=== PATIENT | male | born 1950 | race Caucasian/White ===

== ENCOUNTER → 2016-04-02 | Outpatient (CLI) | payer OTHER ==
[~2016-04-02] MED LIST: ASPI325T39 PO; ATOR10TA88 PO; BUPR-79 PO; BUPRTAB51 PO; CHOL1000 PO; CHOL100010 PO; CIPR-255 PO; COEN100C7 PO; DOXA4TAB PO; DTRSR/2 PO; FLUO20CA35 PO; GLUCTAB7 PO; MULT-506 PO; NAPR1TAB9 PO; OMEG10007 PO; VORT10TA12 PO
--- NOTE | 2016-04-08 07:14 | CODING QUERY MEDICAL NECESSITY ---
SUPPORTING DIAGNOSIS NEEDED A supporting diagnosis is required for the test/procedure performed on this patient in order for us to be reimbursed by the patient's insurance. Please provide a supporting diagnosis for the following test/procedure listed below next to the test name along with your signature. *If there is no additional diagnosis for this patient that would support the following test/procedure please document that below next to the test/procedure. Test(s)/Procedure(s) that require a supporting diagnosis: * PSA DIAGNOSIS: * DOS: 04/02/16 Provider Signature: Date: Thank you Neha Rubin [address] Information Management Once completed, please kindly fax back to [phone] For questions please call [phone]
== END | disposition home or self-care (01) ==
LOC: C.LABPBG 09:33
PROVIDERS: ATTEND Urology
DX: C67.9 Malignant neoplasm of bladder, unspecified (principal); N40.0 Benign prostatic hyperplasia without lower urinary tract symptoms

== ENCOUNTER 2016-07-03 05:08 | Day surgery (SDC) | payer OTHER ==
[2016-06-20 08:33] VITALS: BMI 32.0
--- NOTE | 2016-06-20 09:01 | PAT Medication Instructions ---
Service Date June 20, 2016. Current Home Medication List Atorvastatin (Lipitor), 10 MG PO HS Bupropion (Wellbutrin Sr), 150 MG PO QAM Cholecalciferol (Vitamin D), 1,000 INTER.UNIT PO HS Coenzyme Q10 (Ubidecarenone) (Coq10), 100 MG PO HS Doxazosin Mesylate (Bph) (Cardura Xl), 1 TAB PO HS Fish Oil ([place]-3), 1 CAP PO QAM Kkpqlzdqckf-Sakrzsuzznp-Odi C- (Glucosamine Chondroitin), 1 TAB PO HS Multivitamin (Multivitamin), 1 TAB PO QAM Naproxen (Aleve), 220 MG PO PRN Tolterodine Tartrate (Detrol LA), 1 CAP PO BID Vortioxetine HBr (Trintellix), 10 MG PO QAM Medication Instructions For Your Scheduled Surgery - Hold the following medications as of 06/21/16: Coenzyme Q10 (Ubidecarenone) (Coq10), 100 MG PO HS Fish Oil ([place]-3), 1 CAP PO QAM Kjjirkawbbg-Bjxynswbzhw-Ghn C- (Glucosamine Chondroitin), 1 TAB PO HS - Hold the following medications the morning of surgery: Multivitamin (Multivitamin), 1 TAB PO QAM Naproxen (Aleve), 220 MG PO PRN (otherwise okay to continue per surgeon) - Take the following medications the morning of surgery with a sip of water OTHERWISE NOTHING TO EAT OR DRINK AFTER MIDNIGHT: Bupropion (Wellbutrin Sr), 150 MG PO QAM Vortioxetine HBr (Trintellix), 10 MG PO QAM Tolterodine Tartrate (Detrol LA), 1 CAP PO BID - Take the following medications as scheduled the night before surgery: Cholecalciferol (Vitamin D), 1,000 INTER.UNIT PO HS Doxazosin Mesylate (Bph) (Cardura Xl), 1 TAB PO HS Atorvastatin (Lipitor), 10 MG PO HS Tolterodine Tartrate (Detrol LA), 1 CAP PO BID If you have any questions please call us at [phone] or [phone] or [phone]
--- NOTE | 2016-06-20 09:50 | DIAGNOSTIC IMAGING REPORT ---
CHEST PREADMISSION(PA/LAT) CLINICAL HISTORY: Preoperative evaluation. COMPARISON STUDY: Chest radiograph October 30, 2014. FINDINGS: Lung volumes are normal. There is no pneumothorax or pleural effusion. Mild bibasilar opacities favor atelectasis. There may be a trace right pleural effusion. No evidence of pulmonary edema. Cardiac size is normal. Mediastinal contours are normal. IMPRESSION: 1. Mild bibasilar opacities which favor atelectasis. 2. Trace right pleural effusion. No evidence of pulmonary edema. Electronically signed by: Aki Flores M.D. 06/20/2016 9:48 AM Dictated Date/Time: 06/20/2016 9:44 AM
[2016-06-20 10:06] LABS: BASO % 0.8 %; BASO ABS # 0.04 K/uL (0-0.2); COMPLETE YES; EOS % 5.1 %; HEMATOCRIT 46.8 % (42-52); IG% 0.2 %; LYMPH % 26.7 %; MEAN CELL VOLUME 91.2 fL (80-100); MEAN CORPUSCULAR HGB CONC 32.9 g/dl (32-36); MEAN PLATELET VOLUME 10.4 fL (7.4-10.4); MONO % 10.7 %; NEUT % 56.5 %; PLATELET COUNT 206 K/uL (130-400); RED BLOOD COUNT 5.13 M/uL (4.7-6.1); WHITE BLOOD COUNT 4.86 K/uL (4.8-10.8)
[2016-06-20 10:14] LABS: URINE APPEARANCE CLEAR (CLEAR); URINE BILIRUBIN NEG (NEG); URINE COLOR YELLOW; URINE NITRITE NEG (NEG); UROBILINOGEN NEG (NEG)
[2016-06-20 10:15] LABS: MANUAL MICROSCOPIC REQUIRED? NO; REVIEW REQ? NO
[2016-06-20 10:20] LABS: BUN/CREATININE RATIO 26.2 (10-20); CREATININE 0.9 mg/dl (0.60-1.40); POTASSIUM 4.5 mmol/L (3.5-5.1)
[~2016-07-03] VITALS: Ht 190.5 cm; Wt 119.0 kg
[~2016-07-03 05:08] MED LIST changes: -ASPI325T39 PO; +ATOR10TA82 PO; -ATOR10TA88 PO; -BUPRTAB51 PO; -CHOL1000 PO; -CIPR-255 PO; -FLUO20CA35 PO
[2016-07-03 05:41] VITALS: BP 123/76; PULSE 66; TEMP 36.4; O2SAT 95; Ht 190.5 cm; Wt 119.0 kg
[2016-07-03] MEDS ORDERED: CIPROFLOXACIN / D5W 400 MG IV SCH (06:00)
[2016-07-03] MEDS ORDERED: LACTATED RINGER'S 1000ML 1,000 ML IV SCH (06:00)
[2016-07-03] MEDS ORDERED: ONDANSETRON INJ 2 MG/ML 2 ML VIAL ONE (07:05)
[2016-07-03] MEDS ORDERED: PROPOFOL IV EMULSION 10 MG/ML 20 ML VIAL IV ONE (07:05)
[2016-07-03] MEDS ORDERED: FENTANYL CITRATE INJ 50 MCG/1 ML 2 ML VIAL ONE (07:05)
[2016-07-03] MEDS ORDERED: DEXAMETHASONE SOD INJ 4 MG/ML VIAL ONE (07:05)
[2016-07-03] MEDS ORDERED: LIDOCAINE HCL 2% 2 ML VIAL (20MG/ML) ONE (07:05)
[2016-07-03] MEDS ORDERED: MIDAZOLAM HCL 1 MG/ML 2ML VIAL ONE (07:05)
--- NOTE | 2016-07-03 07:13 | History & Physical Bridge Note ---
H&P Re-Evaluation Bridge Note: I have examined the patient, reviewed the History & Physical and in the interval since the performance of the History & Physical I have noted the following changes of clinical significance: No changes noted
[2016-07-03] MEDS ORDERED: EpHEDrine SULFATE INJ 50 MG/ML AMP ONE (07:50)
[2016-07-03] MEDS ORDERED: CIPR-255 PO (08:06)
--- NOTE | 2016-07-03 08:06 | [facility] Post Operative Brief Note ---
Immediate Operative Summary Operative Date July 03, 2016. Pre-Operative Diagnosis Benign Hypertrophy of the Prostate Post-Operative Diagnosis Same as preop Procedure(s) Performed Cystoscopy; Urolift Surgeon Dr. Heard Rat Exterminator Surgeon(s) none Estimated Blood Loss 0 ml Findings Lateral lobe hypertrophy, slightly asymmetric with the left side more protuberant than the right. 3 implants placed on the left, 2 on the right. Specimens None Drains 18F catheter Anesthesia gen Complication(s) None Disposition Recovery Room / PACU (stable)
[2016-07-03] MEDS ORDERED: PHENAZOPYRIDINE HCL 200 MG TAB PO STA (08:09)
[2016-07-03] MEDS ORDERED: SODIUM CHLORIDE 0.9% 1000ML 1,000 ML IV SCH (08:09)
--- NOTE | 2016-07-03 08:09 | Discharge Instructions ---
Discharge Instructions Date of Service July 03, 2016. Admission Reason for Admission: Benign Prostatic Hyperplasia Discharge Discharge Diagnosis / Problem: BPH Discharge Goals Goal(s): Decrease discomfort, Improve function, Increase independence, Improve disease control, Prevent Disease Progression Activity Recommendations Activity Limitations: resume your previous activity Lifting Limitations: gradually increase as tolerated Exercise/Sports Limitations: gradually increase as tolerated May Resume Sexual Activity: when tolerated Shower/Bathe: no limitations Driving or Machine Use: resume 1 day after discharge . Instructions / Follow-Up Instructions / Follow-Up Please come to Dr. Heard's office to have your catheter removed tomorrow. Please continue all of your meds (tolterodine and doxazosin) until after your follow up appointment with Dr. Heard. It is normal to have some blood in your urine as well as some discomfort in the pelvis. After the catheter is removed, you will likely have some urinary urgency and frequency as a result of the procedure. This will improve with time. Discharge Diet Recommended Diet: Regular Diet Procedures Procedures Performed: Cystoscopy; Urolift Pending Studies Studies pending at discharge: no Medical Emergencies . Who to Call and When: Medical Emergencies: If at any time you feel your situation is an emergency, please call 911 immediately. . Non-Emergent Contact Non-Emergency issues call your: Urologist Call Non-Emergent contact if: you have a fever, temperature is above 101.5, your pain is not controlled, your pain is worsening . . "Provider Documentation" section prepared by Kal Lopez. . VTE Core Measure Inpt VTE Proph given/why not?: Treatment not indicated
[2016-07-03] MEDS ORDERED: ATROPINE SULFATE 0.1 MG/ML 5ML SYR IV PRN (08:15)
[2016-07-03] MEDS ORDERED: OXYCODONE/ACETAMINOPHEN 5-325 TAB PO PRN ×2 (08:15)
[2016-07-03] MEDS ORDERED: ACETAMINOPHEN 325 MG TAB PO PRN (08:15)
[2016-07-03] MEDS ORDERED: EpHEDrine SULFATE INJ 50 MG/ML AMP IV PRN (08:15)
[2016-07-03] MEDS ORDERED: PHENAZOPYRIDINE HOME PACK 200 MG VIAL PO ONE (08:30)
[2016-07-03 08:45] VITALS: BP 119/74; PULSE 69; TEMP 36.4; O2SAT 97
--- NOTE | 2016-07-03 09:02 | OPERATIVE REPORT ---
DATE OF OPERATION: 07/03/2016 PREOPERATIVE DIAGNOSIS: Benign prostatic hypertrophy. POSTOPERATIVE DIAGNOSIS: Benign prostatic hypertrophy. PROCEDURE PERFORMED: Cystoscopy and UroLift prostatic urethral lift. SURGEON: Dr. Heard. ANESTHESIA: General. ESTIMATED BLOOD LOSS: 0. URINE OUTPUT: Not recorded. SPECIMENS: None. DRAINS: An 18-Georgian Dickerson catheter. OPERATION AND FINDINGS: DESCRIPTION OF THE PROCEDURE: Dillan Farr was identified in the preoperative holding area. Appropriate informed consents were reviewed and completed and the patient was transported to the operating suite. Upon arrival, he received appropriate preoperative antibiotics in the form of ciprofloxacin. Adequate general anesthesia was achieved and the patient was placed in dorsal lithotomy position where he was sterilely prepped and draped in standard fashion. I began the case by utilizing a 0 degree lens and the UroLift provided cystoscope with visual obturator. Inspection of the urethra revealed no evidence of stricture disease. Prostate was inspected and found to have a notable lateral lobe hypertrophy with the more prominent left lateral lobe rather than right. Estimated prostatic volume was approximately 40-50 mL. Inspection of the bladder revealed moderate trabeculation and no evidence of any other mucosal disease or other abnormalities. Following this inspection, I exchanged the visual obturator for the UroLift device. The first implant was placed approximately 1.5 centimeters from the bladder neck on the patient's left hand side. This was placed approximately 2/3 of the distance from posterior to anterior on the anterior side. The device was fired without difficulty and the stitch trimmed appropriately with good placement of device. I then advanced the cystoscope back into the bladder and exchanged this device for a new device. The next stitch was placed on the right side again 1.5 centimeters from the bladder neck in a similar location to its mirror image. There was excellent deployment without difficulty. The cystoscope was then advanced back into the bladder and exchanged again. Placement of the suture near the apex of the prostate by finding the verumontanum and moving just inside and advancing 2/[address] towards the anterior surface pushing laterally by approximately 20 degrees. This stitch was placed without difficulty and trimmed appropriately. I advanced back to the bladder and exchanged for a fourth device. This was placed on the mirror image location adjacent to the verumontanum on the right side. Of note, given that it had somewhat of an asymmetric left lateral lobe he still had some protuberance between these 2 stitches on the left hand side. A fifth load was placed directly between my previously placed loads. I did slightly elevate this lateral lobe tacking it anteriorly and laterally. After placing this stitch I inspected from the verumontanum and saw a nice open anterior channel from the veru into the bladder. I then left the bladder full. There was excellent hemostasis. I withdrew the cystoscope. An 18-Georgian coude catheter was placed without difficulty and the patient was reversed from anesthesia and taken to the PACU in stable condition. I attest to the content of the Intraoperative Record and any orders documented therein. Any exceptio ns are noted below.
[2016-07-03 09:15] VITALS: BP 116/74; PULSE 60; TEMP 36.4; O2SAT 98
[2016-07-03 09:45] VITALS: BP 129/69; PULSE 64; TEMP 36.8; O2SAT 97
--- NOTE | 2016-07-03 14:29 | Anesthesiology Progress Note ---
Anesthesia Post Op Note Date & Time July 03, 2016 at 14:29 Vital Signs Pain Intensity: 2 Vital Signs Past 12 Hours Date Time Temp Pulse Resp B/P Pulse Ox O2 Delivery O2 Flow Rate FiO2 07/03/16 09:45 36.8 64 16 129/69 97 Room Air 07/03/16 09:15 36.4 60 16 116/74 98 Room Air 07/03/16 08:45 36.4 69 16 119/74 97 Nasal Cannula 2 07/03/16 08:25 62 16 118/78 97 Nasal Cannula 3 07/03/16 08:15 66 16 125/73 96 Nasal Cannula 3 07/03/16 08:05 65 16 129/80 97 Mask 6 07/03/16 07:58 36.2 72 16 125/76 96 Mask 10 07/03/16 05:41 36.4 66 18 123/76 95 Room Air Notes Mental Status: alert / awake / arousable, participated in evaluation Pt Amnestic to Procedure: Yes Nausea / Vomiting: adequately controlled Pain: adequately controlled Airway Patency, RR, SpO2: stable & adequate BP & HR: stable & adequate Hydration State: stable & adequate Anesthetic Complications: no major complications apparent
[2016-11-14] MEDS ORDERED: CHOL1000 PO (11:25)
== END 2016-07-03 09:55 | disposition home or self-care (01) ==
LOC: C.ACU 05:08
PROVIDERS: ATTEND Urology
DX: N40.1 Benign prostatic hyperplasia with lower urinary tract symptoms (principal); R35.0 Frequency of micturition; R39.15 Urgency of urination; N52.9 Male erectile dysfunction, unspecified; Z85.51 Personal history of malignant neoplasm of bladder; I35.8 Other nonrheumatic aortic valve disorders; I48.0 Paroxysmal atrial fibrillation; G25.0 Essential tremor; F32.9 Major depressive disorder, single episode, unspecified; F90.9 Attention-deficit hyperactivity disorder, unspecified type; E78.00 Pure hypercholesterolemia, unspecified; G60.9 Hereditary and idiopathic neuropathy, unspecified; F51.11 Primary hypersomnia; G47.30 Sleep apnea, unspecified; M99.06 Segmental and somatic dysfunction of lower extremity; Z79.899 Other long term (current) drug therapy

== ENCOUNTER → 2016-07-18 | Outpatient (CLI) | payer OTHER ==
[~2016-07-18] MED LIST changes: +CHOL1000 PO; +CIPR-255 PO
--- NOTE | 2016-07-18 10:33 | DIAGNOSTIC IMAGING REPORT ---
AP PELVIS AND BILATERAL HIPS 5 VIEWS CLINICAL HISTORY: Bilateral hip pain COMPARISON: None. DISCUSSION: No acute fractures are visualized. There are no erosive or destructive changes. Prostate brachytherapy seeds are visualized. There are moderate osteoarthritic changes present within the left hip. There are minor osteoarthritic changes within the right hip. IMPRESSION: 1. No acute fractures 2. Moderate osteoarthritic changes within the left hip and minor osteoarthritic changes within the right hip. Electronically signed by: Enio Beach M.D. 07/18/2016 10:32 AM Dictated Date/Time: 07/18/2016 10:24 AM
== END | disposition home or self-care (01) ==
LOC: C.RDSM 09:52
PROVIDERS: ATTEND Family Medicine
DX: M25.551 Pain in right hip (principal); M16.12 Unilateral primary osteoarthritis, left hip

== ENCOUNTER → 2016-08-21 | Day surgery (SDC) | payer OTHER ==
[2016-08-13 13:14] VITALS: Ht 190.5 cm; Wt 115.9 kg
[~2016-08-21] VITALS: Ht 190.5 cm; Wt 115.9 kg
[~2016-08-21] MED LIST changes: -ATOR10TA82 PO; +ATOR10TA88 PO; -CIPR-255 PO; -DOXA4TAB PO; -DTRSR/2 PO; +PROPOFOL IV EMULSION 10 MG/ML 20 ML VIAL IV ONE; +SODIUM CHLORIDE 0.9% 500ML 500 ML IV ONE
[2016-08-21 13:20] VITALS: TEMP 36.7
--- NOTE | 2016-08-21 13:21 | Endo History and Physical ---
History & Physical Date of Service: Aug 21, 2016. Chief Complaint: history of polyp Referring Physician: Dr. Duran Nolan History of Present Illness 65 yo CM who presents for colonoscopy secondary to history of colon polyps. Past Medical History Arthritis, Male Genitourinary Prob., Anxiety, Cancer, High Cholesterol, Depression Past Surgical History Hx Cardiac Surgery: No Hx Internal Defibrillator: No Hx Pacemaker: No Hx Abdominal Surgery: Yes (APPY, COLON RESECTION (SBO), HERNIA REPAIR X3) Hx of Implantable Prosthesis: No Hx Post-Op Nausea and Vomiting: No Hx Cancer Surgery: Yes (TURBT/CYSTO) Hx Thoracic Surgery: No Hx Orthopedic: Yes (RT LEG SURG, LT HAND SURG) Hx Urinary Tract Surgery: Yes (CYSTO X MULTIPLE Q 4-6 MONTHS) Family History None Social History Smoking Status: Never Smoker Hx Substance Use: No Hx Alcohol Use: Yes (RARELY) Allergies Coded Allergies: Penicillin V (Verified Allergy, Unknown, RASH, SKIN DISCOLORATION, 08/13/16 ) Ether (Verified Adverse Reaction, Unknown, SEVERE N/V, 08/13/16) Current Medications Reported Home Medications Medications Dose Route/Sig Max Daily Dose Days Date Category Aleve (Naproxen) 220 Mg Tab 220 Mg PO PRN 06/20/16 Reported Coq10 (Coenzyme Q10 (Ubidecarenone)) 100 Mg Cap 100 Mg PO HS 06/20/16 Reported Trintellix (Vortioxetine HBr) 10 Mg Tab 10 Mg PO QAM 06/20/16 Reported Multivitamin (Multivitamins) Tab 1 Tab PO QAM 04/26/15 Reported [place]-3 (Fish Oil) 1 Ea Cap 1 Cap PO QAM 04/26/15 Reported Wellbutrin Sr (Bupropion HCl) 150 Mg Ertab 150 Mg PO QAM 04/26/15 Reported Vitamin D (Cholecalciferol) 1,000 Inter.unit Tab 1,000 Inter.unit PO HS 06/01/14 Reported Glucosamine Chondroitin (Nxbrcohqise-Kueyimmsvqu-Uqe C-) 1 Tab Tab 1 Tab PO HS 06/01/14 Reported Lipitor (Atorvastatin Calcium) 10 Mg Tab 10 Mg PO HS 04/30/14 Reported Vital Signs Weight (Kilograms): 115.91 Height (Feet): 6 Height (Inches): 3 Physical Exam General Appearance: WD/WN, no apparent distress Respiratory/Chest: Auscultation: breath sounds normal Cardiovascular: Heart Auscultation: RRR Abdomen: Bowel Sounds: normal Inspection & Palpation: soft, non-distended, no tenderness, guarding & rebound Assessment and Plan Assessment: 65 yo CM who presents for colonoscopy secondary to history of colon polyps. Plan: Proceed with colonoscopy.
--- NOTE | 2016-08-21 14:20 | GI REPORT ---
Procedure Date: 08/21/2016 1:44 PM Procedure: Colonoscopy Indications: High risk colon cancer surveillance: Personal history of colonic polyps Medicines: Monitored Anesthesia Care Complications: No immediate complications. Estimated Blood Loss: Estimated blood loss: none. Procedure: Pre-Anesthesia Assessment: - Prior to the procedure, a History and Physical was performed, and patient medications and allergies were reviewed. The patient's tolerance of previous anesthesia was also reviewed. The risks and benefits of the procedure and the sedation options and risks were discussed with the patient. All questions were answered, and informed consent was obtained. Prior Anticoagulants: The patient has taken no previous anticoagulant or antiplatelet agents. ASA Grade Assessment: II - A patient with mild systemic disease. After reviewing the risks and benefits, the patient was deemed in satisfactory condition to undergo the procedure. After I obtained informed consent, the scope was passed under direct vision. Throughout the procedure, the patient's blood pressure, pulse, and oxygen saturations were monitored continuously. The scope was introduced through the anus and advanced to the terminal ileum. The colonoscopy was performed without difficulty. The patient tolerated the procedure well. The quality of the bowel preparation was good. The ileocecal valve, appendiceal orifice, and rectum were photographed. Findings: Scattered small-mouthed diverticula were found in the entire colon. Impression: - Diverticulosis in the entire examined colon. - No specimens collected. Recommendation: - Resume previous diet. - Continue present medications. - Repeat colonoscopy in 5 years for surveillance. - Return to primary care physician as previously scheduled. Yon Pa DO 08/21/2016 2:20:15 PM This report has been signed electronically. Note Initiated On: 08/21/2016 1:44 PM I attest to the content of the Intraoperative Record and orders documented therein, exceptions below
--- NOTE | 2016-08-21 14:32 | Discharge Instructions ---
Endoscopy Patient Instructions Date / Procedure(s) Performed Aug 21, 2016. Colonoscopy Allergy Information Coded Allergies: Penicillin V (Verified Allergy, Unknown, RASH, SKIN DISCOLORATION, 08/13/16 ) Ether (Verified Adverse Reaction, Unknown, SEVERE N/V, 08/13/16) Discharge Date / Findings Aug 21, 2016. Diverticulosis Medication Instructions Stopped Medication(s): stopped MVI,supplements 2 weeks ago OK to resume all medications today as prescribed Reported Home Medications Medications Dose Route/Sig Max Daily Dose Days Date Category Aleve (Naproxen) 220 Mg Tab 220 Mg PO PRN 06/20/16 Reported Coq10 (Coenzyme Q10 (Ubidecarenone)) 100 Mg Cap 100 Mg PO HS 06/20/16 Reported Trintellix (Vortioxetine HBr) 10 Mg Tab 10 Mg PO QAM 06/20/16 Reported Multivitamin (Multivitamins) Tab 1 Tab PO QAM 04/26/15 Reported [place]-3 (Fish Oil) 1 Ea Cap 1 Cap PO QAM 04/26/15 Reported Wellbutrin Sr (Bupropion HCl) 150 Mg Ertab 150 Mg PO QAM 04/26/15 Reported Vitamin D (Cholecalciferol) 1,000 Inter.unit Tab 1,000 Inter.unit PO HS 06/01/14 Reported Glucosamine Chondroitin (Ecbkmqvkcdd-Hzmxkffgzhx-Onq C-) 1 Tab Tab 1 Tab PO HS 06/01/14 Reported Lipitor (Atorvastatin Calcium) 10 Mg Tab 10 Mg PO HS 04/30/14 Reported Provider Instructions Activity Restrictions - No exercising or heavy lifting for 24 hours. - Do not drink alcohol the day of the procedure. - Do not drive a car or operate machinery until the day after the procedure. - Do not make any important decisions or sign important papers in 24 hours after the procedure. Following Day: - Return to full activity which may include returning to work/school. Diet Start your diet with liquids and light foods (jello, soup, juice, toast). Then eat your usual diet if not nauseated. Treatment For Common After Affects For mild abdominal pain, bloating, or excessive gas: - Rest - Eat lightly - Lie on right side Follow-Up Information Follow-up with Dr. Duran Nolan as scheduled Anesthesia Information What You Should Know You have had a procedure that required some medicine to reduce anxiety and discomfort. This treatment is called moderate sedation. After receiving the treatment, you may be sleepy, but you will be able to breathe on your own. The effects of the treatment may last for several hours. Follow these instructions along with Activity/Diet recommendations noted above: * Do NOT do anything where dizziness or clumsiness would be dangerous. * Rest quietly at home today, then you can be up and about tomorrow. * Have a responsible person stay with you the rest of today. * You may have had an I.V. today. If so, you may take the dressing off later today. Recommendations Call your doctor if: * Trouble breathing * Continuous vomiting for more than 24 hours * Temperature above 101 degrees * Severe abdominal pain or bloating * Pain not relieved by pain medicine ordered * There is increased drainage or redness from any incision * A large amount of rectal bleeding greater than 2-3 tablespoons. (If you had a polyp/s removed or have hemorrhoids, a small amount of blood - from the rectum is to be expected.) * You have any unanswered questions or concerns. IN THE EVENT OF A SERIOUS EMERGENCY, GO TO THE NEAREST EMERGENCY ROOM Your discharge instructions were prepared by provider Yon Pa. Patient Instructions Signature Page Dillan Farr Patient (or Guardian) Signature/Date: I have read and understand the instructions given to me by my caregivers. Caregiver/RN/Doctor Signature/Date: The above-named patient and/or guardian has received patient instructions on this date. + Original Patient Signature Page (only) stays with chart. Please make copy for patient.
[2016-08-21 14:47] VITALS: BP 113/86; PULSE 56; O2SAT 96
--- NOTE | 2016-08-26 15:03 | Anesthesiology Progress Note ---
Anesthesia Post Op Note Date & Time Aug 26, 2016 at 15:03 Vital Signs Pain Intensity: 0 Notes Mental Status: alert / awake / arousable, participated in evaluation Pt Amnestic to Procedure: Yes Nausea / Vomiting: adequately controlled Pain: adequately controlled Airway Patency, RR, SpO2: stable & adequate BP & HR: stable & adequate Hydration State: stable & adequate Anesthetic Complications: no major complications apparent
== END | disposition home or self-care (01) ==
LOC: C.GI 12:59
PROVIDERS: ATTEND Internal Medicine
DX: Z12.11 Encounter for screening for malignant neoplasm of colon (principal); Z86.010 Personal history of colon polyps; K57.30 Diverticulosis of large intestine without perforation or abscess without bleeding; E78.00 Pure hypercholesterolemia, unspecified; F41.9 Anxiety disorder, unspecified; F32.9 Major depressive disorder, single episode, unspecified; Z79.899 Other long term (current) drug therapy

== ENCOUNTER → 2016-12-10 | Day surgery (SDC) | payer OTHER ==
[2016-11-14 11:29] VITALS: Ht 190.5 cm; Wt 115.9 kg
[~2016-12-10] VITALS: Ht 190.5 cm; Wt 115.9 kg
[~2016-12-10] MED LIST changes: -CHOL100010 PO; +IOPAMIDOL INJ 61% 15 ML VIAL ONE; +LIDOCAINE HCL 1% MPF 5 ML VIAL ONE; -PROPOFOL IV EMULSION 10 MG/ML 20 ML VIAL IV ONE; -SODIUM CHLORIDE 0.9% 500ML 500 ML IV ONE; +SODIUM CHLORIDE 0.9% INJ 10 ML VIAL ONE
[2016-12-10 14:35] VITALS: TEMP 36.7
--- NOTE | 2016-12-10 14:37 | Discharge Instructions ---
Discharge Instructions Date of Service Dec 10, 2016. Visit Reason for Visit: Lumbar Spinal Stenosis Discharge Discharge Diagnosis / Problem: right leg pain Discharge Goals Goal(s): Decrease discomfort, Improve function Medications Stopped Medications Name(s): told to stop blood thinners Activity Recommendations Activity Limitations: resume your previous activity Anesthesia . Post Anesthesia Instructions: If you have had General Anesthesia or IV Sedation: * Do not drive today. * Resume driving when surgeon permits. * Do not make important decisions or sign legal documents today. * Call surgeon for: 1. Temperature elevations greater than 101 degrees F. 2. Uncontrollable pain. 3. Excessive bleeding. 4. Persistent nausea and vomiting. 5. Medication intolerance (nausea, vomiting or rash). * For nausea and vomiting use only clear liquids such as: tea, soda, bouillon until nausea subsides, then gradually increase diet as tolerated. * If you have any concerns or questions, call your surgeon's office. If physician is unavailable and it is an emergency, call 911 or go to the nearest emergency room. . Diet Recommendations Recommended Home Diet: resume previous diet Procedures Procedures Performed: LUMBAR EPIDURAL STEROID INJECTION Pending Studies Studies pending at discharge: no Medical Emergencies . Who to Call and When: Medical Emergencies: If at any time you feel your situation is an emergency, please call 911 immediately. . Non-Emergent Contact Non-Emergency issues call your: Specialist . . "Provider Documentation" section prepared by Kem Tripathi. .
--- NOTE | 2016-12-10 14:47 | OPERATIVE REPORT ---
DATE OF OPERATION: 12/10/2016 PREOPERATIVE DIAGNOSIS: Severe L5-S1 stenosis with lower extremity radiculopathy. POSTOPERATIVE DIAGNOSIS: Same. PROCEDURE: Caudal epidural steroid injection under fluoroscopic guidance. INDICATIONS: The patient is a 66-year-old white male who presents today with a 10+ year history of low back pain. He describes radicular sensations that did go into the leg. It is brought out with prolonged walking. He is noted to have severe multifactorial stenosis at L5-S1. He presents today for an epidural. It will be done via the caudal approach given the fact that the patient had taken ibuprofen within the 3-day window. PHYSICAL EXAMINATION: GENERAL: Pleasant male seated comfortably in no apparent distress. MUSCULOSKELETAL: He had normal lower extremity strength. Sensation was subjectively decreased at L4 bilaterally. Negative seated straight leg raises. Negative Matias maneuver. CONSENT: Verbal and written consent was obtained from the patient. Risks and benefits were reviewed. Risks include, but are not limited to epidural abscess, epidural hematoma, allergic reaction, and dural puncture. The patient wishes to proceed. DESCRIPTION OF PROCEDURE: The patient was taken back to the special procedures room at [facility], where he was maintained in a prone position. Backside was cleansed with Betadine x3 and a dry sterile dressing was applied. Fluoroscope was used to identify on the lateral view. The sacral hiatus and the overlying skin was anesthetized with 4 mL of lidocaine 1% with a 25-gauge 1-1/2 inch needle. A 25-gauge 3-1/2 inch spinal needle was then directed into the sacral canal under lateral fluoroscopic guidance. He then underwent injection after negative aspiration of 40 mg of Depo-Medrol and 4 mL of preservative free sodium chloride. Injection was well tolerated. DISPOSITION: 1. The patient was taken out into the discharge recovery area, where he will be discharged home once discharge criteria have been met. 2. Follow up in the [facility] office in 2-4 weeks. I attest to the content of the Intraoperative Record and any orders documented therein. Any exception s are noted below.
[2016-12-10 14:50] VITALS: BP 130/84; PULSE 58; O2SAT 98
== END | disposition home or self-care (01) ==
LOC: X.SURG 13:13
PROVIDERS: ATTEND Physical Medicine & Rehabilitation
DX: M48.061 Spinal stenosis, lumbar region without neurogenic claudication (principal); M54.16 Radiculopathy, lumbar region; M16.11 Unilateral primary osteoarthritis, right hip; M16.12 Unilateral primary osteoarthritis, left hip; Z85.51 Personal history of malignant neoplasm of bladder; G47.30 Sleep apnea, unspecified

== ENCOUNTER → 2017-05-07 | Outpatient (CLI) | payer OTHER ==
[~2017-05-07] MED LIST changes: +ATOR10TA82 PO; -ATOR10TA88 PO; -IOPAMIDOL INJ 61% 15 ML VIAL ONE; -LIDOCAINE HCL 1% MPF 5 ML VIAL ONE; -SODIUM CHLORIDE 0.9% INJ 10 ML VIAL ONE
== END | disposition home or self-care (01) ==
LOC: C.PATHSPEC 18:33
PROVIDERS: ATTEND Dermatology
DX: L73.8 Other specified follicular disorders (principal)

== ENCOUNTER → 2017-05-27 | Outpatient (CLI) | payer OTHER | END | disposition home or self-care (01) | LOC: C.LABPBG 11:18 | PROVIDERS: ATTEND Internal Medicine | DX: R35.0 Frequency of micturition (principal); R39.15 Urgency of urination ==

== ENCOUNTER 2017-06-30 06:52 | Day surgery (SDC) | payer OTHER ==
[2017-06-18 15:50] VITALS: BMI 32.0
[2017-06-19 10:24] LABS: BASO % 0.6 %; BASO ABS # 0.04 K/uL (0-0.2); EOS % 2.5 %; EOS ABS # 0.18 K/uL (0-0.5); HEMATOCRIT 48.4 % (42-52); HEMOGLOBIN 16.2 g/dL (14.0-18.0); IG# 0.01 K/uL (0.00-0.02); LYMPH % 27.7 %; LYMPH ABS # 1.97 K/uL (1.2-3.4); MEAN CELL VOLUME 91.5 fL (80-100); MEAN CORPUSCULAR HEMOGLOBIN 30.6 pg (25-34); MEAN CORPUSCULAR HGB CONC 33.5 g/dl (32-36); MEAN PLATELET VOLUME 10.2 fL (7.4-10.4); MONO % 6.5 %; MONO ABS # 0.46 K/uL (0.11-0.59); NEUT % 62.6 %; NEUT ABS # 4.44 K/uL (1.4-6.5); PLATELET COUNT 211 K/uL (130-400); RED CELL DISTRIBUTION WIDTH CV 13.1 % (11.5-14.5); RED CELL DISTRIBUTION WIDTH SD 43.6 fL (36.4-46.3)
--- NOTE | 2017-06-19 10:30 | DIAGNOSTIC IMAGING REPORT ---
CHEST 2 VIEWS ROUTINE CLINICAL HISTORY: Bladder cancer. Preoperative evaluation. COMPARISON STUDY: Chest radiograph June 20, 2016. FINDINGS: Lung volumes are normal. No pneumothorax or pleural effusion is noted. Cardiomediastinal silhouette is stable. There no evidence for pulmonary edema. No consolidation is identified. IMPRESSION: No acute cardiopulmonary findings. Electronically signed by: Aki Flores M.D. 06/19/2017 10:29 AM Dictated Date/Time: 06/19/2017 10:26 AM
[2017-06-19 10:36] LABS: CALCIUM 9.2 mg/dl (8.5-10.1); CREATININE 0.97 mg/dl (0.60-1.40); POTASSIUM 4.3 mmol/L (3.5-5.1)
[~2017-06-30] VITALS: Ht 190.5 cm; Wt 115.9 kg
[2017-06-30] VITALS (10 sets, daily range): BP systolic 101–128; BP diastolic 52–75; PULSE 64–76; TEMP 36.6–36.9; O2SAT 93–96; Ht 190.5 cm; Wt 115.9 kg
[~2017-06-30 06:52] MED LIST changes: +CIPROFLOXACIN / D5W 400 MG IV SCH; +FLM4 PO; +LACTATED RINGER'S 1000ML 1,000 ML IV SCH
[2017-06-30] MEDS ORDERED: ONDANSETRON INJ 2 MG/ML 2 ML VIAL IV PRN ×2 (07:45→10:30)
[2017-06-30] MEDS ORDERED: ATROPINE SULFATE 0.1 MG/ML 5ML SYR IV PRN (07:45)
[2017-06-30] MEDS ORDERED: PHENYLEPHRINE 100MCG/ML 5ML SYR IV PRN (07:45)
[2017-06-30] MEDS ORDERED: HYDROmorphone INJ 2 MG/ML SYR/VIAL IV PRN (07:45)
[2017-06-30] MEDS ORDERED: EpHEDrine SULFATE INJ 50 MG/ML AMP IV PRN (07:45)
[2017-06-30] MEDS ORDERED: ONDANSETRON INJ 2 MG/ML 2 ML VIAL ONE (08:36)
[2017-06-30] MEDS ORDERED: MIDAZOLAM HCL 1 MG/ML 2ML VIAL ONE (08:36)
[2017-06-30] MEDS ORDERED: PROPOFOL IV EMULSION 10 MG/ML 20 ML VIAL ONE (08:36)
[2017-06-30] MEDS ORDERED: LIDOCAINE HCL 2% 2 ML VIAL (20MG/ML) ONE (08:36)
[2017-06-30] MEDS ORDERED: FENTANYL CITRATE INJ 50 MCG/1 ML 2 ML VIAL ONE (08:36)
[2017-06-30] MEDS ORDERED: DEXAMETHASONE SOD INJ 4 MG/ML VIAL ONE (08:36)
[2017-06-30] MEDS ORDERED: EpHEDrine SULFATE INJ 50 MG/ML AMP ONE (09:38)
--- NOTE | 2017-06-30 10:26 | [facility] Operative Report ---
Operative Report Operative Date June 30, 2017. Pre-Operative Diagnosis Benign prostate hyperplasia Post-Operative Diagnosis Same as preop Procedure(s) Performed Transurethral Resection Prostate, cystoscopy Surgeon Dr. eHard Census Taker Surgeon(s) none Estimated Blood Loss 10 cc Specimens none, as per surgeon Drains 22 [place]ian Dickerson Anesthesia Type General Complication(s) none Disposition yes Recovery Room / PACU Indications BPH with symptoms Description of Procedure The patient was identified in the preoperative holding area, appropriate informed consents reviewed and completed and the patient was transported to the operating suite. Upon arrival he received appropriate preoperative antibiotics in the form of ciprofloxacin, adequate general anesthesia was achieved and he was placed in dorsal lithotomy position where he was sterilely prepped and draped in standard fashion. We began the case by passing a 27 Bel[place]ian resectoscope with 30 lens and visual silk crepe machine operator. His urethra revealed no evidence of stricture disease. His prostate was notably enlarged with significant hypertrophy and obstruction from the lateral lobes, with a small intravesical bar. He additionally is status post uro-lift, and his previously placed uro-lift sutures were visualized with redundant tissue pillowing around them. Full inspection of the bladder was conducted, revealing no evidence of tumors or other gross abnormalities. Ureteral orifices were identified in orthotopic position. I then exchanged the visual obturator for a resecting element, choosing a button electrode. I began by incising the bladder neck at 5 and 7:00 with care to avoid encroachment upon the ureteral orifices. I then resected the area between these 2 incisions flattening the bladder neck and eliminating the intravesical component. After ensuring excellent hemostasis from this area , I progressed to the left lateral lobe followed by the right lateral lobe, ultimately concluding my resection by addressing the apical tissue. His previously placed uro-lift sutures were removed in the midst of this resection. At the conclusion of the resection, his prostatic urethra was widely patent. I ensured excellent hemostasis before concluding the case. I then left the bladder full, removed the scope, and placed a 22 [place]ian Dickerson catheter with 30 cc balloon. He was subsequently extubated and taken to the PACU in stable condition. I attest to the content of the Intraoperative Record and any orders documented therein. Any exceptions are noted below.
[2017-06-30] MEDS ORDERED: ACETAMINOPHEN 325 MG TAB PO PRN (10:30)
[2017-06-30] MEDS ORDERED: ACETAMINOPHEN/CODEINE 300/30MG TAB PO PRN (10:30)
[2017-06-30] MEDS ORDERED: HYDROmorphone INJ 0.5 MG/0.5 ML SYR ONE (10:53)
[2017-06-30] MEDS ORDERED: IV FLUIDS COMPLETED PRN (11:45)
--- NOTE | 2017-06-30 11:46 | Anesthesiology Progress Note ---
Anesthesia Post Op Note Date & Time June 30, 2017 at 11:46 Vital Signs Pain Intensity: 3 Vital Signs Past 12 Hours Date Time Temp Pulse Resp B/P (MAP) Pulse Ox O2 Delivery O2 Flow Rate FiO2 06/30/17 11:20 36.6 67 18 123/76 94 Room Air 06/30/17 11:10 36.6 68 18 111/75 97 Room Air 06/30/17 11:00 66 18 116/74 96 Room Air 06/30/17 10:50 68 18 118/72 96 Oxymask 10 06/30/17 10:40 69 16 130/79 97 Oxymask 10 06/30/17 10:30 36.4 78 16 122/72 98 Oxymask 10 06/30/17 07:43 36.7 64 15 128/75 (92) 96 Room Air Notes Mental Status: alert / awake / arousable, participated in evaluation Pt Amnestic to Procedure: Yes Nausea / Vomiting: adequately controlled Pain: adequately controlled Airway Patency, RR, SpO2: stable & adequate BP & HR: stable & adequate Hydration State: stable & adequate Anesthetic Complications: no major complications apparent
[2017-06-30] MEDS: LACTATED RINGER'S 1000ML 1,000 ML IV SCH ×2 (12:48→20:41)
[2017-06-30] MEDS ORDERED: PHEN95TA14 PO (13:34)
[2017-06-30] MEDS ORDERED: CIPR-255 PO (13:34)
--- NOTE | 2017-06-30 13:37 | Discharge Instructions ---
Discharge Instructions Date of Service June 30, 2017. Admission Reason for Admission: Benign Prostatic Hypertrophy Discharge Discharge Diagnosis / Problem: BPH Discharge Goals Goal(s): Decrease discomfort, Improve function, Increase independence, Improve disease control Activity Recommendations Activity Limitations: resume your previous activity Lifting Limitations: gradually increase as tolerated Exercise/Sports Limitations: gradually increase as tolerated May Resume Sexual Activity: when tolerated Shower/Bathe: no limitations Driving or Machine Use: no limitations . Instructions / Follow-Up Instructions / Follow-Up Please keep your previously scheduled follow up appointment. Current Hospital Diet Patient's current hospital diet: Regular Diet Discharge Diet Recommended Diet: Regular Diet Procedures Procedures Performed: Transurethral Resection Prostate, cystoscopy Pending Studies Studies pending at discharge: no Medical Emergencies . Who to Call and When: Medical Emergencies: If at any time you feel your situation is an emergency, please call 911 immediately. . Non-Emergent Contact Non-Emergency issues call your: Urologist Call Non-Emergent contact if: you have a fever, temperature is above 101.5, your pain is not controlled, your pain is worsening . . "Provider Documentation" section prepared by Kal Lopez. .
[2017-06-30] MEDS ORDERED: MoRPHine SULFATE 4 MG/ML 1 ML CARP\\VIAL IV PRN (16:30)
[2017-06-30] MEDS ORDERED: BELLADONNA/OPIUM SUPP 60 MG SUPP PR PRN (16:30)
[2017-06-30] MEDS: OXYCODONE/ACETAMINOPHEN 5-325 TAB PO PRN ×2 (17:17→21:17)
[2017-06-30] MEDS ORDERED: ATORVASTATIN 10 MG TAB PO SCH (21:00)
[2017-06-30] MEDS: CIPROFLOXACIN 500 MG TAB PO SCH (21:17)
[2017-07-01] MEDS: OXYCODONE/ACETAMINOPHEN 5-325 TAB PO PRN ×2 (01:27→08:04)
[2017-07-01 02:49] VITALS: BP 96/55; PULSE 63; TEMP 36.9; O2SAT 95
[2017-07-01] MEDS: LACTATED RINGER'S 1000ML 1,000 ML IV SCH (05:28)
[2017-07-01 07:22] LABS: BASO % 0.2 %; BASO ABS # 0.02 K/uL (0-0.2); EOS % 0.8 %; EOS ABS # 0.08 K/uL (0-0.5); HEMATOCRIT 41.4 % (42-52); HEMOGLOBIN 13.9 g/dL (14.0-18.0); IG# 0.03 K/uL (0.00-0.02); LYMPH % 18.2 %; LYMPH ABS # 1.73 K/uL (1.2-3.4); MEAN CELL VOLUME 89.2 fL (80-100); MEAN CORPUSCULAR HGB CONC 33.6 g/dl (32-36); MEAN PLATELET VOLUME 9.9 fL (7.4-10.4); MONO % 10.7 %; MONO ABS # 1.02 K/uL (0.11-0.59); NEUT % 69.8 %; NEUT ABS # 6.64 K/uL (1.4-6.5); PLATELET COUNT 185 K/uL (130-400); RED CELL DISTRIBUTION WIDTH CV 12.9 % (11.5-14.5); WHITE BLOOD COUNT 9.52 K/uL (4.8-10.8)
[2017-07-01 07:25] VITALS: BP 105/63; PULSE 60; TEMP 37; O2SAT 95
[2017-07-01 07:52] LABS: CALCIUM 8.3 mg/dl (8.5-10.1); CREATININE 0.85 mg/dl (0.60-1.40); POTASSIUM 3.8 mmol/L (3.5-5.1)
--- NOTE | 2017-07-01 07:53 | Anesthesiology Progress Note ---
Anesthesia Post Op Note Date & Time July 01, 2017 at 07:53 Vital Signs Vital Signs Past 12 Hours Date Time Temp Pulse Resp B/P (MAP) Pulse Ox O2 Delivery O2 Flow Rate FiO2 07/01/17 07:25 37.0 60 18 105/63 (77) 95 Room Air 07/01/17 02:49 36.9 63 16 96/55 (69) 95 Room Air 06/30/17 23:47 Room Air 06/30/17 23:23 36.9 70 16 101/52 (68) 93 Room Air 06/30/17 20:00 Room Air Notes Mental Status: alert / awake / arousable, participated in evaluation Pt Amnestic to Procedure: Yes Nausea / Vomiting: adequately controlled Pain: adequately controlled Airway Patency, RR, SpO2: stable & adequate BP & HR: stable & adequate Hydration State: stable & adequate Anesthetic Complications: no major complications apparent
--- NOTE | 2017-07-01 07:55 | Progress Note ---
Progress Note Date of Service July 01, 2017. Progress Note Minor bladder spasms overnight, no other issues NAD AAOx3 abd soft urine completely clear A/P: POD #1 s/p TURP - voiding trial - d/c home
--- NOTE | 2017-07-01 07:56 | Discharge Summary ---
Discharge Summary Date of Service July 01, 2017. Admission Date/Reason June 30, 2017 at 10:28 Benign Prostatic Hypertrophy. Discharge Date/Disposition June 30, 2017 Home Diagnosis Principal Diagnosis: BPH Procedure(s) Performed TURP Medication Reconciliation New Medications: Ciprofloxacin Hcl (Cipro) 500 Mg Tab 500 MG PO BID, #6 TAB Phenazopyridine Hcl (Azo Tabs) 95 Mg Tab 2 TABS PO Q8, #30 Continued Medications: Atorvastatin (Lipitor) 10 Mg Tab 10 MG PO HS, TAB Bupropion (Wellbutrin Sr) 150 Mg Ertab 150 MG PO QAM, TAB Cholecalciferol (Vitamin D3) 1,000 Unit Tab 1000 UNIT PO HS Coenzyme Q10 (Ubidecarenone) (Coq10) 100 Mg Cap 100 MG PO HS Fish Oil (Sinclair-3) 1 Ea Cap 1 CAP PO QAM, CAP Nqecbczcpmv-Sagnvlpkjug-Rqv C- (Glucosamine Chondroitin) 1 Tab Tab 1 TAB PO HS Multivitamin (Multivitamin) Tab 1 TAB PO QAM, TAB Naproxen (Aleve) 220 Mg Tab 220 MG PO PRN, TAB Vortioxetine HBr (Trintellix) 10 Mg Tab 10 MG PO QAM Discontinued Medications: Tamsulosin HCl (Tamsulosin HCl) 0.4 Mg Cap 0.4 MG PO QAM Admission Physical Exam As per Admitting History & Physical. Hospital Course Admitted for TURP - in summary, he tolerated the procedure very well - progressed well overnight - mild bladder spasms, but no other issues - passed voiding trial on POD#1 - d/c home in stable condition Discharge Instructions Please refer to the electronic Patient Visit Report (Discharge Instructions) for additional information.
[2017-07-01] MEDS: CIPROFLOXACIN 500 MG TAB PO SCH (08:04)
[2017-07-01] MEDS ORDERED: VORTIOXETINE HBR 10 MG PO SCH (09:00)
[2017-07-01] MEDS ORDERED: BuPROPion SR 150 MG TABCR PO SCH (09:00)
[2017-07-01 09:57] VITALS: BP 105/63; PULSE 60; TEMP 37; O2SAT 95
== END 2017-07-01 11:06 | disposition home or self-care (01) ==
LOC: C.ACU 06:52 → C.MSN 10:28 → ENRESERV 11:06
PROVIDERS: ADMIT Urology; ATTEND Urology
DX: N40.0 Benign prostatic hyperplasia without lower urinary tract symptoms (principal); F90.9 Attention-deficit hyperactivity disorder, unspecified type; I35.8 Other nonrheumatic aortic valve disorders; M19.90 Unspecified osteoarthritis, unspecified site; G25.0 Essential tremor; F32.9 Major depressive disorder, single episode, unspecified; E78.00 Pure hypercholesterolemia, unspecified; I48.0 Paroxysmal atrial fibrillation; G60.9 Hereditary and idiopathic neuropathy, unspecified; G47.30 Sleep apnea, unspecified; Z85.51 Personal history of malignant neoplasm of bladder; Z83.6 Family history of other diseases of the respiratory system; Z82.49 Family history of ischemic heart disease and other diseases of the circulatory system; Z83.49 Family history of other endocrine, nutritional and metabolic diseases; Z79.899 Other long term (current) drug therapy; Z88.0 Allergy status to penicillin

== ENCOUNTER 2019-11-17 08:01 | Observation (INO) ==
--- NOTE | 2019-10-20 10:30 | PAT Medication Instructions ---
Medication Instructions Date of Service October 20, 2019 Home Medications Medication Instructions Recorded cholecalciferol (vitamin D3) 25 1,000 unit PO HS #90 cap 11/22/18 mcg (1,000 unit) capsule glucosamine sulf dipot 1 cap PO QPM #90 cap 11/22/18 chlr,msm,chond 550 mg-C 30 mg-nancy 1 mg capsule modafinil 100 mg tablet 100 mg PO QAM #90 tab 05/17/19 meclizine 12.5 mg tablet 12.5 mg PO TID PRN #30 tab 09/07/19 duloxetine 60 mg capsule,delayed 60 mg PO QPM #90 cap 09/21/19 release atorvastatin 20 mg tablet 20 mg PO DAILY #90 tab 10/07/19 omega 9-jro-dtn-fish oil [Fish Oil] 1,000 mg PO QAM cholecalciferol (vitamin D3) 25 mcg (1,000 unit) capsule 1,000 unit PO HS glucosamine sulf dipot chlr,msm,chond 550 mg-C 30 mg-nancy 1 mg capsule 1 cap PO QPM modafinil 100 mg tablet 100 mg PO QAM meclizine 12.5 mg tablet 12.5 mg PO TID PRN duloxetine 60 mg capsule,delayed release 60 mg PO QPM atorvastatin 20 mg tablet 20 mg PO DAILY aspirin 325 mg PO Q2D celecoxib [Celebrex] 100 mg PO QAM ASK your surgeon for instructions celecoxib [Celebrex] 100 mg PO QAM ASK your prescriber and surgeon aspirin 325 mg PO Q2D STOP taking 2 weeks before surgery (or as soon as possible if surgery is within 2 weeks) omega 7-fqa-vek-fish oil [Fish Oil] 1,000 mg PO QAM glucosamine sulf dipot chlr,msm,chond 550 mg-C 30 mg-nancy 1 mg capsule 1 cap PO QPM DO NOT take the morning of surgery modafinil 100 mg tablet 100 mg PO QAM Take morning of surgery With a small sip of water, OTHERWISE NOTHING TO EAT OR DRINK AFTER MIDNIGHT: meclizine 12.5 mg tablet 12.5 mg PO TID PRN (if needed) atorvastatin 20 mg tablet 20 mg PO DAILY Take evening before surgery cholecalciferol (vitamin D3) 25 mcg (1,000 unit) capsule 1,000 unit PO HS meclizine 12.5 mg tablet 12.5 mg PO TID PRN (if needed) duloxetine 60 mg capsule,delayed release 60 mg PO QPM Other Notes If you have any questions please call us at [phone] or [phone] or [phone] or [phone]
--- NOTE | 2019-10-25 14:38 | Anesthesiology Consultation ---
Date of Service October 25, 2019 Assessment & Plan (1) Encounter for pre-operative examination: Per assessment on 10/24: Travel screen- Lives in [facility]. Travel to [facility] for doctor appts. No known COVID-19 positive contacts or current COVID-19 related symptoms. Surgeon arranging preop COVID testing. Awaiting results. Chart Review Chart Review: Acceptable Risk for Surgery (pending surgeon-ordered PCP clearance ([facility])) and Patient seen in Pre Admission Testing Teaching & Discussion Pre-Anesthesia Teaching/Discussion Notes: Instructed NPO after midnight before surgery,except medications with 15 cc of water. Medication instructions provided according to the PAT guidelines. History Surgery Operation Date: 11/17/19 10:15 Proposed Procedures p Left Total Hip Arthroplasty - Emil Perez MD Height/Weight Height: 6 ft 3 in Weight: 119.3 kg Allergies Allergy/AdvReac Type Severity Reaction Status Date / Time penicillin V Allergy Unknown rash, skin Verified 10/25/19 14:35 discoloration ether AdvReac Unknown severe N/V Verified 10/25/19 14:35 Medications Home Medications Medication Instructions Recorded Confirmed Last Taken omega 5-grw-cfl-fish oil [Fish Oil] 1,000 mg PO QAM 01/22/18 10/20/19 11/20/18 cholecalciferol (vitamin D3) 25 1,000 unit PO HS #90 cap 11/22/18 10/20/19 11/20/18 mcg (1,000 unit) capsule glucosamine sulf dipot 1 cap PO QPM #90 cap 11/22/18 10/20/19 11/20/18 chlr,msm,chond 550 mg-C 30 mg-nancy 1 mg capsule modafinil 100 mg tablet 100 mg PO QAM #90 tab 05/17/19 10/20/19 Unknown meclizine 12.5 mg tablet 12.5 mg PO TID PRN #30 tab 09/07/19 10/20/19 Unknown duloxetine 60 mg capsule,delayed 60 mg PO QPM #90 cap 09/21/19 10/20/19 Unknown release atorvastatin 20 mg tablet 20 mg PO DAILY #90 tab 10/07/19 10/20/19 Unknown aspirin 325 mg PO Q2D 10/20/19 10/20/19 Unknown celecoxib [Celebrex] 100 mg PO QAM 10/20/19 10/20/19 Unknown Past Medical History Medical History (Updated 10/25/19 @ 15:53 by Kerry Stroud) Arthritis Benign essential tremor hands BPH loc w urin obs/LUTS Cancer bladder s/p surgery (2001), SCC Depression Disc degeneration, lumbar Diverticulosis Hyperlipidemia Lumbar spinal stenosis Mild cognitive impairment Osteoarthritis Paroxysmal atrial fibrillation (2011) single episode (2011), no known recurrence Peripheral neuropathy, idiopathic Sleep apnea borderline, did not need device per retesting results Exercise / Class Metabolic Activity III < 4 Walking/Shop/Light housework Past Family History Family History Father , 91 Coronary heart disease Skin cancer Mother , 70 Coronary heart disease Denies family history of Ovarian cancer Prostate cancer Breast cancer Lung cancer Colorectal cancer Past Surgical History Surgical History H/O cataract extraction R/L History of appendectomy History of biopsy of bladder History of colonoscopy History of cystoscopy History of herniorrhaphy x 3 History of incision and drainage pilonidal cyst History of local excision of skin lesion (07/2019) SCC forearm History of surgery RLE (s/p trauma, no hardware) History of tonsillectomy S/P epidural steroid injection X2 S/P hemorrhoidectomy S/P TURP (06/2017) TURP: 06/30/17: LMA#5 at [facility] Past Anesthesia History No Hx of Anesthesia Complications (except PONV with remote procedures) and No Family Hx of Anesthesia Complications History of PONV No Hx of Motion Sickness and History of PONV (with remote procedures) Social History Smoking Status: Never smoker Do You Dip or Chew Tobacco: No Hx Alcohol Use: Yes Alcohol type: beer alcohol intake frequency: holidays/special occasions only Hx Substance Use: No substance use type: does not use Review of Systems Patient denies chest pain, shortness of breath, dyspnea on exertion, joint pain, reflux, cough, wheezing, palpitations. Physical Exam Vital Signs VITALS BP 115/78 P 60 TEMP 98.1 SP02 94%RA RESP 18 PHYSICAL Full neck and c-spine range of motion. Full TMJ range of motion. TMD 3 finger breaths Mallampati Score 3 Dentition: removable right upper side tooth Lungs: clear throughout to auscultation Cardiac: regular rate and rhythm with rare extra beat, I/ sysolic murmur Spine: normal Carotid arteries: negative bruit Extremities: no edema Testing Laboratory Results 10/25/19 15:26 10/25/19 15: PT 10.2 Seconds (9.0-12.0) 10/25/19 15: INR 1.0 (0.9-1.1) 10/25/19 15: Hemoglobin A1c 5.9 % (4.5-5.6) H 10/25/19 15: Urine Color Dark Yellow 10/25/19 15: Urine Appearance Clear (Clear) 10/25/19 15: Urine pH 5.5 (4.5-7.5) 10/25/19 15: Ur Specific [place] 1.028 (1.000-1.030) 10/25/19 15: Urine Protein Negative (Negative) 10/25/19 15: Urine Glucose (UA) Negative (Negative) 10/25/19 15: Urine Ketones Trace (Negative) H 10/25/19 15: Urine Nitrite Negative (Negative) 10/25/19 15:26 Ur Leukocyte Esterase Negative (Negative) 10/25/19 15: Blood Type A Positive 10/25/19 15: Antibody Screen NEGATIVE 10/25/19 15: Electrocardiogram Date: 09/06/19 SB with occasional PVC's at 59bpm. Otherwise "normal" ECG. Chest X-Ray Date: 09/06/19 FINDINGS: An AP, portable, upright chest radiograph is compared to study dated 06/19/2017. The examination is degraded by portable technique and patient rotation. The heart is top normal for projection. The mediastinal contour is within normal limits. There is bibasilar scarring/atelectasis. No airspace consolidation or large pleural effusion is identified. No pneumothorax is seen. The skeletal structures are osteopenic. The bony thorax is grossly intact. IMPRESSION: No acute cardiopulmonary abnormality.
[2019-10-25 16:35] LABS: Basophils # (auto) 0.04 K/uL (0-0.2); Basophils % (auto) 0.6 %; Eosinophils # (auto) 0.23 K/uL (0-0.5); Eosinophils % (auto) 3.5 %; Hematocrit (blood only) 45.9 % (42-52); Hemoglobin 15.5 g/dL (14.0-18.0); Immature Granulocytes # (auto) 0.01 K/uL (0.00-0.02); Immature Granulocytes % (auto) 0.2 %; Lymphocytes # (auto) 1.86 K/uL (1.2-3.4); Lymphocytes % (auto) 28.6 %; Mean Corpuscular Hemoglobin 30.9 pg (25-34); Mean Corpuscular Hgb Conc 33.8 g/dL (32-36); Mean Corpuscular Volume 91.4 fL (80-100); Mean Platelet Volume 10.6 fL (7.4-10.4); Monocytes # (auto) 0.73 K/uL (0.11-0.59); Monocytes % (auto) 11.2 %; Neutrophils # (auto) 3.63 K/uL (1.4-6.5); Neutrophils % (auto) 55.9 %; Platelet Count 225 K/uL (130-400); RDW Coefficient of Variation 13.3 % (11.5-14.5); RDW Standard Deviation 44.5 fL (36.4-46.3); Red Blood Count 5.02 M/uL (4.7-6.1)
[2019-10-25 16:41] LABS: Appearance Urine Clear (Clear); Bilirubin Urine Negative (Negative); Blood Urine Negative (Negative); Color Urine Dark Yellow; Glucose Urine UA Negative (Negative); Ketones Urine Trace (Negative); Leukocyte Esterase Urine Negative (Negative); Nitrite Urine Negative (Negative); Protein Urine Negative (Negative); Specific Gravity Urine 1.028 (1.000-1.030); Urobilinogen Urine Negative (Negative); pH Urine 5.5 (4.5-7.5)
[2019-10-25 16:46] LABS: Prothrombin Time 10.2 Seconds (9.0-12.0)
[2019-10-25 16:49] LABS: Albumin Level 3.5 gm/dl (3.4-5.0); BUN Creatinine Ratio 28.8 (10-20); Calcium 8.9 mg/dl (8.5-10.1); Creatinine Clr Calc Pharmacy 105.1 ml/min; Est GFR (African American) 98.6; Est GFR (Non-African American) 85.1; Potassium 4.5 mmol/L (3.5-5.1)
[2019-10-25 16:52] LABS: Albumin Globulin Ratio 1.1 (0.9-2); Bilirubin,Total 0.2 mg/dl (0.2-1); Globulin 3.3 gm/dl (2.5-4.0); Total Protein 6.8 gm/dl (6.4-8.2)
[2019-10-26 05:59] LABS: Estimated Average Glucose 123 mg/dl; Hemoglobin A1C 5.9 % (4.5-5.6)
--- NOTE | 2019-10-28 13:14 | History & Physical Report ---
Date of Service October 28, 2019 Assessment & Plan (1) Hip osteoarthritis: PRE-OP Diagnosis: Left hip osteoarthritis Planned Procedure: Left total hip arthroplasty Plan: Patient is scheduled to undergo this procedure at the [facility] [address] Dr. Emil Perez on November 17, 2019. Risks and complications of the procedure such as: Infection, bleeding, pain, scarring, nerve blood vessel damage, weakness, wound problems, stiffness, incomplete relief of symptoms, hardware failure, hardware loosening, wear, fracture, tendon or ligament injury, dislocation, leg length inequality, blood clots, embolism, heart attack, stroke and were explained the patient had at his visit today by Dr. Perez. Informed consent for the procedure was obtained. Patient also understands the risks of proceeding with surgical intervention during the COVID-19 pandemic. Currently patient is asymptomatic and understands that he will be tested for COVID prior to the procedure. We will need to obtained preoperative medical clearance medications primary care provider Dr. Noyola. We will obtain a CBC with differential, complete metabolic panel, PT/INR, blood type and screen, urinalysis, urine culture, EKG, hemoglobin A1c, and a nasal culture for MRSA. Patient states he will obtain this testing prior to his preanesthesia appointment at the hospital this afternoon. During today's visit the patient and I discussed total hip precautions. We went over the total hip packet. We talked about discharge planning. Patient and I discussed antibiotic use after total joint replacement surgery. I advised him that the [facility] provides lectures via zoom in regards to joint placement surgery. Patient states that he already has a handicap placard for his vehicle that is permanent. Patient states that he has a walker that he will bring with him on the day of his procedure. I advised him to purchase a hip kit from either [employer] or [email or web address]. We discussed abduction pillow use for 6 weeks postoperatively. I advised him that he will be discharged with a prescription for narcotic pain medication, and an anti-inflammatory, and we discussed the use of extra strength Tylenol and aspirin for DVT prophylaxis. Patient states he would like to be discharged home if he does well with therapy, and will prefer to have in-home therapy for the first 2 weeks postoperatively. Patient is scheduled for 2-week postoperative follow-up with myself on December 02, 2019 at 1:30 PM. At that appointment we will discuss outpatient physical therapy and provide him with rehab protocol. Patient verbalized understanding of all information provided during today's visit. He thanked us for the care that he received. Patient states if he has questions or concerns prior to the procedure, he will contact clinic. History of Present Illness Chief Complaint: Left Hip Pain Primary Care Provider: Katy Noyola DO History of Present Illness (including history relevant to procedure): 69-year-old male presents clinic today for his preoperative history and physical examination. He has had pain for about 4 years. Pain is progressively worsening. Pain is located in the groin. It is nonradiating. His back does bother him and he sees Dr. Tripathi for this. It does seem that when his hip is bothering him, his back also bothers him. He has undergone extensive conservative management including 2 episodes of physical therapy, which only made it worse. He has had prednisone, which has not helped. Just recently started Celebrex and has tried other [id number] medications. He had an injection by Dr. Lugo into his hip joint on July 21, 2019, that did not give any relief. He enjoys walking, hunting, and fishing. He has been using a cane for the last several months, which has not helped that much. Past Medical History: Problems: Osteoarthritis of left hip DJD (degenerative joint disease), ankle and foot Preop examination Left lumbar radiculopathy Lumbar spinal stenosis Low back pain Bilateral primary osteoarthritis of hip Bilateral hip pain ANKLE - FOOT PAIN Sleep apnea ANKLE FRACTURE CA - Bladder cancer OA - Osteoarthritis Anxiety/depression Procedure History Procedure Procedure Date Comments Abdominal hernia - 3x Appendectomy Leg - surgery x3 Right lower leg Allergies and Sensitivities: penicillins(Shortness of breath) penicillins(Pharyngeal swelling) Social history: Completely negative Family history: Coronary artery disease Current Home Meds: (Last Updated 10/24 13:37) (DULoxetine 60 mg oral delayed release capsule) 60 mg PO Daily(Lipitor)(CeleBREX 100 mg oral capsule) 100 mg PO Daily contents of capsule may be mixed with soft foods such as applesauce(modafinil 100 mg oral tablet) 100 mg PO qAM(traMADol 50 mg oral tablet) 50 mg PO q4h PRN: as needed for pain not to exceed 400 mg/day Initial Wt: 10/24 119.5 kg 263 lb Allergies Allergy/AdvReac Type Severity Reaction Status Date / Time penicillin V Allergy Unknown rash, skin Verified 10/25/19 14:35 discoloration ether AdvReac Unknown severe N/V Verified 10/25/19 14:35 Home Medications Home Medications Medication Instructions Recorded Confirmed Type omega 0-hbq-kfm-fish oil [Fish Oil] 1,000 mg PO QAM 01/22/18 10/20/19 History cholecalciferol (vitamin D3) 25 1,000 unit PO HS #90 cap 11/22/18 10/20/19 Rx mcg (1,000 unit) capsule glucosamine sulf dipot 1 cap PO QPM #90 cap 11/22/18 10/20/19 Rx chlr,msm,chond 550 mg-C 30 mg-nancy 1 mg capsule modafinil 100 mg tablet 100 mg PO QAM #90 tab 05/17/19 10/20/19 Rx meclizine 12.5 mg tablet 12.5 mg PO TID PRN #30 tab 09/07/19 10/20/19 Rx duloxetine 60 mg capsule,delayed 60 mg PO QPM #90 cap 09/21/19 10/20/19 Rx release atorvastatin 20 mg tablet 20 mg PO DAILY #90 tab 10/07/19 10/20/19 Rx aspirin 325 mg PO Q2D 10/20/19 10/20/19 History celecoxib [Celebrex] 100 mg PO QAM 10/20/19 10/20/19 History Past Med/Surg History Medical History Arthritis Benign essential tremor hands BPH loc w urin obs/LUTS Cancer bladder s/p surgery (2001), SCC Depression Disc degeneration, lumbar Diverticulosis Hyperlipidemia Lumbar spinal stenosis Mild cognitive impairment Osteoarthritis Paroxysmal atrial fibrillation (2011) single episode (2011), no known recurrence Peripheral neuropathy, idiopathic Sleep apnea borderline, did not need device per retesting results Surgical History H/O cataract extraction R/L History of appendectomy History of biopsy of bladder History of colonoscopy History of cystoscopy History of herniorrhaphy x 3 History of incision and drainage pilonidal cyst History of local excision of skin lesion (07/2019) SCC forearm History of surgery RLE (s/p trauma, no hardware) History of tonsillectomy S/P epidural steroid injection X2 S/P hemorrhoidectomy S/P TURP (06/2017) TURP: 06/30/17: LMA#5 at [facility] Family History Father , 91 Coronary heart disease Skin cancer Mother , 70 Coronary heart disease Denies family history of Ovarian cancer Prostate cancer Breast cancer Lung cancer Colorectal cancer Social History Smoking Status: Never smoker Second Hand Exposure: Yes ( A CHILD); Hx Alcohol Use: Yes Alcohol type: beer Alcohol Intake Frequency: Monthly or Less Hx Substance Use: No Preferred Language: Chinese Communication Ability: Effective Visual Impairment: No Limitations Hearing Ability: Normal Inspector Required: No Beliefs That Will Affect Care: None marital status: Current Living Situation: Spouse and Family current occupational status: retired current occupation: Development Scientist, HS Feels Safe at Home: Yes Childhood Exposure to Second-Hand Smoke: No caffeine: Yes Dental Care, Regularly: Yes Physical Activity Frequency: 3-4 Times per Week Physical Activity Frequency Comment: walking Seatbelt Use: always Sunscreen Use: Yes Review of Systems All systems reviewed & are unremarkable except as noted in Subjective Physical Exam Physical Exam: Physical Exam: (relevant to the procedure, including heart and lung evaluation) General: Alert and oriented x3 with proper grooming and hygiene Eyes: Pupils are equal and react to light with accommodation. Extraocular movements are intact Throat: Deferred due to COVID 19 precautions Cardiac: Regular rate and rhythm with no murmurs or gallops appreciated Lungs: Clear to auscultation throughout with no wheezing, rales or rhonchi Abdomen: Obese, nondistended, nontender with normal active bowel sounds Extremities: Left hip exam in the seated position reveals the patient to have pain with flexion past 110 degrees. External rotation is limited to 30 degrees and internal rotation to 10 degrees. He has palpable dorsalis pedis and posterior tibial pulses. Sensory intact to light touch distally. Neuro: Cranial nerves II through XII are intact with no motor or sensory deficit Skin: Normal in appearance with no open skin areas or discharge Results & Data ([facility]) Laboratory Results Lab Results 10/25/19 10/25/19 10/25/19 Range/Units 15:26 15:26 15:26 WBC 6.50 (4.8-10.8) K/uL RBC 5.02 (4.7-6.1) M/uL Hgb 15.5 (14.0-18.0) g/dL Hct 45.9 (42-52) % MCV 91.4 (80-100) fL MCH 30.9 (25-34) pg MCHC 33.8 (32-36) g/dL RDW Std Deviation 44.5 (36.4-46.3) fL RDW Coeff of Margarette 13.3 (11.5-14.5) % Plt Count 225 (130-400) K/uL MPV 10.6 H (7.4-10.4) fL Immature Gran % (Auto) 0.2 % Neut % (Auto) 55.9 % Lymph % (Auto) 28.6 % Meriwether % (Auto) 11.2 % Eos % (Auto) 3.5 % Baso % (Auto) 0.6 % Neut # (Auto) 3.63 (1.4-6.5) K/uL Lymph # (Auto) 1.86 (1.2-3.4) K/uL Meriwether # (Auto) 0.73 H (0.11-0.59) K/uL Eos # (Auto) 0.23 (0-0.5) K/uL Baso # (Auto) 0.04 (0-0.2) K/uL Immature Gran # (Auto) 0.01 (0.00-0.02) K/uL PT 10.2 (9.0-12.0) Seconds INR 1.0 (0.9-1.1) Sodium (136-145) mmol/L Potassium (3.5-5.1) mmol/L Chloride (98-107) mmol/L Carbon Dioxide (21-32) mmol/L Anion Gap (3-11) BUN (7-18) mg/dl Creatinine (0.6-1.4) mg/dl Est Cr Clr Drug Dosing ml/min Est GFR ( Amer) Est GFR (Non-Af Amer) BUN/Creatinine Ratio (10-20) Glucose (70-99) mg/dl Estimat Average Glucose mg/dl Hemoglobin A1c (4.5-5.6) % Calcium (8.5-10.1) mg/dl Total Bilirubin (0.2-1) mg/dl AST (15-37) U/L ALT (12-78) U/L Alkaline Phosphatase (45-117) U/L Total Protein (6.4-8.2) gm/dl Albumin (3.4-5.0) gm/dl Globulin (2.5-4.0) gm/dl Albumin/Globulin Ratio (0.9-2) Urine Color Urine Appearance (Clear) Urine pH (4.5-7.5) Ur Specific Canby (1.000-1.030) Urine Protein (Negative) Urine Glucose (UA) (Negative) Urine Ketones (Negative) Urine Blood (Negative) Urine Nitrite (Negative) Urine Bilirubin (Negative) Urine Urobilinogen (Negative) Ur Leukocyte Esterase (Negative) Nasal Screen MRSA (PCR) (Negative) Blood Type A Positive Antibody Screen NEGATIVE 10/25/19 10/25/19 10/25/19 Range/Units 15:26 15:26 15:26 WBC (4.8-10.8) K/uL RBC (4.7-6.1) M/uL Hgb (14.0-18.0) g/dL Hct (42-52) % MCV (80-100) fL MCH (25-34) pg MCHC (32-36) g/dL RDW Std Deviation (36.4-46.3) fL RDW Coeff of Margarette (11.5-14.5) % Plt Count (130-400) K/uL MPV (7.4-10.4) fL Immature Gran % (Auto) % Neut % (Auto) % Lymph % (Auto) % Meriwether % (Auto) % Eos % (Auto) % Baso % (Auto) % Neut # (Auto) (1.4-6.5) K/uL Lymph # (Auto) (1.2-3.4) K/uL Meriwether # (Auto) (0.11-0.59) K/uL Eos # (Auto) (0-0.5) K/uL Baso # (Auto) (0-0.2) K/uL Immature Gran # (Auto) (0.00-0.02) K/uL PT (9.0-12.0) Seconds INR (0.9-1.1) Sodium 142 (136-145) mmol/L Potassium 4.5 (3.5-5.1) mmol/L Chloride 110 H (98-107) mmol/L Carbon Dioxide 28 (21-32) mmol/L Anion Gap 4.0 (3-11) BUN 26 H (7-18) mg/dl Creatinine 0.91 (0.6-1.4) mg/dl Est Cr Clr Drug Dosing 105.1 ml/min Est GFR ( Amer) 98.6 Est GFR (Non-Af Amer) 85.1 BUN/Creatinine Ratio 28.8 H (10-20) Glucose 88 (70-99) mg/dl Estimat Average Glucose 123 mg/dl Hemoglobin A1c 5.9 H (4.5-5.6) % Calcium 8.9 (8.5-10.1) mg/dl Total Bilirubin 0.2 (0.2-1) mg/dl AST 25 (15-37) U/L ALT 46 (12-78) U/L Alkaline Phosphatase 68 (45-117) U/L Total Protein 6.8 (6.4-8.2) gm/dl Albumin 3.5 (3.4-5.0) gm/dl Globulin 3.3 (2.5-4.0) gm/dl Albumin/Globulin Ratio 1.1 (0.9-2) Urine Color Dark Yellow Urine Appearance Clear (Clear) Urine pH 5.5 (4.5-7.5) Ur Specific [place] 1.028 (1.000-1.030) Urine Protein Negative (Negative) Urine Glucose (UA) Negative (Negative) Urine Ketones Trace H (Negative) Urine Blood Negative (Negative) Urine Nitrite Negative (Negative) Urine Bilirubin Negative (Negative) Urine Urobilinogen Negative (Negative) Ur Leukocyte Esterase Negative (Negative) Nasal Screen MRSA (PCR) (Negative) Blood Type Antibody Screen 10/25/19 Range/Units 15:26 WBC (4.8-10.8) K/uL RBC (4.7-6.1) M/uL Hgb (14.0-18.0) g/dL Hct (42-52) % MCV (80-100) fL MCH (25-34) pg MCHC (32-36) g/dL RDW Std Deviation (36.4-46.3) fL RDW Coeff of Margarette (11.5-14.5) % Plt Count (130-400) K/uL MPV (7.4-10.4) fL Immature Gran % (Auto) % Neut % (Auto) % Lymph % (Auto) % Meriwether % (Auto) % Eos % (Auto) % Baso % (Auto) % Neut # (Auto) (1.4-6.5) K/uL Lymph # (Auto) (1.2-3.4) K/uL Meriwether # (Auto) (0.11-0.59) K/uL Eos # (Auto) (0-0.5) K/uL Baso # (Auto) (0-0.2) K/uL Immature Gran # (Auto) (0.00-0.02) K/uL PT (9.0-12.0) Seconds INR (0.9-1.1) Sodium (136-145) mmol/L Potassium (3.5-5.1) mmol/L Chloride (98-107) mmol/L Carbon Dioxide (21-32) mmol/L Anion Gap (3-11) BUN (7-18) mg/dl Creatinine (0.6-1.4) mg/dl Est Cr Clr Drug Dosing ml/min Est GFR ( Amer) Est GFR (Non-Af Amer) BUN/Creatinine Ratio (10-20) Glucose (70-99) mg/dl Estimat Average Glucose mg/dl Hemoglobin A1c (4.5-5.6) % Calcium (8.5-10.1) mg/dl Total Bilirubin (0.2-1) mg/dl AST (15-37) U/L ALT (12-78) U/L Alkaline Phosphatase (45-117) U/L Total Protein (6.4-8.2) gm/dl Albumin (3.4-5.0) gm/dl Globulin (2.5-4.0) gm/dl Albumin/Globulin Ratio (0.9-2) Urine Color Urine Appearance (Clear) Urine pH (4.5-7.5) Ur Specific [place] (1.000-1.030) Urine Protein (Negative) Urine Glucose (UA) (Negative) Urine Ketones (Negative) Urine Blood (Negative) Urine Nitrite (Negative) Urine Bilirubin (Negative) Urine Urobilinogen (Negative) Ur Leukocyte Esterase (Negative) Nasal Screen MRSA (PCR) Negative (Negative) Blood Type Antibody Screen Diagnostic Findings Studies (relevant to the procedure): Recent hip x-rays are reviewed. He has [id number] arthritis in the left hip, which has been progressive in nature compared with his previous films done in the past. Subchondral sclerosis and small cyst formation are also noted.
[~2019-11-17 08:01] MED LIST changes: +ACETAMINOPHEN 500 MG TAB PO SCH; -ATOR10TA82 PO; +BUPIVACAINE 0.5 % 5 MG/1 ML PF 10ML VIAL ONE; -BUPR-79 PO; -CHOL1000 PO; -CIPROFLOXACIN / D5W 400 MG IV SCH; +CLINDAMYCIN 900 MG in DEXTROSE 5% 50 ML IV SCH; -COEN100C7 PO; +CeleBREX 200 MG CAP PO SCH; +FAMOTIDINE 20 MG TAB PO SCH; -FLM4 PO; -GLUCTAB7 PO; -LACTATED RINGER'S 1000ML 1,000 ML IV SCH; +LR 500ML BOLUS, THEN 15ML/HR IV SCH; +LR 60ML/HR IV SCH; +METOCLOPRAMIDE HCL 10 MG TABLET PO SCH; -MULT-506 PO; -NAPR1TAB9 PO; -OMEG10007 PO; +TRAMADOL HCL 50 MG TABLET PO SCH; +TRANEXAMIC ACID 1,000 MG **IV Intra-op IV SCH; +TRANEXAMIC ACID 1,000 MG **IV Pre-op IV SCH; -VORT10TA12 PO; +dexAMETHasone 4 MG TAB PO SCH
[2019-11-17] MEDS ORDERED: fentaNYL citrate 100 MCG/2 ML VIAL ONE (09:03)
[2019-11-17] MEDS ORDERED: MIDAZOLAM HCL 1 MG/ML 2ML VIAL ONE ×2 (09:03→09:04)
[2019-11-17] MEDS ORDERED: HYDROmorphone INJ 1 MG/ML SYRINGE IV PRN (10:05)
[2019-11-17] MEDS ORDERED: ATROPINE SULFATE 0.1 MG/ML 10ML SYR IV PRN (10:05)
[2019-11-17] MEDS ORDERED: KETOROLAC 30 MG/ML VIAL IV PRN (10:05)
[2019-11-17] MEDS ORDERED: ePHEDrine sulfate 50 MG/ML AMP IV PRN (10:05)
[2019-11-17] MEDS ORDERED: ONDANSETRON INJ 2 MG/ML 2 ML VIAL IV PRN ×2 (10:05→13:10)
--- NOTE | 2019-11-17 10:27 | History & Physical Bridge Note ---
Date of Service November 17, 2019 History & Physical Bridge Note I have examined the patient, reviewed the History & Physical and in the interval since the performance of the History & Physical I have noted the following changes of clinical significance: no changes noted
[2019-11-17] MEDS ORDERED: ORTHO JOINT ANESTHETIC ONE (10:40)
[2019-11-17] MEDS ORDERED: LIDOCAINE HCL 2% 2 ML VIAL/AMP(20MG/ML) INFIL ONE (12:03)
[2019-11-17] MEDS ORDERED: PROPOFOL IV EMULSION 10 MG/ML 20 ML VIAL IV ONE (12:03)
[2019-11-17] MEDS ORDERED: ePHEDrine sulfate 50 MG/ML SYR ONE (12:04)
[2019-11-17] MEDS ORDERED: PHENYLEPHRINE 100MCG/ML 5ML SYR ONE (12:04)
[2019-11-17] MEDS ORDERED: DEXAMETHASONE SOD INJ 4 MG/ML VIAL ONE ×2 (12:04)
[2019-11-17] MEDS ORDERED: ONDANSETRON INJ 2 MG/ML 2 ML VIAL ONE (12:04)
--- NOTE | 2019-11-17 12:33 | Anesthesiology Progress Note ---
Date of Service November 17, 2019 Anesthesia Post Procedure Vital Signs Vital Signs: Temp Pulse Resp BP Pulse Ox 11/17/19 09:42 36.6 C 57 L 20 120/78 96 11/17/19 08:15 36.6 C 67 18 130/84 95 Pain Intensity Left Hip: Pain Intensity: 2 Transfer of Care Handoff Completed per policy Notes Mental Status: alert / awake / arousable Patient Amnestic to Procedure: Yes Nausea / Vomiting: adequately controlled Pain: adequately controlled Airway Patency, RR, SpO2: stable & adequate BP & HR: stable & adequate Hydration State: stable & adequate Neuraxial Anesthesia: was administered and sensory block is resolving Anesthetic Complications: no major complications apparent
[2019-11-17] MEDS: ROPIVACAINE 0.5% HCL/PF 150 MG, BUPIVACAINE 0.5% MPF 30 ML, EPINEPHrine 0.15 MG, Ketoro... INFIL SCH (12:38)
--- NOTE | 2019-11-17 12:54 | Post Operative Brief Note ---
Immediate Post Op Note v1 Date of Surgery November 17, 2019 Pre & Post Diagnosis Operation Date: 11/17/19 10:15 Pre-Op Diagnosis: Left Hip Arthritis Post-Op Diagnosis: Left Hip Arthritis I identified the patient and participated in the time-out.: Yes Procedure Operation Date: 11/17/19 10:15 Actual Procedures p Left Total Hip Arthroplasty(Left) - Emil Perez MD Surgeon Emil Perez MD Preflight Mechanic MILI Trimble PA-C and óMnica Pires MD Estimated Blood Loss 100 Findings Consistent with Post-Op Diagnosis Fluids 1500 cc Anesthesia Type Spinal MAC Complications none Disposition Accompanied Patient To Recovery: No Disposition: Recovery Room
[2019-11-17] MEDS ORDERED: bisacodyL 10 MG SUPP PR PRN (13:10)
[2019-11-17] MEDS ORDERED: ALUMINUM/MAGNESIUM SUSP 30 ML UDC PO PRN (13:10)
[2019-11-17] MEDS ORDERED: TAMSULOSIN HCL 0.4 MG CAP PO PRN (13:10)
[2019-11-17] MEDS ORDERED: NALOXONE HCL 0.4 MG/1 ML VIAL/CARP IV PRN (13:10)
[2019-11-17] MEDS ORDERED: DiphenhydrAMINE HCL 50 MG/ML VIAL IV PRN (13:10)
[2019-11-17] MEDS ORDERED: MAGNESIUM HYDROXIDE SUSP 30 ML UDC PO PRN (13:10)
[2019-11-17] MEDS ORDERED: METOCLOPRAMIDE HCL INJ 5 MG/ML 2 ML VIAL IV PRN (13:10)
--- NOTE | 2019-11-17 13:10 | Operative Report ---
Post Operative Report Pre & Post Diagnosis Operation Date: 11/17/19 10:15 Pre-Op Diagnosis: Left Hip Arthritis Post-Op Diagnosis: Left Hip Arthritis I identified the patient and participated in the time-out.: Yes Procedure Operation Date: 11/17/19 10:15 Actual Procedures p Left Total Hip Arthroplasty(Left) - Emil Perez MD Surgeon Emil Perez MD Marketing Developer MILI Trimble PA-C and Mónica Pires MD Estimated Blood Loss 100 Findings Consistent with Post-Op Diagnosis Specimens femoral head Complications none Disposition Accompanied Patient To Recovery: Yes Disposition: Recovery Room Description of Procedure I was present during the entire case assisting with positioning, prepping, draping, retraction, wound closure, dressing and abduction pillow placement. Fellow was also present. I served as an extra set of hands during the procedure. Please see Dr. Perez procedure note for specifics of the case. I attest to the content of the Intraoperative Record and any orders documented therein. Any exceptions are noted below.
[2019-11-17] MEDS ORDERED: MECLIZINE 12.5 MG TAB PO PRN (13:13)
--- NOTE | 2019-11-17 13:36 | XRay Report ---
AP PELVIS, CROSSTABLE LATERAL LEFT HIP History: Left total hip arthroplasty. Degenerative arthritis. Postop. FINDINGS: The patient is status post a left total hip arthroplasty. The hardware is intact. No fractu re or dislocation. IMPRESSION: Left total hip arthroplasty. No evidence for hardware complication. ACT 112: Negative or not required by law. Electronically signed by: Abraahm Sung M.D. 11/17/2019 1:35 PM
--- NOTE | 2019-11-17 13:36 | Anesthesiology Progress Note ---
Date of Service November 17, 2019 Anesthesia Post Procedure Vital Signs Vital Signs: Temp Pulse Pulse Resp BP BP Pulse Ox 11/17/19 13:25 76 14 102/70 98 11/17/19 13:15 68 14 106/66 97 11/17/19 13:06 36.4 C L 75 14 103/70 97 11/17/19 09:42 36.6 C 57 L 20 120/78 96 11/17/19 08:15 36.6 C 67 18 130/84 95 Pain Intensity Left Hip: Pain Intensity: 2 Transfer of Care Handoff Completed per policy Notes Mental Status: alert / awake / arousable Patient Amnestic to Procedure: Yes Nausea / Vomiting: adequately controlled Pain: adequately controlled Airway Patency, RR, SpO2: stable & adequate BP & HR: stable & adequate Hydration State: stable & adequate Neuraxial Anesthesia: was administered and sensory block is resolving Anesthetic Complications: no major complications apparent
--- NOTE | 2019-11-17 14:08 | Operative Report (OR) ---
DATE OF OPERATION: 11/17/2019 PREOPERATIVE DIAGNOSIS: Left hip osteoarthritis. POSTOPERATIVE DIAGNOSIS: Left hip osteoarthritis. OPERATIONS PERFORMED: Left total hip arthroplasty. SURGEON: Emil Perez MD. CHIEF NURSE EXECUTIVE: Mónica Pires MD, and Dario Trimble PA-C. ESTIMATED BLOOD LOSS: 100 mL. INTRAVENOUS FLUIDS: 1500 mL crystalloid. SPECIMENS: Femoral head. COMPLICATIONS: None. IMPLANTS: 1. DePuy [place] size 6 high-offset femoral stem. 2. DePuy [place] Gription acetabular shell sector cup. 3. [place] cancellous bone screw 6.5 mm x 40 mm. 4. [place] Ultrex polyethylene liner with a +4 offset neutral face 36 mm inner diameter and 60 mm outer diameter. 5. Biolox delta ceramic femoral head with a +12 offset, 36 mm diameter. INDICATIONS: The patient is a 69-year-old gentleman who has had left hip pain that has been refractory to conservative management. X-rays demonstrate bone on bone arthritis. I had a long discussion with him about the risks and benefits of surgery, alternatives to surgery, and expected outcomes. After reviewing all these, he elected to proceed with surgery. All questions were answered. Informed consent was signed. OPERATIVE FINDINGS: Total hip arthroplasty was performed using a ceramic on polyethylene bearing surface through a posterior approach. The patient had a significant offsets, we used a +4 liner on the acetabular side and a +12 femoral head to recreate his offset. DESCRIPTION OF THE OPERATION: The patient was identified in the preoperative holding area where surgical site was marked. He was given a spinal anesthetic and brought back to main operating room where he was placed on the operating room table and moved in lateral decubitus position. Axillary roll was placed. All bony prominences were padded. Perioperative antibiotics and tranexamic acid were administered intravenously. He was then prepped and draped in normal sterile fashion. Prior to incision, a multidisciplinary timeout was called. All in the room were in agreement. We began by making a 14 cm long incision for a posterior approach to the hip. We dissected down through subcutaneous tissues to the level of fascia. The fascia was incised in line with the incision. A Charnley bow was placed. The trochanteric bursa was reflected posteriorly off the short external rotators. The interval between the piriformis and gluteus minimus was identified and retractor was placed over the superior aspect of the hip in this interval. The piriformis and short external rotators were dissected off the posterior aspect of the capsule. A box cut was made in the capsule. Femoral head was dislocated. The offset measurement from the lesser trochanter to the center of the femoral head was measured at 68 mm, which was an extremely large offset. We then made our femoral neck osteotomy at 12 mm, which was our preoperative template. We then exposed the acetabulum. The labrum was sharply excised. The contents of the cotyloid fossa removed with electrocautery. We then began reaming. We reamed them all the way up to a size 60 acetabular cup. This gave us good bleeding cancellous bone circumferentially. The acetabulum was irrigated out and then the size 60 [place] Gription sector cup was impacted down into position with 40 degrees of lateral opening and 25 degrees of anteversion. A single cancellous screw was placed up into the ilium. Excellent fixation was obtained. At this point, a neutral trial liner was placed. We then exposed the femur. The intramedullary guide was used followed by the lateralizing reamer. We then reamed him up to a size 6, which was quite tight. We were not able to ream to the 7 at all. We then began broaching him. We got all the way up to the size 6 broach, a 7 broach would not fit. The size 6 broach was tight when it was impacted just below the femoral neck cut by about 2 mm. Given that the actual prosthesis has a 0.5 mm press fit above and beyond this, I elected to go with a size 6 as opposed to trying to ream up to a size 7 and risk of fracturing the femur. We then began to trial. A high offset neck was used as well as a +8.5 head. The hip was reduced. His leg lengths were still just a little bit short. Therefore, we dislocated the hip and removed the femoral trial. We removed the acetabular polyethylene trial and opened up the +4 liner, which would give us increased leg lengths as well as increase his offset. Once this was completed, the femur was re-exposed. The femoral canal was irrigated out and dried. We then opened up the size 6 high-offset [place] femoral stem. This was impacted down into position. It sat at approximately the same level of the broach. We then placed the +12 offset trial head. The offset measurement from the center of the femoral head to the lesser trochanter was now at 68 mm reproducing his walker river offset. We then atraumatically reduced the hip. He had an excellent shuck test. He was stable in the sleeper position. There was no impingement in external rotation and extension and 90 degrees of hip flexion, he could be internally rotated to 55 degrees before beginning to liver out of the cup. We were very happy with the stability exam. Next, the femoral head trial was removed and the trunnion was cleaned and dried. The real size 36 mm diameter ceramic femoral head with a +12 offset was opened up and was gently impacted down onto the trunnion. The hip was atraumatically reduced. The wound was soaked in sterile Betadine solution for 3 minutes. We then injected our periarticular cocktail and began to close. The piriformis and short external rotators as well as posterior capsular flap were repaired through bone tunnels in the greater trochanter. This was with #2 Vicryl suture. The fascia was run with a looped #1 PDS. The subcutaneous layer was closed with a running #1 PDS. The dermal layer was closed with a running #2 Vicryl. The skin was closed with a ZipLine dressing. A Silverlon was placed followed by a compressive dressing. The patient's sedation was lifted and he was transferred to recovery room in stable condition. POSTOPERATIVE COURSE: The patient will be admitted to the floor postoperatively for pain control and monitoring. He will be discharged home tomorrow after passing physical therapy. Aspirin for DVT prophylaxis. I attest to the content of the Intraoperative Record and any orders documented therein. Any exception s are noted below.
[2019-11-17] MEDS: SODIUM CHLORIDE 0.9% 1000ML 1,000 ML IV SCH (14:27)
[2019-11-17] MEDS: KETOROLAC TROMETHAMINE 15 MG/ML VIAL IV SCH ×2 (15:35→21:56)
[2019-11-17] MEDS: ACETAMINOPHEN 500 MG TAB PO SCH ×2 (15:36→21:56)
[2019-11-17] MEDS: Scopolamine CHECK PATCH PLACEMENT SCH (15:41)
[2019-11-17] MEDS: CLINDAMYCIN 600 MG in DEXTROSE 5% 50 ML IV SCH (18:05)
[2019-11-17] MEDS ORDERED: TRANEXAMIC ACID / 0.7% NACL 1,000 MG/100 ML BAG IV SCH (19:30)
[2019-11-17] MEDS: ASPIRIN 81 MG ECTAB PO SCH (20:29)
[2019-11-17] MEDS: DOCUSATE SODIUM 100 MG CAP PO SCH (20:29)
[2019-11-17] MEDS ORDERED: CHOLECALCIFEROL 1,000 UNITS 25 MCG TAB PO SCH (21:00)
[2019-11-17] MEDS ORDERED: SENNA 8.6 MG TAB PO SCH (21:00)
[2019-11-17] MEDS ORDERED: DULOXETINE HCL 60 MG CAP PO SCH (21:00)
[2019-11-17] MEDS ORDERED: NON-FORMULARY MEDICATION (Glucos Sul 2kcl-Msm-Chond-C-Mn [Glucosamine Chondroitin] 1 CAP) PO SCH (21:00)
[2019-11-17] MEDS: OXYCODONE HCL IR 5 MG TAB (IMMEDIATE RELEASE) PO PRN (22:00)
[2019-11-18] MEDS: SODIUM CHLORIDE 0.9% 1000ML 1,000 ML IV SCH (00:50)
[2019-11-18] MEDS: Scopolamine CHECK PATCH PLACEMENT SCH ×2 (00:51→07:21)
[2019-11-18] MEDS: KETOROLAC TROMETHAMINE 15 MG/ML VIAL IV SCH ×2 (03:32→09:53)
[2019-11-18] MEDS: CLINDAMYCIN 600 MG in DEXTROSE 5% 50 ML IV SCH (03:32)
[2019-11-18] MEDS: OXYCODONE HCL IR 5 MG TAB (IMMEDIATE RELEASE) PO PRN (03:49)
[2019-11-18] MEDS: ACETAMINOPHEN 500 MG TAB PO SCH (05:31)
[2019-11-18 05:44] LABS: Basophils # (auto) 0.01 K/uL (0-0.2); Basophils % (auto) 0.1 %; Hematocrit (blood only) 41.7 % (42-52); Hemoglobin 14.1 g/dL (14.0-18.0); Immature Granulocytes # (auto) 0.02 K/uL (0.00-0.02); Immature Granulocytes % (auto) 0.1 %; Lymphocytes # (auto) 1.01 K/uL (1.2-3.4); Lymphocytes % (auto) 7.2 %; Mean Corpuscular Hgb Conc 33.8 g/dL (32-36); Mean Corpuscular Volume 91.6 fL (80-100); Mean Platelet Volume 10.5 fL (7.4-10.4); Monocytes # (auto) 1.31 K/uL (0.11-0.59); Monocytes % (auto) 9.3 %; Neutrophils # (auto) 11.72 K/uL (1.4-6.5); Neutrophils % (auto) 83.3 %; Platelet Count 207 K/uL (130-400); RDW Coefficient of Variation 13.1 % (11.5-14.5); RDW Standard Deviation 43.7 fL (36.4-46.3); Red Blood Count 4.55 M/uL (4.7-6.1); White Blood Count 14.07 K/uL (4.8-10.8)
[2019-11-18 06:18] LABS: BUN Creatinine Ratio 25.6 (10-20); Calcium 8.5 mg/dl (8.5-10.1); Creatinine Clr Calc Pharmacy 101.9 ml/min; Est GFR (African American) 96.6; Est GFR (Non-African American) 83.4; Potassium 3.8 mmol/L (3.5-5.1)
[2019-11-18] MEDS: ROPIVACAINE 0.5% HCL/PF 150 MG, BUPIVACAINE 0.5% MPF 30 ML, EPINEPHrine 0.15 MG, Ketoro... INFIL SCH (07:21)
[2019-11-18] MEDS ORDERED: dexAMETHasone 4 MG TAB PO SCH (08:00)
[2019-11-18] MEDS: DOCUSATE SODIUM 100 MG CAP PO SCH (08:32)
[2019-11-18] MEDS: ASPIRIN 81 MG ECTAB PO SCH (08:32)
--- NOTE | 2019-11-18 08:56 | Anesthesiology Progress Note ---
Date of Service November 18, 2019 Anesthesia Post Procedure Vital Signs Vital Signs: Temp Pulse Pulse Resp BP BP Pulse Ox 11/18/19 07:16 36.4 C L 50 L 16 107/66 98 11/18/19 03:37 36.6 C 46 L 16 114/67 96 11/17/19 23:02 36.4 C L 51 L 16 105/68 96 11/17/19 20:08 36.5 C 66 18 105/67 95 11/17/19 16:23 36.3 C L 58 L 18 110/70 94 11/17/19 15:12 36.4 C L 67 16 118/75 93 11/17/19 14:43 36.4 C L 62 18 102/65 94 11/17/19 14:15 36.5 C 87 16 111/72 97 11/17/19 13:55 67 16 110/68 96 11/17/19 13:45 75 14 107/66 96 11/17/19 13:35 36.6 C 79 14 109/77 97 11/17/19 13:25 76 14 102/70 98 11/17/19 13:15 68 14 106/66 97 11/17/19 13:06 36.4 C L 75 14 103/70 97 11/17/19 09:42 36.6 C 57 L 20 120/78 96 Notes Mental Status: alert / awake / arousable Nausea / Vomiting: adequately controlled Pain: adequately controlled Airway Patency, RR, SpO2: stable & adequate BP & HR: stable & adequate Hydration State: stable & adequate Neuraxial Anesthesia: was administered and sensory block resolved Anesthetic Complications: no major complications apparent and Pt Satisfied with anesthetic care
[2019-11-18] MEDS ORDERED: modafiniL 100 MG TAB PO SCH (09:00)
[2019-11-18] MEDS ORDERED: MULTIVITAMIN TAB PO SCH (09:00)
[2019-11-18] MEDS ORDERED: ATORVASTATIN 20 MG TAB PO SCH (09:00)
[2019-11-18] MEDS ORDERED: OMEGA-3 (PURIFIED FISH OIL) 1 GM CAP PO SCH (09:00)
--- NOTE | 2019-11-18 11:45 | Discharge Summary ---
Date of Service November 18, 2019 Admission HPI Per Admitting Provider History of Present Illness (including history relevant to procedure): 69-year-old male presents clinic today for his preoperative history and physical examination. He has had pain for about 4 years. Pain is progressively worsening. Pain is located in the groin. It is nonradiating. His back does bother him and he sees Dr. Tripathi for this. It does seem that when his hip is bothering him, his back also bothers him. He has undergone extensive conservative management including 2 episodes of physical therapy, which only made it worse. He has had prednisone, which has not helped. Just recently started Celebrex and has tried other dmny-smg-vkjyxhu medications. He had an injection by Dr. Lugo into his hip joint on July 21, 2019, that did not give any relief. He enjoys walking, hunting, and fishing. He has been using a cane for the last several months, which has not helped that much. Past Medical History: Problems: Osteoarthritis of left hip DJD (degenerative joint disease), ankle and foot Preop examination Left lumbar radiculopathy Lumbar spinal stenosis Low back pain Bilateral primary osteoarthritis of hip Bilateral hip pain ANKLE - FOOT PAIN Sleep apnea ANKLE FRACTURE CA - Bladder cancer OA - Osteoarthritis Anxiety/depression Procedure History Procedure Procedure Date Comments Abdominal hernia - 3x Appendectomy Leg - surgery x3 Right lower leg Allergies and Sensitivities: penicillins(Shortness of breath) penicillins(Pharyngeal swelling) Social history: Completely negative Family history: Coronary artery disease Current Home Meds: (Last Updated 10/24 13:37) (DULoxetine 60 mg oral delayed release capsule) 60 mg PO Daily(Lipitor)(CeleBREX 100 mg oral capsule) 100 mg PO Daily contents of capsule may be mixed with soft foods such as apples auce(modafinil 100 mg oral tablet) 100 mg PO qAM(traMADol 50 mg oral tablet) 50 mg PO q4h PRN: as needed for pain not to exceed 400 mg/day Initial Wt: 10/24 119.5 kg 263 lb PRE-OP Diagnosis: Left hip osteoarthritis Planned Procedure: Left total hip arthroplasty Plan: Patient is scheduled to undergo this procedure at the [facility] with Dr. Emil Perez on November 17, 2019. Risks and complications of the procedure such as: Infection, bleeding, pain, scarring, nerve blood vessel damage, weakness, wound problems, stiffness, incomplete relief of symptoms, hardware failure, hardware loosening, wear, fracture, tendon or ligament injury, dislocation, leg length inequality, blood clots, embolism, heart attack, stroke and were explained the patient had at his visit today by Dr. Perez. Informed consent for the procedure was obtained. Patient also understands the risks of proceeding with surgical intervention during the COVID-19 pandemic. Currently patient is asymptomatic and understands that he will be tested for COVID prior to the procedure. We will need to obtained preoperative medical clearance medications primary care provider Dr. Noyola. We will obtain a CBC with differential, complete metabolic panel, PT/INR, blood type and screen, urinalysis, urine culture, EKG, hemoglobin A1c, and a nasal culture for MRSA. Patient states he will obtain this testing prior to his preanesthesia appointment at the hospital this afternoon. During today's visit the patient and I discussed total hip precautions. We went over the total hip packet. We talked about discharge planning. Patient and I discussed antibiotic use after total joint replacement surgery. I advised him that the [facility] provides lectures via zoom in regards to joint placement surgery. Patient states that he already has a handicap placard for his vehicle that is permanent. Patient states that he has a walker that he will bring with him on the day of his procedure. I advised him to purchase a hip kit from either [employer] or [employer]. We discussed abduction pillow use for 6 weeks postoperatively. I advised him that he will be discharged with a prescription for narcotic pain medication, and an anti-inflammatory, and we discussed the use of extra strength Tylenol and aspirin for DVT prophylaxis. Patient states he would like to be discharged home if he does well with therapy, and will prefer to have in-home therapy for the first 2 weeks postoperatively. Patient is scheduled for 2-week postoperative follow-up with myself on December 02, 2019 at 1:30 PM. At that appointment we will discuss outpatient physical therapy and provide him with rehab protocol. Patient verbalized understanding of all information provided during today's visit. He thanked us for the care that he received. Patient states if he has questions or concerns prior to the procedure, he will contact clinic. Principal Diagnosis Left Hip Osteoarthritis Discharge Data Allergies Allergy/AdvReac Type Severity Reaction Status Date / Time penicillin V Allergy Unknown rash, skin Verified 11/17/19 08:33 discoloration ether AdvReac Unknown severe N/V Verified 11/17/19 08:33 Consultations 11/18/19 08:00 Consult Case Management - Discharge Planning Routine Procedures Performed Operation Date: 11/17/19 10:15 Actual Procedures p Left Total Hip Arthroplasty(Left) - Emil Perez MD Hospital Course (1) Hip osteoarthritis: 69 yr old male underwent Left Total Hip Arthroplasty on 11-17-[address] Perez. Surgery was without complication. He was admitted under observation to the floor. He slept well throughout POD 0 evening. He has tolerated PO fluids and diet. Pain as been controlled on PO meds. POD 1 am labs wnl. His vitals have been stable. He tolerated PT/OT. WBAT with walker and following SHP. Post-op dressings removed and silverlon dressing remains intact. DVT prophylaxis in house consisted of TEDS, FOOT PUMPS, and ASA [address]ID[address] Dr Perez saw pt POD 1 am and deemed patient stable for discharge. Patient has denied f/c/s, CP, SOB, lightheadedness or dizziness. He will go home with his to his home with HHPT. Continue WBAT with walker. Continue SHP. Keep silverlon dressing on until follow-up. For DVT prophylaxis will cont with TEDS and increase chronic ASA 81mg to BID for 6wks. He will continue his chronic celebrex. We also recommend tylenol 1000mg 3xs a day for mild to moderate pain and a script for Oxycodone was sent to pharmacy for severe pain. He has a follow-up with our office for 2wks post-op and was instructed to call our office or go to the ER for any emergencies, problems, questions or concerns. See below for more detailed discharge instructions. Total Time Total Time Spent Total Time Spent (In Minutes): 20min Discharge Plan Discharge Items Patient Disposition: Home - Home Health Services Reason For Visit: Left Hip Arthritis Discharge Diagnosis: Left Hip Arthritis Activity: As commented below Lifting: None Bathing: Keep incision dry Bathing Comment: May shower tomorrow Sexual Activity: Wait until after follow-up appointment Exercise/Sports: Wait until after follow-up appointment Driving/Machine Use: No driving until cleared by school psychology specialist Weightbearing: Left weightbearing Weightbearing Comment: as tolerated with walker assistance Non-emergency contact: Surgeon Call non-emergency contact if: you have any medication questions, your pain is not controlled, your temperature is above 101.5, your wound has increased drainage and your wound pain has increased Follow-up/Referrals: Katy Noyola DO [Primary Care Provider] - Emil Perez MD [Physician] - 12/02/19 1:30 pm (with MILI Trimble PA-C) Diet: Regular Addtl Attending Provider Instructions: Post-operative Instructions Dear Patient and Family/Friends, Before you are discharged from the hospital, it is important to know what to expect when you get home after surgery. To that end, we have created this sheet of discharge instructions which covers many commonly asked questions. Make sure you go through this sheet in its entirety with your nurse before you are discharged. Please note that we will go over the specifics of your surgery and recovery when you return for your first post-operative visit. Sincerely, Dr. Perez Medications 1. Oxycodone 5 mg: take 1-2 tabs by mouth every 4-6 hours as needed for pain control. This will be sent to your pharmacy. 2. Celebrex 100 mg: Continue your daily regimen for post op pain and inflammation control. 3. Aspirin 81 mg: take 1 tab twice daily for 30 days post operatively for blood clot prevention. Please purchase. 4. Extra Strength Tylenol 500 mg: take 2 tabs every 6-8 hours as needed for post operative pain relief. Please purchase. Pain Expect to be in a fair amount of pain after surgery. Remember, our goal is not to eliminate your pain, but to make it tolerable. It is a good idea to stay ahead of your pain by taking the medications you were prescribed once you get home. Typically, the pain starts improving 3-7 days after surgery. You should start weaning off the narcotic pain medication (oxycodone, hydrocodone, hydromorphone, morphine) as soon as your pain improves. Please call our office if your pain is not adequately controlled. Ice Ice your operative site at least 5 times a day for 15-30 minutes at a time. Make sure you have a thin cloth between the ice or cooling unit and your skin to prevent freeman bite. This is especially important if you received a nerve block. Continue icing your operative site for the first 5-7 days after surgery, then as needed. Diet/Nausea/Vomiting Start by drinking clear liquids and eating crackers. If you can tolerate this, then you may resume your normal diet. If you feel nauseated or vomit, take Zofran/ondansetron (if prescribed). Please call our office if you have intractable nausea or vomiting, or, if after hours, you may go to the Emergency Room for help. Constipation Constipation is a common side effect of narcotic pain medication. If you have not had a bowel movement within 2 days after surgery, we recommend purchasing an over the counter laxative such as Milk of Magnesia, Dulcolax, or Miralax from a local pharmacy, and taking it as instructed. Call our clinic if any questions. Nerve block The anesthesia team sometimes places a nerve block to help with post-operative pain control. This results in significant numbness and inability to move the extremity. The nerve block usually wears off in 8-12 hours, but sometimes can last up to 24 hours. Please call our office if you are still unable to move your extremity after 24 hours, unless you received a pain pump to take home. Nerve blocks typically wear off quickly, so start taking pain medication as soon as you start feeling soreness near your surgical site. Weight bearing and Range of Motion. Weightbear as tolerated with a walker. Please follow Standard Hip Precautions Physical therapy You will be start with home health therapy. You will be given a prescription for outpatient physical therapy at your first post-operative appointment. Wound care and showering We will inspect your wound at your first post-operative visit, and may do a dressing change at that time. Most patients will be in a water-proof dressing that is removed 14 days after surgery. It is normal to see some dried blood on the dressing. Do not remove your dressing, paper strips or sutures yourself unless you are given permission. Showering is allowed the day after surgery. Do not scrub or remove any dressings. The wound should not be submerged underwater (i.e. in a bathtub or pool) until 4 weeks after surgery NORMA stockings If you were given white stockings, these are to be worn at all times except to shower (on both legs) for the first 2 weeks after surgery. Driving You may not drive while taking narcotic pain medication or while in a cast, splint, sling or brace. You, the patient, need to make the final determination about when you are safe to drive, however, the earliest you may consider driving after surgery is below: Hand/Wrist/Elbow Surgery: 3 days Shoulder Surgery: 2 weeks Hip,/Knee/Ankle Surgery: 4 weeks Fracture repair: 6 weeks Return to Work Your return to work depends on what surgery was done and what type of work you do. Please bring any paperwork your employer needs completed to your first post-operative visit. Also, bring a description of your job duties, as this helps us to understand what risks you may face at work. Travel Avoid long distance travel (greater than 1 hour) in airplanes and cars for the first 6 weeks after surgery. If you must travel, you need to have a Doppler ultrasound done before you travel to rule out a blood clot in your legs. Follow-up You should have a follow-up appointment already scheduled 1-2 days after s urgery. If not, please contact our office to make this appointment before you leave the hospital. When to call the office It is normal to have swelling and bruising in the limb that was operated on. This will improve with time. It is also normal to have fevers for the first 2 days after surgery. Reasons you should call your doctor include: Uncontrolled pain; Nausea, vomiting, or constipation that does not improve with medication; Fevers over 101.5, chills, sweats; Drainage or bleeding from the wound; Foul odor; Spreading areas of redness; Any other concerns Pending Studies at Discharge: No Stand-Alone Forms: My [facility] Medications and DC Order Prescriptions: New oxycodone 5 mg tablet 5 mg PO Q6H MDD 6 tabs per day Qty: 30 RF: 0 Continued modafinil 100 mg tablet 100 mg PO QAM Qty: 90 RF: 1 duloxetine 60 mg capsule,delayed release(DR/EC) 60 mg PO QPM Qty: 90 RF: 1 atorvastatin 20 mg tablet 20 mg PO DAILY Qty: 90 RF: 3 cholecalciferol (vitamin D3) [Vitamin D3] 1,000 unit capsule 1,000 unit PO HS Qty: 90 RF: 1 Glucosamine Chondroitin 550-30-1 mg capsule 1 cap PO QPM Qty: 90 RF: 0 meclizine 12.5 mg tablet 12.5 mg PO TID PRN (Reason: dizziness) Qty: 30 RF: 0 omega 3-gca-nua-fish oil [Fish Oil] 1,000 mg (120 mg-180 mg) Capsule 1,000 mg PO QAM RF: 0 celecoxib [Celebrex] 100 mg capsule 100 mg PO QAM RF: 0 Changed aspirin 325 mg Tablet 81 mg PO BID Qty: 0 RF: 0 Discharge Orders: Discharge Order (Routine); Ordered 11/18/19 Ordered By: Ade Post Admission Data Admit Date/Time: 11/17/19 13:10 Attending Provider: Emil Perez Admit Provider: Emil Perez Primary Care Provider: Katy Noyola
--- NOTE | 2019-11-18 12:06 | Orthopedic Progress Note ---
Date of Service November 18, 2019 Assessment & Plan (1) Hip osteoarthritis: s/p Left Total Hip Arthroplasty POD 1--Doing well Patient is doing well. VS and AM labs WNL Continue regular diet Continue ice Continue PO pain meds Continue DVT prophylaxis with teds, foot, pumps, ASA 81mg bid Continue PT/OT, WBAT with walker and SHP Post-op dressings removed. Silverlon to remain on until f/u appt. Patient stable to DC after lunch today. HHPT set up. Present on Admission?: Yes Admission and Anticipated Discharge Date Admission Date: November 17, 2019 Anticipated date of discharge: 11/18/19 Subjective Patient sitting up in chair. in room. Completed am PT and OT. Has been seen by Dr Perez. Denies f/c/s, CP, SOB. Pain controlled. Overall doing well. Feels ready to go home today after lunch. Physical Exam Physical Exam: Patient sitting up in chair. in room. Left hip silverlon dressing intact. No S/S of infection. B LE Teds on. NV intact B LE. 5/5 EHL, TA, gastroc strength. Sensation intact to light touch. Calves are soft. L leg with trace PE. Painless log rolling left hip. Able to flex and extend knee without issue. Results & Data ([facility]) Vital Signs (Past 12 Hours) Vital Signs Temp Pulse Resp BP Pulse Ox 11/18/19 11:44 36.5 C 59 L 18 124/78 96 11/18/19 11:34 36.5 C 59 L 18 124/78 96 11/18/19 07:16 36.4 C L 50 L 16 107/66 98 11/18/19 03:37 36.6 C 46 L 16 114/67 96 Laboratory Results 11/18/19 11/18/19 Range/Units 05:17 05:17 WBC 14.07 H (4.8-10.8) K/uL RBC 4.55 L (4.7-6.1) M/uL Hgb 14.1 (14.0-18.0) g/dL Hct 41.7 L (42-52) % MCV 91.6 (80-100) fL MCH 31.0 (25-34) pg MCHC 33.8 (32-36) g/dL RDW Std Deviation 43.7 (36.4-46.3) fL RDW Coeff of [place] 13.1 (11.5-14.5) % Plt Count 207 (130-400) K/uL MPV 10.5 H (7.4-10.4) fL Immature Gran % (Auto) 0.1 % Neut % (Auto) 83.3 % Lymph % (Auto) 7.2 % [place] % (Auto) 9.3 % Eos % (Auto) 0.0 % Baso % (Auto) 0.1 % Neut # (Auto) 11.72 H (1.4-6.5) K/uL Lymph # (Auto) 1.01 L (1.2-3.4) K/uL [place] # (Auto) 1.31 H (0.11-0.59) K/uL Eos # (Auto) 0.00 (0-0.5) K/uL Baso # (Auto) 0.01 (0-0.2) K/uL Immature Gran # (Auto) 0.02 (0.00-0.02) K/uL Sodium 140 (136-145) mmol/L Potassium 3.8 (3.5-5.1) mmol/L Chloride 110 H (98-107) mmol/L Carbon Dioxide 27 (21-32) mmol/L Anion Gap 3.0 (3-11) BUN 24 H (7-18) mg/dl Creatinine 0.92 (0.6-1.4) mg/dl Est Cr Clr Drug Dosing 101.9 ml/min Est GFR ( Amer) 96.6 Est GFR (Non-Af Amer) 83.4 BUN/Creatinine Ratio 25.6 H (10-20) Glucose 119 H (70-99) mg/dl Calcium 8.5 (8.5-10.1) mg/dl
[2019-11-18] MEDS ORDERED: CeleBREX 200 MG CAP PO SCH (21:00)
[2019-11-19] MEDS ORDERED: CELECOXIB 100 MG CAP PO SCH (09:00)
== END 2019-11-18 13:03 | disposition home health service (06) ==
LOC: 3E 08:01 → ASU 08:01

== ENCOUNTER 2021-01-03 08:41 | Observation (INO) ==
--- NOTE | 2020-12-20 14:29 | PAT Medication Instructions ---
Medication Instructions Date of Service December 20, 2020 Home Medications Medication Instructions Recorded cholecalciferol (vitamin D3) 25 1,000 unit PO HS #90 cap 11/22/18 mcg (1,000 unit) capsule (Vitamin D3) celecoxib 100 mg capsule (Celebrex) 100 mg PO QAM #90 cap 06/18/20 duloxetine 60 mg capsule,delayed 60 mg PO QPM #90 cap 06/20/20 release fluticasone propionate 50 2 spray INTRANASAL HS #15.8 ml 09/06/20 mcg/actuation nasal spray,suspension (Flonase Allergy Relief) modafinil 100 mg tablet 100 mg PO QAM #90 tab 09/24/20 omega 2-wdn-klk-fish oil 1,000 mg (120 mg-180 mg) capsule (Fish Oil) 1,000 mg PO QAM cholecalciferol (vitamin D3) 25 mcg (1,000 unit) capsule (Vitamin D3) 1,000 unit PO HS celecoxib 100 mg capsule (Celebrex) 100 mg PO QAM duloxetine 60 mg capsule,delayed release 60 mg PO QPM fluticasone propionate 50 mcg/actuation nasal spray,suspension (Flonase Allergy Relief) 2 spray INTRANASAL HS modafinil 100 mg tablet 100 mg PO QAM aspirin 81 mg tablet,delayed release 162 mg PO QAM atorvastatin 20 mg tablet 20 mg PO QPM ASK your surgeon for instructions celecoxib 100 mg capsule (Celebrex) 100 mg PO QAM ASK your prescriber and surgeon aspirin 81 mg tablet,delayed release 162 mg PO QAM STOP taking 2 weeks before surgery omega 6-wdk-plq-fish oil 1,000 mg (120 mg-180 mg) capsule (Fish Oil) 1,000 mg PO QAM DO NOT take the morning of surgery modafinil 100 mg tablet 100 mg PO QAM Take evening before surgery atorvastatin 20 mg tablet 20 mg PO QPM fluticasone propionate 50 mcg/actuation nasal spray,suspension (Flonase Allergy Relief) 2 spray INTRANASAL HS duloxetine 60 mg capsule,delayed release 60 mg PO QPM cholecalciferol (vitamin D3) 25 mcg (1,000 unit) capsule (Vitamin D3) 1,000 unit PO HS Other Notes NOTHING TO EAT OR DRINK AFTER MIDNIGHT. If you have any questions please call us at [phone] or [phone] or [phone] or [phone]
--- NOTE | 2020-12-21 13:57 | Anesthesiology Consultation ---
Date of Service December 21, 2020 Assessment & Plan (1) Encounter for pre-operative examination: - COVID screening: Per assessment on 12/20: Travel screen negative, no known COVID-19 positive contacts or current COVID-19 related symptoms. Patient vaccinated. Surgeon arranging preop COVID testing. Awaiting results. - S/P Left BLADE (11/17/19): SAB at L3/L4 at [facility], no issues per anesthesia progress note. - PCP office visit (12/19/20): "After a careful review of his chart, evaluation of his medical file, and a thorough physical examination, I have found that he is an acceptable risk surgical candidate given his cardiac, pulmonary, Infectious and functional capacity. At this time, patient is medically cleared." Chart Review Chart Review: Acceptable Risk for Surgery and Patient seen in Pre Admission Testing Teaching & Discussion Pre-Anesthesia Teaching/Discussion Notes: Instructed NPO after midnight before surgery,except medications with 15 cc of water. Medication instructions provided according to the PAT guidelines. History Surgery Operation Date: 01/03/21 09:20 Proposed Procedures p Right Total Knee Arthroplasty - Emil Perez MD Height/Weight Height: 6 ft 3 in Weight: 120.7 kg Allergies Allergy/AdvReac Type Severity Reaction Status Date / Time penicillin V Allergy Unknown Rash, skin Verified 12/20/20 10:09 discoloration ether AdvReac Unknown Severe N/V Verified 12/20/20 10:09 Medications Home Medications Medication Instructions Recorded Confirmed Last Taken omega 9-pii-uen-fish oil 1,000 mg 1,000 mg PO QAM 01/22/18 12/20/20 11/03/19 (120 mg-180 mg) capsule (Fish Oil) cholecalciferol (vitamin D3) 25 1,000 unit PO HS #90 cap 11/22/18 12/20/20 11/03/19 mcg (1,000 unit) capsule (Vitamin D3) duloxetine 60 mg capsule,delayed 60 mg PO QPM #90 cap 06/20/20 12/20/20 Unknown release fluticasone propionate 50 2 spray INTRANASAL HS #15.8 ml 09/06/20 12/20/20 Unknown mcg/actuation nasal spray,suspension (Flonase Allergy Relief) modafinil 100 mg tablet 100 mg PO QAM #90 tab 09/24/20 12/20/20 Unknown aspirin 81 mg tablet,delayed 162 mg PO QAM tab 12/19/20 12/20/20 Unknown release atorvastatin 20 mg tablet 20 mg PO QPM 12/20/20 12/20/20 Unknown celecoxib 100 mg capsule (Celebrex) 100 mg PO QAM #90 cap 12/21/20 Unknown Past Medical History Medical History Anxiety Arthritis Benign essential tremor Hx hands (Pt denies) BPH loc w urin obs/LUTS Follows with urology (Dr. Heard) Cancer SCC s/p excision L forearm (07/2019) Depression Follows with psychiatry Disc degeneration, lumbar Hyperlipidemia Lumbar spinal stenosis Mild cognitive impairment [place] r/t depression (follows with psychiatry) Osteoarthritis Paroxysmal atrial fibrillation Single noted episode (2011), no known recurrence Peripheral neuropathy, idiopathic Prediabetes Primary bladder malignant neoplasm Follows with urology (Dr. Heard) Sleep apnea Borderline, did not need device per retesting results per pt Exercise / Class Metabolic Activity II 4-5 Yardwork/Stairs/Walk up hill Past Family History Family History Father , 91 Coronary heart disease Skin cancer Mother , 70 Coronary heart disease Denies family history of Ovarian cancer Prostate cancer Breast cancer Lung cancer Colorectal cancer Past Surgical History Surgical History H/O cataract extraction R/L History of appendectomy History of biopsy of bladder History of colonoscopy History of cystoscopy History of herniorrhaphy x 3 History of incision and drainage pilonidal cyst History of local excision of skin lesion SCC forearm History of surgery RLE (s/p trauma, no hardware) History of tonsillectomy S/P epidural steroid injection X2 S/P hemorrhoidectomy S/P hip replacement Left BLADE (11/17/19): SAB at L3/L4 at [facility], no issues per anesthesia progress note. S/P TURP TURP: 06/30/17: LMA#5 at [facility] Past Anesthesia History No Hx of Anesthesia Complications and No Family Hx of Anesthesia Complications History of PONV No Hx of Motion Sickness and History of PONV (Ether- severe N/V as child (tosillectomy)) Social History Smoking Status: Never smoker Do You Dip or Chew Tobacco: No Hx Alcohol Use: Yes Alcohol type: beer alcohol intake frequency: a few times a month Hx Substance Use: No substance use type: does not use Review of Systems Patient denies chest pain, shortness of breath, dyspnea on exertion, fever, chills, cough, wheezing, palpitations. Physical Exam Vital Signs VITALS BP 116/76 P 66 TEMP 98.4 SP02 94%RA RESP 16 PHYSICAL Full cervical extension range of motion. Full TMJ range of motion. TMD 3 finger breaths Mallampati Score 3 Dentition: intact, + implant (right upper side) Lungs: clear throughout to auscultation Cardiac: regular rate and rhythm, I/ systolic murmur Spine: normal Carotid arteries: negative bruit Extremities: no edema Lab Results Anesthesia Preop Results Results Anesthesia Widget: WBC 8.04 K/uL (4.8-10.8) 12/21/20 Hgb 15.9 g/dL (14.0-18.0) 12/21/20 Hct 47.7 % (42-52) 12/21/20 Plt 281 K/uL (130-400) 12/21/20 Na 140 mmol/L (136-145) 12/21/20 K 4.2 mmol/L (3.5-5.1) 12/21/20 Cl 109 mmol/L (98-107) H 12/21/20 CO2 25 mmol/L (21-32) 12/21/20 BUN 21 mg/dl (7-18) H 12/21/20 Creat 0.92 mg/dl (0.6-1.4) 12/21/20 Glucose Level 105 mg/dl (70-99) H 12/21/20 PT 9.9 Seconds (9.0-12.0) 12/21/20 PTT 25.7 Seconds (21.0-31.0) 12/21/20 INR 1.0 (0.9-1.1) 12/21/20 HA1c 6.0 % (4.5-5.6) H 12/21/20 Urine Color Dark Yellow 12/21/20 Urine Appearance Clear (Clear) 12/21/20 Urine pH 5.0 (4.5-7.5) 12/21/20 Urine Specific [place] 1.020 (1.000-1.030) 12/21/20 Urine Protein Negative (Negative) 12/21/20 Urine Glucose (UA) Negative (Negative) 12/21/20 Urine Ketones Negative (Negative) 12/21/20 Urine Blood Negative (Negative) 12/21/20 Urine Nitrite Negative (Negative) 12/21/20 Urine Bilirubin Negative (Negative) 12/21/20 Urine Urobilinogen Negative (Negative) 12/21/20 Urine Leukocyte Esterase Trace (Negative) H 12/21/20 Urine WBC (Auto) 1-5 /hpf (0-5) 12/21/20 Urine RBC (Auto) 0-4 /hpf (0-4) 12/21/20 Urine Hyaline Casts (Auto) 1-5 /lpf (0-5) 12/21/20 Urine Epithelial Cells (Auto) 0-5 /lpf (0-5) 12/21/20 Urine Bacteria (Auto) Negative (Negative) 12/21/20 Blood Type A Positive 12/21/20 Antibody Screen NEGATIVE 12/21/20 Testing Electrocardiogram Date: 12/19/20 SR at 89bpm. Stress Test Date: 06/06/15 Negative exercise stress echo/ekg for ischemia at 92% MPHR. 8 METS. Mild cLVH. Mild AV sclerosis.
--- NOTE | 2020-12-24 11:29 | History & Physical Report ---
Date of Service December 24, 2020 Assessment & Plan (1) Osteoarthritis of right knee: Plan: PRE-OP Diagnosis: Right knee osteoarthritis Planned Procedure: Right total knee arthroplasty Plan: Patient is scheduled to undergo this procedure to [facility] on 01/03/[address] Emil Perez. Risks and complications of the procedure such as: Infection, bleeding, pain, scarring, nerve blood vessel damage, weakness, wound problems, stiffness, incomplete relief of symptoms, hardware failure, hardware loosening, wear, fracture, tendon or ligament injury, blood clots, embolism, heart attack, stroke and were explained to the patient and her visit today. Informed consent to perform the procedure was obtained. Patient also understands risks of proceeding with surgical intervention during the Covid 19 pandemic. Currently he is asymptomatic and understands that he will need to be tested prior to surgery. Patient saw his primary care provider on December 19 and we are awaiting a return fax of the PCP clearance form. Patient is scheduled to meet with anesthesia later today and while there he will obtain a CBC with differential, complete metabolic panel, PT/INR, blood type and screen, urinalysis, urine culture and sensitivity, EKG, hemoglobin A1c and a nasal culture for MRSA. During today's visit we reviewed the total knee packet. We discussed discharge planning, use of antibiotics after joint placement surgery and talked about lectures offered by the [facility] on joint replacement surgery via zoom. I did provide him with paperwork to obtain a handicap placard for his vehicle. Patient states that he has a walker he will bring with him on the day of the procedure. I advised him that he will be wearing a knee immobilizer for the first 48 hours following surgery. I also told him that I will discharge from the hospital with a prescription for narcotic pain medication, anti-inflammatory and we recommend that he supplement with extra Tylenol and use baby aspirin twice daily for blood clot prevention of first 30 days postoperatively. Patient is scheduled to see me for his 2-week postoperative follow-up on January 18 at 4 PM. If he has questions or concerns should arise prior to surgery, he will contact clinic. History of Present Illness Chief Complaint: Right knee pain Primary Care Provider: Katy Noyola DO History of Present Illness (including history relevant to procedure): 1-year-old male presents the clinic today for his preoperative history and physical. Patient states that his knee pain has been present for over a year and in the past 6 months it has become much worse. Patient states that for the most part it aches constantly throughout the day and it is affecting his ability to do activities around the house. States that rest does help alleviate some of the pain but he would prefer to be more active. He states that he is also having issues with his right ankle due to a previous fracture. He states that he has seen Dr. Klein in [place], who recommends that he have his knee taken care of before considering reconstructive surgery for his right ankle. In the meantime he will wear a brace on the ankle. Review Of Systems: A 12 point review of systems performed is unremarkable except for those things stated in the HPI and past medical history. Past Medical History: Problems: Primary osteoarthritis of right knee Arthritis of right ankle Right ankle pain Heart murmur Depression S/P total hip arthroplasty Osteoarthritis of left hip DJD (degenerative joint disease), ankle and foot Preop examination Left lumbar radiculopathy Lumbar spinal stenosis Low back pain Bilateral primary osteoarthritis of hip Bilateral hip pain ANKLE - FOOT PAIN ANKLE FRACTURE Sleep apnea CA - Bladder cancer OA - Osteoarthritis Procedure History Procedure Procedure Date Comments Abdominal hernia - 3x Appendectomy Leg - surgery x3 Right lower leg Total hip replacement Allergies and Sensitivities: penicillins(Shortness of breath) penicillins(Pharyngeal swelling) Social history: Patient denies alcohol tobacco or illicit drug use Family history: Coronary artery disease Current Home Meds: (Last Updated 12/21 12:54) DULoxetine (DULoxetine 60 mg oral delayed release capsule) 60 mg PO Daily atorvastatin (Lipitor) celecoxib (CeleBREX 100 mg oral capsule) 100 mg PO Daily contents of capsule may be mixed with soft foods such as applesauce fluticasone nasal (Flonase) Initial Wt: 12/21 122.2 kg 269 lb Allergies Allergy/AdvReac Type Severity Reaction Status Date / Time penicillin V Allergy Unknown Rash, skin Verified 12/20/20 10:09 discoloration ether AdvReac Unknown Severe N/V Verified 12/20/20 10:09 Home Medications Medication Instructions Recorded Confirmed Type omega 1-gtw-mxg-fish oil 1,000 mg 1,000 mg PO QAM 01/22/18 12/20/20 History (120 mg-180 mg) capsule (Fish Oil) cholecalciferol (vitamin D3) 25 1,000 unit PO HS #90 cap 11/22/18 12/20/20 Rx mcg (1,000 unit) capsule (Vitamin D3) duloxetine 60 mg capsule,delayed 60 mg PO QPM #90 cap 06/20/20 12/20/20 Rx release fluticasone propionate 50 2 spray INTRANASAL HS #15.8 ml 09/06/20 12/20/20 Rx mcg/actuation nasal spray,suspension (Flonase Allergy Relief) modafinil 100 mg tablet 100 mg PO QAM #90 tab 09/24/20 12/20/20 Rx aspirin 81 mg tablet,delayed 162 mg PO QAM tab 12/19/20 12/20/20 History release atorvastatin 20 mg tablet 20 mg PO QPM 12/20/20 12/20/20 History celecoxib 100 mg capsule (Celebrex) 100 mg PO QAM #90 cap 12/21/20 Rx Past Med/Surg History Medical History Anxiety Arthritis Benign essential tremor Hx hands (Pt denies) BPH loc w urin obs/LUTS Follows with urology (Dr. Heard) Cancer SCC s/p excision L forearm (07/2019) Depression Follows with psychiatry Disc degeneration, lumbar Hyperlipidemia Lumbar spinal stenosis Mild cognitive impairment [place] r/t depression (follows with psychiatry) Osteoarthritis Paroxysmal atrial fibrillation Single noted episode (2011), no known recurrence Peripheral neuropathy, idiopathic Prediabetes Primary bladder malignant neoplasm Follows with urology (Dr. Heard) Sleep apnea Borderline, did not need device per retesting results per pt Surgical History H/O cataract extraction R/L History of appendectomy History of biopsy of bladder History of colonoscopy History of cystoscopy History of herniorrhaphy x 3 History of incision and drainage pilonidal cyst History of local excision of skin lesion SCC forearm History of surgery RLE (s/p trauma, no hardware) History of tonsillectomy S/P epidural steroid injection X2 S/P hemorrhoidectomy S/P hip replacement Left BLADE (11/17/19): SAB at L3/L4 at [facility], no issues per anesthesia progress note. S/P TURP TURP: 06/30/17: LMA#[address] [facility] Family History Father , 91 Coronary heart disease Skin cancer Mother , 70 Coronary heart disease Denies family history of Ovarian cancer Prostate cancer Breast cancer Lung cancer Colorectal cancer Social History Smoking Status: Never smoker Second Hand Exposure: No; Hx Alcohol Use: Yes Alcohol type: beer Alcohol Intake Frequency: Monthly or Less Hx Substance Use: No Preferred Language: Maltese Communication Ability: Effective Visual Impairment: No Limitations Hearing Ability: Normal Sewing Pattern Layout Technician Required: No Beliefs That Will Affect Care: None marital status: Current Living Situation: Spouse current occupational status: retired current occupation: Bilingual Medical Assistant, [employer] Feels Safe at Home: Yes Childhood Exposure to Second-Hand Smoke: No caffeine: Yes during the past year weight has: decreased > 10 lbs Dental Care, Regularly: Yes Physical Activity Frequency: 3-4 Times per Week Physical Activity Frequency Comment: walking Seatbelt Use: always Sunscreen Use: Yes Assistive Devices: Denture - Upper and Glasses Review of Systems All systems reviewed & are unremarkable except as noted in Subjective Physical Exam Physical Exam: Physical Exam: (relevant to the procedure, including heart and lung evaluation) General: Alert and oriented x3 with proper grooming and hygiene Eyes: Pupils are equal and reactive to light with accommodation. Extraocular movements are intact Throat: Deferred due to COVID-19 precautions Cardiac: Regular rate and rhythm with a grade 3/6 holosystolic murmur heard best over the left upper sternal border Lungs: Clear to auscultation throughout with no wheezing, rales or rhonchi Abdomen: Obese, nondistended, nontender with NABS Extremities: Right knee; range of motion is from 2 degrees of extension to 115 degrees of flexion. Patient has visible valgus malalignment. He experiences lateral joint line tenderness when knee is palpated in flexed position. There is audible crepitation with passive range of motion. His patella is not mobile due to arthritic change. Patient walks with an antalgic gait. He is neurovascularly intact in the right lower extremity. Neuro: Cranial nerves II through XII are intact with no motor or sensory deficit Skin: Normal in appearance with no open skin areas or discharge Results & Data ([facility]) Diagnostic Findings Studies (relevant to the procedure): X-rays done include 3 views of the right knee as well as standing long-leg alignment films. On the PA flexed view, he has near [id number] arthritis on the lateral side of the knee. Tricompartmental osteophyte formation is noted. On the long-leg films from the hip to the ankle, his mechanical axis passes through the lateral compartment of the knee. However, this is most likely related to his previous tibia fracture, which has resulted in valgus bowing of the tibia.
[~2021-01-03 08:41] MED LIST changes: +CLINDAMYCIN 600 MG/54 ML BAG IV SCH; -CLINDAMYCIN 900 MG in DEXTROSE 5% 50 ML IV SCH; -METOCLOPRAMIDE HCL 10 MG TABLET PO SCH; +ROPIVACAINE 0.5% 5 MG/ML 30 ML VIAL ONE; +ROPIVACAINE 0.5% HCL/PF 150 MG, BUPIVACAINE 0.75% MPF 20 ML, EPINEPHrine 0.15 MG, Ketor... INFIL SCH; +Scopolamine 1 MG TDSY TD SCH; -TRAMADOL HCL 50 MG TABLET PO SCH; +traMADol HCL 50 MG TABLET PO SCH
[2021-01-03] MEDS ORDERED: ATROPINE SULFATE 0.1 MG/ML 10ML SYR IV PRN (09:56)
[2021-01-03] MEDS ORDERED: ePHEDrine sulfate 50 MG/ML AMP IV PRN (09:56)
[2021-01-03] MEDS ORDERED: ONDANSETRON INJ 2 MG/ML 2 ML VIAL IV PRN ×2 (09:56→13:36)
[2021-01-03] MEDS ORDERED: fentaNYL citrate 100 MCG/2 ML VIAL IV PRN (09:56)
[2021-01-03] MEDS ORDERED: DEXAMETHASONE SOD INJ 4 MG/ML VIAL ONE (10:05)
[2021-01-03] MEDS ORDERED: fentaNYL citrate 100 MCG/2 ML VIAL ONE ×2 (10:05→11:23)
[2021-01-03] MEDS ORDERED: ONDANSETRON INJ 2 MG/ML 2 ML VIAL ONE (10:05)
[2021-01-03] MEDS ORDERED: PROPOFOL IV EMULSION 10 MG/ML 20 ML VIAL IV ONE ×4 (10:05→13:04)
[2021-01-03] MEDS ORDERED: MIDAZOLAM HCL 1 MG/ML 2ML VIAL ONE ×2 (10:05→10:06)
[2021-01-03] MEDS ORDERED: LIDOCAINE 2% 2 ML VIAL/AMP(20MG/ML) INFIL ONE (10:05)
--- NOTE | 2021-01-03 10:18 | History & Physical Bridge Note ---
Date of Service January 03, 2021 History & Physical Bridge Note I have examined the patient, reviewed the History & Physical and in the interval since the performance of the History & Physical I have noted the following changes of clinical significance: no changes noted
[2021-01-03] MEDS ORDERED: ORTHO JOINT ANESTHETIC ONE (10:46)
--- NOTE | 2021-01-03 13:24 | Operative Report ---
Post Operative Report Pre & Post Diagnosis Operation Date: 01/03/21 10:40 Pre-Op Diagnosis: Right Knee Osteoarthritis Post-Op Diagnosis: Right Knee Osteoarthritis I identified the patient and participated in the time-out.: Yes Procedure Operation Date: 01/03/21 10:40 Actual Procedures p Right Total Knee Arthroplasty(Right) - Emil Perez MD Surgeon Emil Perez MD Watch Assembly Instructor Robbie Venegas MD, Mark Mchugh, MS-2, and MILI Trimble PA-C Estimated Blood Loss 100 Findings Consistent with Post-Op Diagnosis Specimens Right knee bone and soft tissue contents Anesthesia Type Spinal MAC Complications none Disposition Disposition: Recovery Room Indications 70-year-old male with right knee pain refractory to conservative management. X- rays demonstrate [id number] arthritis in the lateral compartment. Long-leg alignment film shows patient to be in valgus alignment. He has a previous segmental tibia fracture from when he was a child which is healed but is given him subsequent deformity. 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 I had a long discussion with him about the risks and benefits of surgery, alternatives to surgery, and expected outcomes. He was evaluated by foot and ankle surgeon for consideration of arthroplasty versus fusion of his ankle. It was recommended that he have his knee replacement done prior to any ankle surgeries. All his questions were answered. He elected to proceed with surgery Informed consent was signed. Description of Procedure Patient was identified in the preoperative holding area where the surgical site, right knee, was marked. Patient was brought back to the operating room, placed on the operating room table, and IV sedation was administered. All bony prominences were padded. Perioperative antibiotics and tranexamic acid were administered. Exam under anesthesia was performed. This demonstrated a valgus alignment. He had a 8 to 9 degree flexion contracture. Stable to varus and valgus stress testing at 30 degrees flexion. The surgical site was prepped and draped in the normal sterile fashion. Prior to incision a multidisciplinary timeout was called. All in the room were in agreement. We began by exsanguinating the limb with an Esmarch bandage. Tourniquet was inflated to 250 mmHg. A 14 cm long incision was made over the anterior aspect of the knee. I dissected through the subcutaneous tissues to the level of the fascia. Full-thickness flaps are raised above the fascia. A median parapatellar arthrotomy was made. Half the fat pad was excised. A medial release was performed with Bovie electrocautery on the proximal tibia. Synovitis in the suprapatellar pouch was removed. The patella was then everted and held with 2 towel clips. The thickness of the patella was measured at 31 mm. Patellar resection was performed. Caliper showed the patella thickness now to be 20 mm. A size 41 trial was placed and had a great fit. The 3 drill holes were placed then the trial button was placed. The patellar thickness was now 31 mm which I was very happy with. The patellar trial was then removed, the patella was everted and the knee was flexed up. Osteophytes were removed from the femoral condyles and intercondylar notch. The ACL and PCL were excised. Intramedullary drill guide was drilled into the femur. Distal femoral cutting guide was placed set at 5 degrees of valgus to resect 13 mm off the distal femur. Distal femoral resection was made without difficulty. Next we sized the femur. It sized to a size 6. 3 degree external rotation jig was placed. Drill holes were made. We checked these drill holes off of our epicondylar axis and Whitesides line. We were happy with the rotation of our pins. We then placed the size six 4-in-1 cutting jig and secured it with threaded headed pins. Anterior posterior and chamfer cuts were then made. Next, the tibia was then exposed. The lateral meniscus was sharply excised. The intramedullary tibial cutting jig was used due to his tibial deformity. The 3 degree posterior slope cutting block was positioned to resect 10 mm off the less involved medial compartment. The jig was then pinned in position and the tibial cut was made. We then brought the knee into full extension. Lamina spreaders were placed. The medial meniscus was excised. The extension block was then placed for 10 mm thickness poly. This gave us full extension and excellent stability to varus and valgus. The flexion block was then placed with the knee held at 90 degrees. Again we had excellent stability varus and valgus stress test. Next the box cutting jig was placed on the distal femur. The box cut was made and the femoral trial was impacted into position. The tibia was sized to a 5 for a fixed bearing component. The tibial tray was positioned in external rotation on the cut tibial surface and the knee was brought through a full range of motion. We then pinned the tibial tray into position and used the intramedul kavon drill followed by the keel punch. The trial polyethylene was then placed and the knee was brought through a full range of motion. I was very happy with the stability through a full range of motion, and the patellar tracking was excellent. Next the trial components were removed. Within the proximal tibia patient was noted to have some cystic formation. Bone from his previous chamfer cuts was tamped down into the intramedullary canal to prevent cement from spreading down the intramedullary canal. I then injected the posterior capsule and periosteum with the periarticular injection cocktail. The bone cuts were then irrigated and dried while the cement was mixed on the back table. The femoral component was cemented on first. Excess cement was removed. A lap sponge was placed over the femoral component for protection, then the tibia was subluxated anteriorly. The tibial component was then cemented in place. Again excess cement was removed. The knee was brought into full extension and held there until the cement cured. The patella was cemented and clamped. Dilute Betadine solution was then allowed to irrigate the knee while the cement cured. Once the cement was fully cured, the tourniquet was let down and meticulous hemostasis was ensured. The wound was irrigated out with copious amounts normal saline. The knee was brought through a full range of motion and we were very happy with the patella tracking and the stability. We then began to close. Interrupted 0 Vicryl suture was used to repair the patellar retinaculum in [id number] fashion. The quadriceps and patellar tendons were run with #1 Ethibond. The deep dermal layer was closed with interrupted 2-0 Vicryl. Dermabond and Zipline was used for the skin. A compressive dressing was placed. Patient's sedation was lifted and was transferred to recovery room in stable condition. Summary of implants: Depuy Sigma Posterior Stabilized Cemented Femur, size 6 All-polyethylene tibial component, 10 mm thickness, size 5 Oval dome patella, size 41 2 batches of simplex bone cement Postoperative course: Patient will be admitted to the floor for pain control and monitoring. Weightbearing as tolerated with no knee range of motion for 48 hours. Aspirin for DVT prophylaxis. I attest to the content of the Intraoperative Record and any orders documented therein. Any exceptions are noted below.
[2021-01-03] MEDS ORDERED: METOCLOPRAMIDE HCL INJ 5 MG/ML 2 ML VIAL IV PRN (13:36)
[2021-01-03] MEDS ORDERED: bisacodyL 10 MG SUPP PR PRN (13:36)
[2021-01-03] MEDS ORDERED: MAGNESIUM HYDROXIDE SUSP 30 ML UDC PO PRN (13:36)
[2021-01-03] MEDS ORDERED: diphenhydrAMINE 50 MG/ML VIAL IV PRN (13:36)
[2021-01-03] MEDS ORDERED: TAMSULOSIN HCL 0.4 MG CAP PO PRN (13:36)
[2021-01-03] MEDS ORDERED: NALOXONE HCL 0.4 MG/1 ML VIAL/CARP IV PRN (13:36)
[2021-01-03] MEDS ORDERED: HYDROmorphone INJ 0.5 MG/0.5 ML SYR IV PRN (13:36)
[2021-01-03] MEDS ORDERED: ALUMINUM/MAGNESIUM SUSP 30 ML UDC PO PRN (13:36)
[2021-01-03] MEDS ORDERED: oxyCODONE HCL IR 5 MG TAB (IMMEDIATE RELEASE) PO PRN (13:36)
--- NOTE | 2021-01-03 13:36 | Operative Report ---
Post Operative Report Pre & Post Diagnosis Operation Date: 01/03/21 10:40 Pre-Op Diagnosis: Right Knee Osteoarthritis Post-Op Diagnosis: Right Knee Osteoarthritis I identified the patient and participated in the time-out.: Yes Procedure Operation Date: 01/03/21 10:40 Actual Procedures p Right Total Knee Arthroplasty(Right) - Emil Perez MD Surgeon Emil Perez MD Asphalt Smoother Robbie Venegas MD, Mark Mchugh, MS-2, and MILI Trimble PA-C Estimated Blood Loss 100 Findings Consistent with Post-Op Diagnosis Specimens none Description of Procedure I was present during the entire case assisting with positioning, prepping, draping, wound retraction, wound closure, dressing and immobilizer placement. Fellow also present. I served as an extra set of hands during the case. Please see Dr. Perez procedure note for specifics of the case. I attest to the content of the Intraoperative Record and any orders documented therein. Any exceptions are noted below.
--- NOTE | 2021-01-03 13:37 | Operative Report ---
Post Operative Report Pre & Post Diagnosis Operation Date: 01/03/21 10:40 Pre-Op Diagnosis: Right Knee Osteoarthritis Post-Op Diagnosis: Right Knee Osteoarthritis I identified the patient and participated in the time-out.: Yes Procedure Operation Date: 01/03/21 10:40 Actual Procedures p Right Total Knee Arthroplasty(Right) - Emil Perez MD Surgeon Stefano Perez Cracking Still Operator Robbie Venegas MD, Mark Mchugh, MS-2, and MILI Trimble PA-C Estimated Blood Loss 100 Findings Consistent with Post-Op Diagnosis Consistent with post op diagnosis Specimens no specimens Description of Procedure I participated in prepping dressing and assisted Dr. Perez during the procedure I attest to the content of the Intraoperative Record and any orders documented therein. Any exceptions are noted below. Supervising Physician Co-Signing Physician Notes Dr. Perez
--- NOTE | 2021-01-03 14:04 | Anesthesiology Progress Note ---
Date of Service January 03, 2021 Anesthesia Post Procedure Vital Signs Vital Signs: Temp Pulse Pulse Resp BP BP Pulse Ox 01/03/21 14:00 97.2 F L 67 16 119/72 95 01/03/21 13:55 74 16 119/72 94 01/03/21 13:45 64 16 118/82 94 01/03/21 13:35 97.2 F L 82 16 126/79 92 01/03/21 11:11 63 20 124/82 99 01/03/21 11:00 98.1 F 64 21 126/84 99 01/03/21 09:41 98.1 F 73 18 156/90 H 97 Pain Intensity Right Ankle: Pain Intensity: 9 Transfer of Care Handoff Completed per policy Notes Mental Status: alert / awake / arousable and participated in evaluation Patient Amnestic to Procedure: Yes Nausea / Vomiting: adequately controlled Pain: adequately controlled Airway Patency, RR, SpO2: stable & adequate BP & HR: stable & adequate Hydration State: stable & adequate Neuraxial Anesthesia: was administered and sensory block is resolving Anesthetic Complications: no major complications apparent and Pt Satisfied with anesthetic care
--- NOTE | 2021-01-03 14:29 | XRay Report ---
RIGHT KNEE 2 VIEWS History: Right total knee arthroplasty. Degenerative arthritis. Postop. FINDINGS: The patient is status post a right total knee arthroplasty. The hardware is intact. No frac ture or dislocation. IMPRESSION: Right total knee arthroplasty. No evidence for hardware complication. ACT 112: Negative or not required by law. Electronically signed by: Abraham Sung M.D. 01/03/2021 2:28 PM
[2021-01-03] MEDS: ACETAMINOPHEN 500 MG TAB PO SCH ×2 (15:12→22:03)
[2021-01-03] MEDS: SODIUM CHLORIDE 0.9% 1000ML 1,000 ML IV SCH ×2 (15:59→21:06)
[2021-01-03] MEDS: KETOROLAC TROMETHAMINE 15 MG/ML VIAL IV SCH ×2 (16:04→22:02)
[2021-01-03] MEDS: Scopolamine CHECK PATCH PLACEMENT SCH (16:04)
[2021-01-03] MEDS: CLINDAMYCIN 600 MG in DEXTROSE 5% 50 ML IV SCH ×2 (19:24→20:09)
[2021-01-03] MEDS ORDERED: TRANEXAMIC ACID / 0.7% NACL 1,000 MG/100 ML BAG IV SCH (19:45)
[2021-01-03] MEDS: ASPIRIN 81 MG ECTAB PO SCH (20:42)
[2021-01-03] MEDS: DOCUSATE SODIUM 100 MG CAP PO SCH (20:47)
[2021-01-03] MEDS ORDERED: ATORVASTATIN 20 MG TAB PO SCH (21:00)
[2021-01-03] MEDS ORDERED: DULoxetine HCL 60 MG CAP PO SCH (21:00)
[2021-01-03] MEDS ORDERED: FLUTICASONE PROPIONATE NA SPR 16 GM BTL SCH (21:00)
[2021-01-03] MEDS ORDERED: SENNA 8.6 MG TAB PO SCH (21:00)
[2021-01-03] MEDS ORDERED: CHOLECALCIFEROL 1,000 UNITS 25 MCG TAB PO SCH (21:00)
[2021-01-04] MEDS: Scopolamine CHECK PATCH PLACEMENT SCH ×2 (00:01→07:43)
[2021-01-04] MEDS: KETOROLAC TROMETHAMINE 15 MG/ML VIAL IV SCH ×2 (03:51→10:15)
[2021-01-04] MEDS: CLINDAMYCIN 600 MG in DEXTROSE 5% 50 ML IV SCH (03:51)
[2021-01-04] MEDS: ACETAMINOPHEN 500 MG TAB PO SCH (05:33)
[2021-01-04 06:09] LABS: Hematocrit (blood only) 42.1 % (42-52); Hemoglobin 13.6 g/dL (14.0-18.0); Mean Corpuscular Hemoglobin 29.9 pg (25-34); Mean Corpuscular Hgb Conc 32.3 g/dL (32-36); Mean Corpuscular Volume 92.5 fL (80-100); Mean Platelet Volume 10.2 fL (7.4-10.4); Platelet Count 208 K/uL (130-400); RDW Coefficient of Variation 13.2 % (11.5-14.5); RDW Standard Deviation 44.7 fL (36.4-46.3); Red Blood Count 4.55 M/uL (4.7-6.1)
[2021-01-04 06:45] LABS: BUN Creatinine Ratio 24.2 (10-20); Calcium 8.7 mg/dl (8.5-10.1); Creatinine Clr Calc Pharmacy 96.4 ml/min; Est GFR (Non-African American) 77.7 ml/min
[2021-01-04] MEDS ORDERED: dexAMETHasone 4 MG TAB PO SCH (08:00)
[2021-01-04] MEDS: ASPIRIN 81 MG ECTAB PO SCH (08:36)
[2021-01-04] MEDS: DOCUSATE SODIUM 100 MG CAP PO SCH (08:36)
[2021-01-04] MEDS ORDERED: MULTIVITAMIN TAB PO SCH (09:00)
[2021-01-04] MEDS ORDERED: ASPIRIN 81 MG ECTAB PO SCH (09:00)
[2021-01-04] MEDS ORDERED: modafiniL 100 MG TAB PO SCH (09:00)
[2021-01-04] MEDS ORDERED: OMEGA-3 (PURIFIED FISH OIL) 1 GM CAP PO SCH (09:00)
--- NOTE | 2021-01-04 09:37 | Orthopedic Progress Note ---
Date of Service January 04, 2021 Assessment & Plan (1) Status post total right knee replacement using cement: Plan: PT/OT Ice with EZ wrap DVT prophylaxis with NORMA stockings and aspirin Pain control with p.o. medication Knee immobilizer use for first 48 hours postoperatively Weightbearing as tolerated with walker assistance Keep Silverlon dressing in place Follow-up with [facility] as previously scheduled With questions contact our clinic at [phone] Admission and Anticipated Discharge Date Admission Date: January 03, 2021 Subjective This 70-year-old male is day 1 status post right total knee arthroplasty.He is currently in [facility], Where he was housed overnight. Patient states that he was up ambulating last evening with his walker without difficulty. He denies any pain at present. He states he is anxious to go home. He states that he has met with case management this morning and they have established in-home physical therapy for him starting Thursday. Patient denies chest pain, shortness of breath, fever, chills, sweats, lethargy or numbness or tingling in his right lower extremity. Review of Systems Review of Systems: All systems reviewed & are unremarkable except as noted in Subjective Physical Exam Physical Exam: Right knee: Outer dressing was removed from the patient's right lower extremity. Silverlon is in place, clean and dry. Range of motion is from 0 to 70 degrees actively. Patient is able to perform a straight leg raise test. He is able to actively dorsi and plantarflex his foot. Quad strength is 3 out of 5. Patient is neurovascularly intact in right lower extremity. Results & Data ([facility]) Vital Signs (Past 12 Hours) Vital Signs Temp Pulse Resp BP Pulse Ox 01/04/21 05:34 36.6 C 94 H 16 109/67 94 Diagnostic Findings Laboratory Results WBC 12.20 K/uL (4.8-10.8) H 01/04/21 05:28 RBC 4.55 M/uL (4.7-6.1) L 01/04/21 05:28 Hgb 13.6 g/dL (14.0-18.0) L 01/04/21 05:28 Hct 42.1 % (42-52) 01/04/21 05:28 MCV 92.5 fL (80-100) 01/04/21 05:28 MCH 29.9 pg (25-34) 01/04/21 05:28 MCHC 32.3 g/dL (32-36) 01/04/21 05:28 RDW Std Deviation 44.7 fL (36.4-46.3) 01/04/21 05:28 RDW Coeff of Margarette 13.2 % (11.5-14.5) 01/04/21 05:28 Plt Count 208 K/uL (130-400) 01/04/21 05:28 MPV 10.2 fL (7.4-10.4) 01/04/21 05:28 Sodium 139 mmol/L (136-145) 01/04/21 05:28 Potassium 4.0 mmol/L (3.5-5.1) 01/04/21 05:28 Chloride 109 mmol/L (98-107) H 01/04/21 05:28 Carbon Dioxide 26 mmol/L (21-32) 01/04/21 05:28 Anion Gap 4.0 (3-11) 01/04/21 05:28 BUN 24 mg/dl (7-18) H 01/04/21 05:28 Creatinine 0.97 mg/dl (0.6-1.4) 01/04/21 05:28 Est Cr Clr Drug Dosing 96.4 ml/min 01/04/21 05:28 Est GFR ( Amer) 90.0 ml/min 01/04/21 05:28 Est GFR (Non-Af Amer) 77.7 ml/min 01/04/21 05:28 BUN/Creatinine Ratio 24.2 (10-20) H 01/04/21 05:28 Glucose 117 mg/dl (70-99) H 01/04/21 05:28 Calcium 8.7 mg/dl (8.5-10.1) 01/04/21 05:28 COVID[facility]19 [facility] 01/03/21 08:55 SARS-CoV-2, RNA, NAAT NEGATIVE (NEGATIVE) 01/03/21 08:55 Impressions Knee X-Ray 01/03/21 13:39 RIGHT KNEE 2 VIEWS History: Right total knee arthroplasty. Degenerative arthritis. Postop. FINDINGS: The patient is status post a right total knee arthroplasty. The hardware is intact. No fracture or dislocation. IMPRESSION: Right total knee arthroplasty. No evidence for hardware complication. ACT 112: Negative or not required by law. Electronically signed by: Abraham Sung M.D. 01/03/2021 2:28 PM
--- NOTE | 2021-01-04 09:51 | Discharge Summary ---
Date of Service January 04, 2021 Admission HPI Per Admitting Provider History of Present Illness (including history relevant to procedure): 1-year-old male presents the clinic today for his preoperative history and physical. Patient states that his knee pain has been present for over a year and in the past 6 months it has become much worse. Patient states that for the most part it aches constantly throughout the day and it is affecting his ability to do activities around the house. States that rest does help alleviate some of the pain but he would prefer to be more active. He states that he is also having issues with his right ankle due to a previous fracture. He states that he has seen Dr. Klein in [place], who recommends that he have his knee taken care of before considering reconstructive surgery for his right ankle. In the meantime he will wear a brace on the ankle. Review Of Systems: A 12 point review of systems performed is unremarkable except for those things stated in the HPI and past medical history. Past Medical History: Problems: Primary osteoarthritis of right knee Arthritis of right ankle Right ankle pain Heart murmur Depression S/P total hip arthroplasty Osteoarthritis of left hip DJD (degenerative joint disease), ankle and foot Preop examination Left lumbar radiculopathy Lumbar spinal stenosis Low back pain Bilateral primary osteoarthritis of hip Bilateral hip pain ANKLE - FOOT PAIN ANKLE FRACTURE Sleep apnea CA - Bladder cancer OA - Osteoarthritis Procedure History Procedure Procedure Date Comments Abdominal hernia - 3x Appendectomy Leg - surgery x3 Right lower leg Total hip replacement Allergies and Sensitivities: penicillins(Shortness of breath) penicillins(Pharyngeal swelling) Social history: Patient denies alcohol tobacco or illicit drug use Family history: Coronary artery disease Current Home Meds: (Last Updated 12/21 12:54) DULoxetine (DULoxetine 60 mg oral delayed release capsule) 60 mg PO Daily atorvastatin (Lipitor) celecoxib (CeleBREX 100 mg oral capsule) 100 mg PO Daily contents of capsule may be mixed with soft foods such as applesauce fluticasone nasal (Flonase) Initial Wt: 12/21 122.2 kg 269 lb Admission Exam Per Admitting Provider Physical Exam: (relevant to the procedure, including heart and lung evaluation) General: Alert and oriented x3 with proper grooming and hygiene Eyes: Pupils are equal and reactive to light with accommodation. Extraocular movements are intact Throat: Deferred due to COVID-19 precautions Cardiac: Regular rate and rhythm with a grade 3/6 holosystolic murmur heard best over the left upper sternal border Lungs: Clear to auscultation throughout with no wheezing, rales or rhonchi Abdomen: Obese, nondistended, nontender with NABS Extremities: Right knee; range of motion is from 2 degrees of extension to 115 degrees of flexion. Patient has visible valgus malalignment. He experiences lateral joint line tenderness when knee is palpated in flexed position. There is audible crepitation with passive range of motion. His patella is not mobile due to arthritic change. Patient walks with an antalgic gait. He is neurovascularly intact in the right lower extremity. Neuro: Cranial nerves II through XII are intact with no motor or sensory deficit Skin: Normal in appearance with no open skin areas or discharge Principal Diagnosis Right knee osteoarthritis Discharge Exam Right knee: Outer dressing was removed from the patient's right lower extremity. Silverlon is in place, clean and dry. Range of motion is from 0 to 70 degrees actively. Patient is able to perform a straight leg raise test. He is able to actively dorsi and plantarflex his foot. Quad strength is 3 out of 5. Patient is neurovascularly intact in right lower extremity. Discharge Data Allergies Allergy/AdvReac Type Severity Reaction Status Date / Time penicillin V Allergy Unknown Rash, skin Verified 01/03/21 10:01 discoloration ether AdvReac Unknown Severe N/V Verified 01/03/21 10:01 Procedures Performed Operation Date: 01/03/21 10:40 Actual Procedures p Right Total Knee Arthroplasty(Right) - Emil Perez MD Ordered Studies 01/03/21 05:00 US - OR guided needle placemen Routine Hospital Course (1) Status post total right knee replacement using cement: Patient had an uneventful overnight stay in [facility]. States he really has no pain in his right knee at present. Plans on discharge later this morning with home physical therapy for the first 2 weeks postoperatively. PT/OT Ice with EZ wrap DVT prophylaxis with NORMA stockings and aspirin Pain control with p.o. medication Knee immobilizer use for first 48 hours postoperatively Weightbearing as tolerated with walker assistance Keep Silverlon dressing in place Follow-up with [facility] orthopedics as previously scheduled With questions contact our clinic at [phone] Total Time Total Time Spent Total Time Spent (In Minutes): 20 mins Discharge Plan Discharge Items Patient Disposition: Home - Home Health Services Reason For Visit: Right Knee Osteoarthritis Discharge Diagnosis: Right knee osteoarthritis Activity: As commented below Lifting: None Bathing: Keep incision dry Bathing Comment: May shower tomorrow Sexual Activity: Wait until after follow-up appointment Exercise/Sports: Wait until after follow-up appointment Driving/Machine Use: No driving until cleared by desktop publishing specialist Weightbearing Comment: as tolerated with walker and immoblizer x 48 hrs Non-emergency contact: Surgeon Call non-emergency contact if: you have any medication questions, your pain is not controlled, your temperature is above 101.5, your wound has increased drainage and your wound pain has increased Follow-up/Referrals: Katy Noyola, [Primary Care Provider] - Diet: Regular Addtl Attending Provider Instructions: Post-operative Instructions Dear Patient and Family/Friends, Before you are discharged from the hospital, it is important to know what to expect when you get home after surgery. To that end, we have created this sheet of discharge instructions which covers many commonly asked questions. Make sure you go through this sheet in its entirety with your nurse before you are discharged. Please note that we will go over the specifics of your surgery and recovery when you return for your first post-operative visit. Sincerely, Dr. Perez Medications 1. Oxycodone 5 mg: Take 1 to 2 tablets every 4-6 hours as needed for pain. A prescription for this medication will be sent to your pharmacy. 2. Aspirin 81 mg: Take 1 tablet twice daily for the first 30 days postoperatively for blood clot prevention. Please purchase. 3. Extra strength Tylenol 500 mg: Take 2 tablets every 6-8 hours as needed for additional pain relief. Please purchase. 4. Resume your daily Celebrex for inflammation and pain relief. Pain Expect to be in a fair amount of pain after surgery. Remember, our goal is not to eliminate your pain, but to make it tolerable. It is a good idea to stay ahead of your pain by taking the medications you were prescribed once you get home. Typically, the pain starts improving 3-7 days after surgery. You should start weaning off the narcotic pain medication (oxycodone, hydrocodone, hydromorphone, morphine) as soon as your pain improves. Please call our office if your pain is not adequately controlled. Ice Ice your operative site at least 5 times a day for 15-30 minutes at a time. Make sure you have a thin cloth between the ice or cooling unit and your skin to prevent freeman bite. This is especially important if you received a nerve block. Continue icing your operative site for the first 5-7 days after surgery, then as needed. Diet/Nausea/Vomiting Start by drinking clear liquids and eating crackers. If you can tolerate this, then you may resume your normal diet. If you feel nauseated or vomit, take Zofran/ondansetron (if prescribed). Please call our office if you have intractable nausea or vomiting, or, if after hours, you may go to the Emergency Room for help. Constipation Constipation is a common side effect of narcotic pain medication. If you have not had a bowel movement within 2 days after surgery, we recommend purchasing an over the counter laxative such as Milk of Magnesia, Dulcolax, or Miralax from a local pharmacy, and taking it as instructed. Call our clinic if any questions. Slings and Braces If you were placed in a sling or brace, it must be worn at all times, including sleep. You may remove your sling or brace for physical therapy, home exercises, and showering. The length of time you will be in your brace and range of motion restrictions depends on what surgery you had; these details will be reviewed at your first post-operative appointment. Nerve block The anesthesia team sometimes places a nerve block to help with post-operative pain control. This results in significant numbness and inability to move the e xtremity. The nerve block usually wears off in 8-12 hours, but sometimes can last up to 24 hours. Please call our office if you are still unable to move your extremity after 24 hours, unless you received a pain pump to take home. Nerve blocks typically wear off quickly, so start taking pain medication as soon as you start feeling soreness near your surgical site. Weight bearing and Range of Motion. Do not bear any weight through your operative extremity immediately after surgery. If you had upper extremity surgery, do not lift anything with that arm. If you are in a knee brace, keep it locked in place until your follow-up. We will discuss your weight bearing, range of motion, and lifting restrictions in detail at your first post-operative appointment. Continuous Passive Motion (CPM) Machine If you were prescribed a CPM machine, it will start after your first post- operative appointment, at which time we will give you instructions on the range of motion settings and duration of treatment Physical therapy You will be given a prescription for physical therapy or occupational therapy at your first post-operative appointment. Typically, patients start therapy within 1 week of surgery Wound care and showering We will inspect your wound at your first post-operative visit, and may do a dressing change at that time. Most patients will be in a water-proof dressing that is removed 14 days after surgery. It is normal to see some dried blood on the dressing. Do not remove your dressing, paper strips or sutures yourself unless you are given permission. Showering is allowed the day after surgery. Do not scrub or remove any dressings. The wound should not be submerged underwater (i.e. in a bathtub or pool) until 4 weeks after surgery NORMA stockings If you were given white stockings, these are to be worn at all times except to shower (on both legs) for the first 2 weeks after surgery. Driving You may not drive while taking narcotic pain medication or while in a cast, splint, sling or brace. You, the patient, need to make the final determination about when you are safe to drive, however, the earliest you may consider driving after surgery is below: Hand/Wrist/Elbow Surgery: 3 days Shoulder Surgery: 2 weeks Hip,/Knee/Ankle Surgery: 4 weeks Fracture repair: 6 weeks Return to Work Your return to work depends on what surgery was done and what type of work you do. Please bring any paperwork your employer needs completed to your first post-operative visit. Also, bring a description of your job duties, as this helps us to understand what risks you may face at work. Travel Avoid long distance travel (greater than 1 hour) in airplanes and cars for the first 6 weeks after surgery. If you must travel, you need to have a Doppler ultrasound done before you travel to rule out a blood clot in your legs. Follow-up You should have a follow-up appointment already scheduled 1-2 days after surgery . If not, please contact our office to make this appointment before you leave the hospital. When to call the office It is normal to have swelling and bruising in the limb that was operated on. This will improve with time. It is also normal to have fevers for the first 2 days after surgery. Reasons you should call your doctor include: Uncontrolled pain; Nausea, vomiting, or constipation that does not improve with medication; Fevers over 101.5, chills, sweats; Drainage or bleeding from the wound; Foul odor; Spreading areas of redness; Any other concerns Pending Studies at Discharge: No Stand-Alone Forms: My [facility] Medications and DC Order Prescriptions: New oxycodone 5 mg tablet 5 mg PO Q4H Qty: 30 RF: 0 Continued duloxetine 60 mg capsule,delayed release(DR/EC) 60 mg PO QPM Qty: 90 RF: 1 fluticasone propionate [Flonase Allergy Relief] 50 mcg/actuation spray,suspension 2 spray intranasal HS Qty: 15.8 RF: 2 modafinil 100 mg tablet 100 mg PO QAM Qty: 90 RF: 1 celecoxib [Celebrex] 100 mg capsule 100 mg PO QAM Qty: 90 RF: 1 cholecalciferol (vitamin D3) [Vitamin D3] 1,000 unit capsule 1,000 unit PO HS Qty: 90 RF: 1 omega [id number]-fish oil [Fish Oil] 1,000 mg (120 mg-180 mg) Capsule 1,000 mg PO QAM RF: 0 atorvastatin 20 mg tablet 20 mg PO QPM RF: 0 Changed aspirin 81 mg tablet,delayed release (DR/EC) 81 mg PO BID Qty: 0 RF: 0 Discharge Orders: Discharge Order (Routine); Ordered 01/04/21 Ordered By: Quentin Trimble Admission Data Admit Date/Time: 01/03/21 13:36 Attending Provider: Emil Perez Admit Provider: Emil Perez Primary Care Provider: Katy Noyola Supervising Physician Co-Signing Physician Notes Dr. Perez
[2021-01-05] MEDS ORDERED: CELECOXIB 100 MG CAP PO SCH (09:00)
== END 2021-01-04 10:41 | disposition home health service (06) ==
LOC: PACUINP 08:41 → ASU 08:41

== ENCOUNTER 2021-02-16 14:10 | Inpatient (IN) ==
[2021-02-16] MEDS ORDERED: ALBUTEROL HFA 8 GM INHALER INH ONE (15:27)
[2021-02-16] MEDS ORDERED: ACETAMINOPHEN 1,000 MG/100 ML VIAL IV STA (15:27)
[2021-02-16] MEDS ORDERED: SODIUM CHLORIDE 0.9% 1000ML 1,000 ML IV ONE (15:27)
[2021-02-16] MEDS ORDERED: guaiFENesin 600 MG TABCR PO STA (15:27)
[2021-02-16 15:53] LABS: Basophils # (auto) 0.02 K/uL (0-0.2); Basophils % (auto) 0.2 %; Eosinophils # (auto) 0.19 K/uL (0-0.5); Eosinophils % (auto) 2.1 %; Hematocrit (blood only) 43.5 % (42-52); Hemoglobin 14.2 g/dL (14.0-18.0); Immature Granulocytes # (auto) 0.11 K/uL (0.00-0.02); Immature Granulocytes % (auto) 1.2 %; Lymphocytes # (auto) 0.67 K/uL (1.2-3.4); Lymphocytes % (auto) 7.4 %; Mean Corpuscular Hemoglobin 30.3 pg (25-34); Mean Corpuscular Hgb Conc 32.6 g/dL (32-36); Mean Corpuscular Volume 92.8 fL (80-100); Mean Platelet Volume 9.4 fL (7.4-10.4); Monocytes # (auto) 1.22 K/uL (0.11-0.59); Monocytes % (auto) 13.5 %; Neutrophils # (auto) 6.85 K/uL (1.4-6.5); Neutrophils % (auto) 75.6 %; Platelet Count 383 K/uL (130-400); RDW Coefficient of Variation 13.5 % (11.5-14.5); RDW Standard Deviation 46.2 fL (36.4-46.3); Red Blood Count 4.69 M/uL (4.7-6.1); White Blood Count 9.06 K/uL (4.8-10.8)
[2021-02-16 16:02] LABS: Alanine Aminotransferase 45 (12-78); Albumin Level 2.7 gm/dl (3.4-5.0); Aspartate Aminotransferase 37 U/L (15-37); BUN Creatinine Ratio 24.2 (10-20); Blood Urea Nitrogen 18 mg/dl (7-18); Calcium 9.5 mg/dl (8.5-10.1); Carbon Dioxide 26 mmol/L (21-32); Chloride 104 mmol/L (98-107); Est GFR (African American) 105.6 ml/min; Est GFR (Non-African American) 91.1 ml/min; Glucose 102 mg/dl (70-99); Lipase 84 U/L (73-393); Magnesium 2.2 mg/dl (1.8-2.4); Sodium 134 mmol/L (136-145)
[2021-02-16 16:07] LABS: Albumin Globulin Ratio 0.6 (0.9-2); Alkaline Phosphatase 72 U/L (45-117); Bilirubin,Total 0.4 mg/dl (0.2-1); Globulin 4.2 gm/dl (2.5-4.0); Total Protein 6.9 gm/dl (6.4-8.2); Troponin I < 0.015 ng/ml (0-0.045)
[2021-02-16 16:12] LABS: Appearance Urine Clear (Clear); Bilirubin Urine Negative (Negative); Blood Urine Negative (Negative); Color Urine Dark Yellow; Glucose Urine UA Negative (Negative); Ketones Urine 1+ (Negative); Leukocyte Esterase Urine Negative (Negative); Nitrite Urine Negative (Negative); Protein Urine Negative (Negative); Specific Gravity Urine 1.013 (1.000-1.030); Urobilinogen Urine Negative (Negative)
--- NOTE | 2021-02-16 16:26 | Emergency Department Note ---
Impression & Plan Pneumonia due to COVID-19 virus, Hypoxia, Generalized weakness ED Provider Note NAME: JOSE PATEL AGE: 70 SEX: M ARRIVES VIA: Ambulance INFORMANT: Patient ED PROVIDER(S): Cyrus Wilson MD CHIEF COMPLAINT: Weakness, body aches, fevers, shortness of breath, confusion. PLAN: Disposition: Admit MEDICAL DECISION MAKING: The patient is a pleasant 70-year-old gentleman with a past medical history of hypertension, hyperlipidemia, sleep apnea, BPH, lumbar stenosis, paroxysmal atrial fibrillation who presents emergency department from home for generalized weakness, malaise, fevers, body aches, shortness of breath, lightheadedness and confusion evolving over the past several days in the setting of developing symptoms and being diagnosed with COVID-19. The patient does have the 2 dose vaccine series in addition to the booster. He is unsure of any known COVID-19 exposures. His is also having symptoms. On arrival patient is uncomfortable but no acute distress, afebrile with stable vital signs. His O2 saturation is 92% and greater. He appears clinically dry. Lungs with intermittent wheeze and rhonchi. Abdomen is benign. He has no focal neurologic deficits. EKG without overt acute ischemia. Chest X-ray demonstrates multifocal pneumonia consistent with COVID-19 pneumonia given his history of COVID-19 infection. WBC, H/H and platelets within normal limits. Chemistry without metabolic acidosis. BUN/creatinine> 20 consistent with patient's clinically dry appearance. Electrolytes LFTs unremarkable. Troponin negative/undetectable. Lipase is not elevated. UA without evidence of infection. COVID-[address] of the head was negative for acute process. The patient was treated with IV fluid hydration, guaifenesin, albuterol MDI, and APAP. Unfortunately the patient was noted to desaturate down to the low 80s on room air following minimal exertion walking to the bathroom. He was placed on 2 L nasal cannula with improvement in his O2 saturation to the mid 90s. Given the patient's hypoxia in the setting of COVID-19 pneumonia the patient was in agreement for admission. Patient was given dexamethasone. JAE Ewing, with [facility] hospitalist, will evaluate the patient for adm ission. Triage Nursing notes reviewed and agree them. Prior medical records reviewed Vital Signs: reviewed and remarkable for hypoxia. Differential diagnosis: Infection, dehydration, metabolic abnormality, hypo/hyperglycemia, electrolyte disturbance, anemia, hypoxia, cardiac sources, intracerebral event, toxicologic, neurologic, as well as other pathologies. ER treatment provided: See below. Diagnostics interpreted by me: ECG: NSR, 82 bpm, no ectopy, no overt ST elevation or depression. Cardiac Monitoring: An order for continuous cardiac monitoring was placed and demonstrated NSR, 82 bpm, no ectopy. Laboratory studies: See below Imaging studies: See below Consultation(s): Víctor Jean [facility] [place] [place], with Dr. Goins, [facility] [place] hospitalist, will evaluate the patient for admission. HPI: The patient is a pleasant 70-year-old gentleman with a past medical history of hypertension, hyperlipidemia, sleep apnea, BPH, lumbar stenosis, paroxysmal atrial fibrillation who presents emergency department from home for generalized weakness, malaise, fevers, body aches, shortness of breath, lightheadedness and confusion evolving over the past several days in the setting of developing symptoms and being diagnosed with COVID-19. The patient does have the 2 dose vaccine series in addition to the booster. He is unsure of any known COVID-19 exposures. His is also having symptoms. ROS: See above HPI for pertinent positives & negatives. A total of 10 systems reviewed and were otherwise negative. PAST MEDICAL HISTORY:See Below PAST SURGICAL HISTORY:See Below FAMILY HISTORY:See Below SOCIAL HISTORY:See Below HOME MEDICATIONS:See Below ALLERGIES:See Below VITALS:See Below PHYSICAL EXAMINATION: GENERAL: Awake, alert, fatigued-appearing, in no distress HENT: Normocephalic, atraumatic. Oropharynx with dry mucous membranes and otherwise unremarkable. EYES: Normal conjunctiva. Sclera non-icteric. NECK: Supple. No nuchal rigidity. FROM. No JVD. RESPIRATORY: Intermittent wheeze and rhonchi. CARDIAC: Regular rate, normal rhythm. Extremities warm and well perfused. Pulses equal. ABDOMEN: Soft, non-distended. No tenderness to palpation. No rebound or guarding. No masses. RECTAL: Deferred. MUSCULOSKELETAL: Chest examination reveals no tenderness. The back is symmetric al on inspection without obvious abnormality. There is no CVA tenderness to palpation. No joint edema. LOWER EXTREMITIES: Calves are equal size bilaterally and non-tender. No edema. No discoloration. NEURO: Normal sensorium. No sensory or motor deficits noted. SKIN: No rash or jaundice noted. Cyrus Wilson MD Past Med/Surg History Medical History Anxiety Arthritis Benign essential tremor Hx hands (Pt denies) BPH loc w urin obs/LUTS Follows with urology (Dr. Heard) Cancer SCC s/p excision L forearm (07/2019) Depression Follows with psychiatry Disc degeneration, lumbar Hyperlipidemia Lumbar spinal stenosis Mild cognitive impairment [place] r/t depression (follows with psychiatry) Osteoarthritis Paroxysmal atrial fibrillation Single noted episode (2011), no known recurrence Peripheral neuropathy, idiopathic Prediabetes Primary bladder malignant neoplasm Follows with urology (Dr. Heard) Sleep apnea Borderline, did not need device per retesting results per pt Surgical History H/O cataract extraction R/L History of appendectomy History of biopsy of bladder History of colonoscopy History of cystoscopy History of herniorrhaphy x 3 History of incision and drainage pilonidal cyst History of local excision of skin lesion SCC forearm History of surgery RLE (s/p trauma, no hardware) History of tonsillectomy S/P epidural steroid injection X2 S/P hemorrhoidectomy S/P hip replacement Left BLADE (11/17/19): SAB at L3/L4 at [facility], no issues per anesthesia progress note. S/P TURP TURP: 06/30/17: LMA#5 at [facility] Family History Father , 91 Coronary heart disease Skin cancer Mother , 70 Coronary heart disease Denies family history of Ovarian cancer Prostate cancer Breast cancer Lung cancer Colorectal cancer Social History Smoking Status: Unknown if ever smoked Second Hand Exposure: No; Hx Alcohol Use: Yes Alcohol type: beer Alcohol Intake Frequency: Monthly or Less Hx Substance Use: No Preferred Language: Yi Communication Ability: Effective Visual Impairment: No Limitations Hearing Ability: Normal Boxing Promoter Required: No Beliefs That Will Affect Care: None marital status: Current Living Situation: Spouse current occupational status: retired current occupation: Commercial Maintenance Technician, [employer] Feels Safe at Home: Yes Childhood Exposure to Second-Hand Smoke: No caffeine: Yes during the past year weight has: decreased > 10 lbs Dental Care, Regularly: Yes Physical Activity Frequency: 3-4 Times per Week Physical Activity Frequency Comment: walking Seatbelt Use: always Sunscreen Use: Yes Assistive Devices: Cane and Walker Allergies Allergies Allergy/AdvReac Type Severity Reaction Status Date / Time penicillin V Allergy Unknown Rash, skin Verified 02/16/21 18:43 discoloration ether AdvReac Unknown Severe N/V Verified 02/16/21 18:43 Home Meds Home Medications Medication Instructions Recorded Confirmed omega 3-wwv-xil-fish oil 1,000 mg 1,000 mg PO QAM 01/22/18 02/16/21 (120 mg-180 mg) capsule (Fish Oil) atorvastatin 20 mg tablet 20 mg PO QPM 12/20/20 02/16/21 Previous Rx's Medication Instructions Recorded cholecalciferol (vitamin D3) 25 1,000 unit PO HS #90 cap 11/22/18 mcg (1,000 unit) capsule (Vitamin D3) duloxetine 60 mg capsule,delayed 60 mg PO QPM #90 cap 06/20/20 release fluticasone propionate 50 2 spray INTRANASAL HS #15.8 ml 09/06/20 mcg/actuation nasal spray,suspension (Flonase Allergy Relief) modafinil 100 mg tablet 100 mg PO QAM #90 tab 09/24/20 celecoxib 100 mg capsule (Celebrex) 100 mg PO QAM #90 cap 12/21/20 aspirin 81 mg tablet,delayed 81 mg PO BID #0 tab 01/04/21 release Results & Data (ED) Vital Signs Vital Signs - 24 hr 02/16/21 14:01 02/16/21 14:18 02/16/21 14:20 Temperature 37.0 C Temperature Source Oral Pulse Rate 80 81 83 Pulse Rate from SpO2 Sensor 79 83 Pulse Rhythm Regular Respiratory Rate 20 19 17 Respiratory Effort / Characteristics Non-Labored Respiratory Depth Normal Blood Pressure 127/70 Blood Pressure Mean 89 Pulse Oximetry 92 93 92 Oxygen Delivery Method Room Air Sepsis Recent Fever Within 48 Hours Yes Sepsis New/Unexplained Change in Mental Status No Sepsis Action Taken by Nursing No Action Required 02/16/21 14:30 02/16/21 14:40 02/16/21 14:50 Temperature Temperature Source Pulse Rate 81 79 81 Pulse Rate from SpO2 Sensor 81 79 79 Pulse Rhythm Respiratory Rate 24 25 H 30 H Respiratory Effort / Characteristics Respiratory Depth Blood Pressure 127/70 Blood Pressure Mean 89 Pulse Oximetry 92 92 92 Oxygen Delivery Method Sepsis Recent Fever Within 48 Hours Sepsis New/Unexplained Change in Mental Status Sepsis Action Taken by Nursing 02/16/21 15:00 02/16/21 15:10 02/16/21 15:20 Temperature Temperature Source Pulse Rate 79 84 88 Pulse Rate from SpO2 Sensor 79 83 87 Pulse Rhythm Respiratory Rate 22 27 H 26 H Respiratory Effort / Characteristics Respiratory Depth Blood Pressure 131/77 Blood Pressure Mean 95 Pulse Oximetry 93 93 92 Oxygen Delivery Method Sepsis Recent Fever Within 48 Hours Sepsis New/Unexplained Change in Mental Status Sepsis Action Taken by Nursing 02/16/21 15:27 02/16/21 15:30 02/16/21 15:40 Temperature Temperature Source Pulse Rate 80 80 80 Pulse Rate from SpO2 Sensor 81 80 Pulse Rhythm Regular Respiratory Rate 20 31 H 22 Respiratory Effort / Characteristics Respiratory Depth Blood Pressure 125/82 Blood Pressure Mean 96 Pulse Oximetry 92 93 93 Oxygen Delivery Method Room Air Sepsis Recent Fever Within 48 Hours Sepsis New/Unexplained Change in Mental Status Sepsis Action Taken by Nursing 02/16/21 15:50 02/16/21 16:00 02/16/21 16:01 Temperature Temperature Source Pulse Rate 82 86 74 Pulse Rate from SpO2 Sensor 83 87 75 Pulse Rhythm Respiratory Rate 18 18 23 Respiratory Effort / Characteristics Respiratory Depth Blood Pressure 141/88 H Blood Pressure Mean 105 Pulse Oximetry 93 92 94 Oxygen Delivery Method Sepsis Recent Fever Within 48 Hours Sepsis New/Unexplained Change in Mental Status Sepsis Action Taken by Nursing 02/16/21 16:10 02/16/21 16:20 02/16/21 17:37 Temperature Temperature Source Pulse Rate 80 72 81 Pulse Rate from SpO2 Sensor 81 72 82 Pulse Rhythm Respiratory Rate 21 20 18 Respiratory Effort / Characteristics Respiratory Depth Blood Pressure Blood Pressure Mean Pulse Oximetry 92 94 85 L Oxygen Delivery Method Sepsis Recent Fever Within 48 Hours Sepsis New/Unexplained Change in Mental Status Sepsis Action Taken by Nursing 02/16/21 17:38 02/16/21 17:40 Temperature Temperature Source Pulse Rate 78 75 Pulse Rate from SpO2 Sensor 77 71 Pulse Rhythm Respiratory Rate 16 23 Respiratory Effort / Characteristics Respiratory Depth Blood Pressure 119/66 Blood Pressure Mean 83 Pulse Oximetry 88 L 92 Oxygen Delivery Method Sepsis Recent Fever Within 48 Hours Sepsis New/Unexplained Change in Mental Status Sepsis Action Taken by Nursing Laboratory Data Attestation: I reviewed the patient's lab results. Result diagrams: 02/16/21 14:26 02/16/21 14:26 Lab Results 02/16/21 02/16/21 02/16/21 Range/Units 14:26 14:26 14:26 WBC 9.06 (4.8-10.8) K/uL RBC 4.69 L (4.7-6.1) M/uL Hgb 14.2 (14.0-18.0) g/dL Hct 43.5 (42-52) % MCV 92.8 (80-100) fL MCH 30.3 (25-34) pg MCHC 32.6 (32-36) g/dL RDW Std Deviation 46.2 (36.4-46.3) fL RDW Coeff of Margarette 13.5 (11.5-14.5) % Plt Count 383 (130-400) K/uL MPV 9.4 (7.4-10.4) fL Immature Gran % (Auto) 1.2 % Neut % (Auto) 75.6 % Lymph % (Auto) 7.4 % [place] % (Auto) 13.5 % Eos % (Auto) 2.1 % Baso % (Auto) 0.2 % Neut # (Auto) 6.85 H (1.4-6.5) K/uL Lymph # (Auto) 0.67 L (1.2-3.4) K/uL [place] # (Auto) 1.22 H (0.11-0.59) K/uL Eos # (Auto) 0.19 (0-0.5) K/uL Baso # (Auto) 0.02 (0-0.2) K/uL Immature Gran # (Auto) 0.11 H (0.00-0.02) K/uL PT 10.0 (9.0-12.0) Seconds INR 1.0 (0.9-1.1) Sodium 134 L (136-145) mmol/L Potassium 4.0 (3.5-5.1) mmol/L Chloride 104 (98-107) mmol/L Carbon Dioxide 26 (21-32) mmol/L Anion Gap 4.0 (3-11) BUN 18 (7-18) mg/dl Creatinine 0.76 (0.6-1.4) mg/dl Est Cr Clr Drug Dosing Not Reportable Est GFR ( Amer) 105.6 ml/min Est GFR (Non-Af Amer) 91.1 ml/min BUN/Creatinine Ratio 24.2 H (10-20) Glucose 102 H (70-99) mg/dl Calcium 9.5 (8.5-10.1) mg/dl Phosphorus 3.0 (2.5-4.9) mg/dl Magnesium 2.2 (1.8-2.4) mg/dl Ferritin 656.9 H (8-388) ng/ml Total Bilirubin 0.4 (0.2-1) mg/dl AST 37 (15-37) U/L ALT 45 (12-78) Alkaline Phosphatase 72 (45-117) U/L Lactate Dehydrogenase (87-241) U/L Total Creatine Kinase 30 L (39-308) U/L Troponin I < 0.015 (0-0.045) ng/ml C-Reactive Protein 10.80 H (0-0.29) mg/dl NT-Pro-B Natriuret Pep 182 (0-900) pg/ml Total Protein 6.9 (6.4-8.2) gm/dl Albumin 2.7 L (3.4-5.0) gm/dl Globulin 4.2 H (2.5-4.0) gm/dl Albumin/Globulin Ratio 0.6 L (0.9-2) Lipase 84 (73-393) U/L Procalcitonin (0-0.5) ng/ml Urine Color Urine Appearance (Clear) Urine pH (4.5-7.5) Ur Specific [place] (1.000-1.030) Urine Protein (Negative) Urine Glucose (UA) (Negative) Urine Ketones (Negative) Urine Blood (Negative) Urine Nitrite (Negative) Urine Bilirubin (Negative) Urine Urobilinogen (Negative) Ur Leukocyte Esterase (Negative) SARS-CoV-2 (PCR) (Negative) Influenza Type A (PCR) (Neg) Influenza Type B (PCR) (Neg) RSV (RT-PCR) (Neg) 02/16/21 02/16/21 02/16/21 Range/Units 14:26 14:26 15:49 WBC (4.8-10.8) K/uL RBC (4.7-6.1) M/uL Hgb (14.0-18.0) g/dL Hct (42-52) % MCV (80-100) fL MCH (25-34) pg MCHC (32-36) g/dL RDW Std Deviation (36.4-46.3) fL RDW Coeff of Margarette (11.5-14.5) % Plt Count (130-400) K/uL MPV (7.4-10.4) fL Immature Gran % (Auto) % Neut % (Auto) % Lymph % (Auto) % [place] % (Auto) % Eos % (Auto) % Baso % (Auto) % Neut # (Auto) (1.4-6.5) K/uL Lymph # (Auto) (1.2-3.4) K/uL [place] # (Auto) (0.11-0.59) K/uL Eos # (Auto) (0-0.5) K/uL Baso # (Auto) (0-0.2) K/uL Immature Gran # (Auto) (0.00-0.02) K/uL PT (9.0-12.0) Seconds INR (0.9-1.1) Sodium (136-145) mmol/L Potassium (3.5-5.1) mmol/L Chloride (98-107) mmol/L Carbon Dioxide (21-32) mmol/L Anion Gap (3-11) BUN (7-18) mg/dl Creatinine (0.6-1.4) mg/dl Est Cr Clr Drug Dosing Est GFR ( Amer) ml/min Est GFR (Non-Af Amer) ml/min BUN/Creatinine Ratio (10-20) Glucose (70-99) mg/dl Calcium (8.5-10.1) mg/dl Phosphorus (2.5-4.9) mg/dl Magnesium (1.8-2.4) mg/dl Ferritin (8-388) ng/ml Total Bilirubin (0.2-1) mg/dl AST (15-37) U/L ALT (12-78) Alkaline Phosphatase (45-117) U/L Lactate Dehydrogenase 415 H (87-241) U/L Total Creatine Kinase (39-308) U/L Troponin I (0-0.045) ng/ml C-Reactive Protein (0-0.29) mg/dl NT-Pro-B Natriuret Pep (0-900) pg/ml Total Protein (6.4-8.2) gm/dl Albumin (3.4-5.0) gm/dl Globulin (2.5-4.0) gm/dl Albumin/Globulin Ratio (0.9-2) Lipase (73-393) U/L Procalcitonin < 0.05 (0-0.5) ng/ml Urine Color Urine Appearance (Clear) Urine pH (4.5-7.5) Ur Specific [place] (1.000-1.030) Urine Protein (Negative) Urine Glucose (UA) (Negative) Urine Ketones (Negative) Urine Blood (Negative) Urine Nitrite (Negative) Urine Bilirubin (Negative) Urine Urobilinogen (Negative) Ur Leukocyte Esterase (Negative) SARS-CoV-2 (PCR) POSITIVE A* (Negative) Influenza Type A (PCR) Negative (Neg) Influenza Type B (PCR) Negative (Neg) RSV (RT-PCR) Negative (Neg) 02/16/21 Range/Units 15:49 WBC (4.8-10.8) K/uL RBC (4.7-6.1) M/uL Hgb (14.0-18.0) g/dL Hct (42-52) % MCV (80-100) fL MCH (25-34) pg MCHC (32-36) g/dL RDW Std Deviation (36.4-46.3) fL RDW Coeff of Margarette (11.5-14.5) % Plt Count (130-400) K/uL MPV (7.4-10.4) fL Immature Gran % (Auto) % Neut % (Auto) % Lymph % (Auto) % [place] % (Auto) % Eos % (Auto) % Baso % (Auto) % Neut # (Auto) (1.4-6.5) K/uL Lymph # (Auto) (1.2-3.4) K/uL [place] # (Auto) (0.11-0.59) K/uL Eos # (Auto) (0-0.5) K/uL Baso # (Auto) (0-0.2) K/uL Immature Gran # (Auto) (0.00-0.02) K/uL PT (9.0-12.0) Seconds INR (0.9-1.1) Sodium (136-145) mmol/L Potassium (3.5-5.1) mmol/L Chloride (98-107) mmol/L Carbon Dioxide (21-32) mmol/L Anion Gap (3-11) BUN (7-18) mg/dl Creatinine (0.6-1.4) mg/dl Est Cr Clr Drug Dosing Est GFR ( Amer) ml/min Est GFR (Non-Af Amer) ml/min BUN/Creatinine Ratio (10-20) Glucose (70-99) mg/dl Calcium (8.5-10.1) mg/dl Phosphorus (2.5-4.9) mg/dl Magnesium (1.8-2.4) mg/dl Ferritin (8-388) ng/ml Total Bilirubin (0.2-1) mg/dl AST (15-37) U/L ALT (12-78) Alkaline Phosphatase (45-117) U/L Lactate Dehydrogenase (87-241) U/L Total Creatine Kinase (39-308) U/L Troponin I (0-0.045) ng/ml C-Reactive Protein (0-0.29) mg/dl NT-Pro-B Natriuret Pep (0-900) pg/ml Total Protein (6.4-8.2) gm/dl Albumin (3.4-5.0) gm/dl Globulin (2.5-4.0) gm/dl Albumin/Globulin Ratio (0.9-2) Lipase (73-393) U/L Procalcitonin (0-0.5) ng/ml Urine Color Dark Yellow Urine Appearance Clear (Clear) Urine pH 7.0 (4.5-7.5) Ur Specific [place] 1.013 (1.000-1.030) Urine Protein Negative (Negative) Urine Glucose (UA) Negative (Negative) Urine Ketones 1+ H (Negative) Urine Blood Negative (Negative) Urine Nitrite Negative (Negative) Urine Bilirubin Negative (Negative) Urine Urobilinogen Negative (Negative) Ur Leukocyte Esterase Negative (Negative) SARS-CoV-2 (PCR) (Negative) Influenza Type A (PCR) (Neg) Influenza Type B (PCR) (Neg) RSV (RT-PCR) (Neg) Administered Medications Aspirin (Aspirin 81 Mg Ectab) 81 mg PO BID FRANKY Stop: 03/18/21 20:59 Last Admin: 02/16/21 21:34 Dose: 81 mg Documented by: [id number] Atorvastatin Calcium (Atorvastatin 20 Mg Tab) 20 mg PO QPM FRANKY Stop: 03/18/21 20:59 Last Admin: 02/16/21 21:34 Dose: 20 mg Documented by: [id number] Duloxetine HCl (Duloxetine Hcl 60 Mg Cap) 60 mg PO QPM FRANKY Stop: 03/18/21 20:59 Last Admin: 02/16/21 21:34 Dose: 60 mg Documented by: [id number] Enoxaparin Sodium (Enoxaparin Inj 40 Mg/0.4 Ml Syr) 40 mg SQ Q12H FRANKY Stop: 03/18/21 18:59 Last Admin: 02/16/21 21:29 Dose: 40 mg Documented by: [id number] Fluticasone Propionate (Fluticasone Propionate Na Spr 16 Gm Btl) 2 sprays NA [facility] Stop: 03/18/21 20:59 Last Admin: 02/16/21 21:34 Dose: 2 sprays Documented by: [id number] Pantoprazole Sodium 40 mg/ (Syringe) 10 mls @ 5 mls/min IV BID [facility] Stop: 03/18/21 20:59 Last Admin: 02/16/21 21:34 Dose: 5 mls/min Documented by: [id number] Vitamin D (Cholecalciferol 1,000 Units 25 Mcg Tab) 1,000 units PO [facility] Stop: 03/18/21 20:59 Last Admin: 02/16/21 21:34 Dose: 1,000 units Documented by: [id number] Discontinued Medications Albuterol (Albuterol Hfa 8 Gm Inhaler) 2 puffs INH NOW ONE Stop: 02/16/21 15:28 Last Admin: 02/16/21 15:56 Dose: 2 puffs Documented by: [id number] Dexamethasone Sodium Phosphate (DexamethasonePf 10 Mg/Ml Vial) 6 mg IV NOW ONE Stop: 02/16/21 17:44 Last Admin: 02/16/21 18:08 Dose: 6 mg Documented by: [id number] Guaifenesin (Guaifenesin 600 Mg Tabcr) 600 mg PO NOW STA Stop: 02/16/21 15:28 Last Admin: 02/16/21 15:56 Dose: 600 mg Documented by: [id number] Sodium Chloride (Nss 1000ml) 1,000 mls @ 999 mls/hr IV .Q1H1M ONE Stop: 02/16/21 16:27 Last Admin: 02/16/21 15:59 Dose: 999 mls/hr Documented by: [id number] Acetaminophen (Ofirmev) 1,000 mg in 100 mls @ 400 mls/hr IV NOW STA Stop: 02/16/21 15:41 Last Admin: 02/16/21 15:56 Dose: 400 mls/hr Documented by: [id number] Remdesivir 200 mg/ Sodium (Chloride) 250 mls @ 125 mls/hr IV 1915 ONE; Protocol Stop: 02/16/21 21:14 Last Admin: 02/16/21 21:29 Dose: 125 mls/hr Documented by: [id number] Sodium Chloride (Sodium Chloride 0.9% 10ml Flush) 30 ml IV Q24H FRANKY Stop: 02/16/21 21:01 Last Admin: 02/16/21 21:30 Dose: 30 ml Documented by: [id number] Imaging Data Radiologist's Impression: Chest X-Ray 02/16/21 15:27 XR chest 1V portable HISTORY: 70 years-old Male Chest Pain acute atypical chest pain COMPARISON: Chest radiograph 09/06/2019 TECHNIQUE: Portable AP view of the chest FINDINGS: Cardiac silhouette is enlarged, unchanged. Mild interstitial coarsening with ill-defined bibasilar and right upper lung predominant airspace opacities. There is no pneumothorax or large pleural effusion. Degenerative changes of the shoulders and spine. IMPRESSION: Bibasilar and right upper lung predominant opacities are suggestive of multifocal pneumonia. ACT 112: Negative or not required by law. The above report was generated using voice recognition software. It may contain grammatical, syntax or spelling errors. Electronically signed by: Eddie Munguia M.D. 02/16/2021 4:[address] 02/16/21 15:28 CT head/brain wo con CLINICAL HISTORY: 70 years-old Male with covid, confusion, dizziness. Acute dizziness with confusion. COVID Positive. TECHNIQUE: Multiple axial CT images of the head were obtained without contrast. A dose lowering technique was utilized adhering to the principles of ALARA. CT DOSE: 1105.10 mGy.cm COMPARISON: Head CT 09/06/2019 FINDINGS: No acute intracranial hemorrhage, midline shift, intracranial mass, hydroce phalus, territorial ischemia or abnormal extra-axial collection. Minimal age- related involutional changes. Calcifications of the falx cerebri. The calvarium is intact. Prior bilateral lens repair. The paranasal sinuses, mastoid air cells, and middle ear cavities are clear. IMPRESSION: No acute intracranial abnormality. ACT 112: Negative or not required by law. The above report was generated using voice recognition software. It may contain grammatical, syntax or spelling errors. Electronically signed by: Eddie Munguia M.D. 02/16/2021 4:45 PM Discharge Plan Visit Data Chief Complaint: Confusion ED Provider: Cyrus Wislon Discharge Problem: Pneumonia due to COVID-19 virus, Hypoxia, Generalized weakness Patient Disposition: Admitted As Inpatient Discharge Instructions Interventions: ED Discharge Assessment Last Done: 02/16/21 20:00
--- NOTE | 2021-02-16 16:28 | XRay Report ---
XR chest 1V portable HISTORY: 70 years-old Male Chest Pain acute atypical chest pain COMPARISON: Chest radiograph 09/06/2019 TECHNIQUE: Portable AP view of the chest FINDINGS: Cardiac silhouette is enlarged, unchanged. Mild interstitial coarsening with ill-defined bibasilar an d right upper lung predominant airspace opacities. There is no pneumothorax or large pleural effusion . Degenerative changes of the shoulders and spine. IMPRESSION: Bibasilar and right upper lung predominant opacities are suggestive of multifocal pneumon ia. ACT 112: Negative or not required by law. The above report was generated using voice recognition software. It may contain grammatical, syntax o r spelling errors. Electronically signed by: Eddie Munguia M.D. 02/16/2021 4:26 PM
--- NOTE | 2021-02-16 16:47 | CT Scan Report ---
CT head/brain wo con CLINICAL HISTORY: 70 years-old Male with covid, confusion, dizziness. Acute dizziness with confusion . COVID Positive. TECHNIQUE: Multiple axial CT images of the head were obtained without contrast. A dose lowering tech nique was utilized adhering to the principles of ALARA. CT DOSE: 1105.10 mGy.cm COMPARISON: Head CT 09/06/2019 FINDINGS: No acute intracranial hemorrhage, midline shift, intracranial mass, hydrocephalus, territorial ischem ia or abnormal extra-axial collection. Minimal age-related involutional changes. Calcifications of th e falx cerebri. The calvarium is intact. Prior bilateral lens repair. The paranasal sinuses, mastoid air cells, and m iddle ear cavities are clear. IMPRESSION: No acute intracranial abnormality. ACT 112: Negative or not required by law. The above report was generated using voice recognition software. It may contain grammatical, syntax o r spelling errors. Electronically signed by: Eddie Munguia M.D. 02/16/2021 4:45 PM
[2021-02-16 16:50] LABS: Influenza A virus by PCR Negative (Neg); Influenza B virus by PCR Negative (Neg); RSV by PCR Negative (Neg)
[2021-02-16 16:57] LABS: SARS CoV2 RNA(COVID-19) InHosp POSITIVE (Negative)
[2021-02-16 17:03] LABS: Creatine Kinase 30 U/L (39-308)
[2021-02-16] MEDS ORDERED: dexAMETHasone**PF** 10 MG/ML VIAL IV ONE (17:43)
[2021-02-16] MEDS ORDERED: ACETAMINOPHEN 325 MG TAB PO PRN (18:52)
[2021-02-16] MEDS ORDERED: POLYETHYLENE (MIRALAX) 17 GM PACK PO PRN (18:52)
[2021-02-16] MEDS ORDERED: ONDANSETRON INJ 2 MG/ML 2 ML VIAL IV PRN (18:52)
[2021-02-16] MEDS ORDERED: REMDESIVIR 200 MG in SODIUM CHLORIDE 0.9% 210 ML IV ONE (19:15)
[2021-02-16 19:20] LABS: Ferritin 656.9 ng/ml (8-388); NT Pro B Type Natriuretic Pept 182 pg/ml (0-900)
--- NOTE | 2021-02-16 19:35 | History & Physical Report ---
Date of Service February 16, 2021 Assessment & Plan (1) COVID-19: Plan: COVID 19 vaccinated with booster - Approx day of illness day 8 - Remdisivir for 5 days - Decadron 6mg IV daily increase dosing may be required- if he becomes candidate for baricitinib or tocilizumab will need to go back to 6mg IV daily - Albuterol inh scheduled q6 hours - Self proning and rotation therapy q2 hours - CRP-10.80 - Fibrinogen/LDH/Ferritin/PCT pending on admission - Currently on 2LNC- titrate o2 for SPO2 >92 - NC/HFNC/CPAP/BiPAP/INTUBATION - Currently no evidence of bacterial infection hold antibiotics - Diurese when appropriate (2) Hypoxia: Plan: Hypoxia without respiratory failure at this time - As above (3) Aortic valve sclerosis: Plan: No therapy as outpatient - follow fluid volume status (4) H/O: HTN (hypertension): Plan: Follow while in house (5) Paroxysmal atrial fibrillation: Plan: No documented re-occurrence since 2011 - continue aspirin - follow telemetry with acute illness (6) Hyperlipidemia: Plan: Continue statin (7) Lumbar spinal stenosis: Plan: Continue celecoxib will add PPI with Decadron and NSAID (8) Disc degeneration, lumbar: Plan: As above (9) Sleep apnea: Plan: Stopped his CPAP at home as he did not notice any difference - He is on Modafinil at home- continue - may need CPAP/BIPAP if oxygenation becomes concerning (10) BPH loc w urin obs/LUTS: Plan: Small frequent voids - follow History of Present Illness Primary Care Provider: Katy Noyola, DO 70 YOM with past medical history of: Bladder cancer, OA, hip replacement, knee replacement, afib(2011 no recurrence), HLD, DAVID (on modafinil), Aortic valve sclerosis. Patient comes to the EMD today for worsening of fatigue, dysnpnea, lightheadedness. Patient started feeling ill on [id number] with complaints of head congestion, cough, fevers, body aches, and loss of sense of smell and taste. He was noting increase in fatigue and difficulty catching his breath when going around his house. He had COVID + test today. He is vaccinated and got his booster [id number], his is also ill, but doing Ok at this time per him. In the EMD he had routine labs drawn and CXR done. His CXR was notable for bilateral and RUL opacities he had a CT scan of his head performed for lightheadedness and confusion upon arrival, which was negative for acute process. He was noted to be 88% on room air and was placed on 2LNC with SPO2 now 93-96%. He was given 6mg of Decadron and hospitalist was consulted for admission. Patient will be admitted for COVID 19 hypoxia to continue steroid dosing of 6mg daily, ordered CRP and other biomarkers. Follow clinical course. Patient is vaccinated and did receive booster: COVID test on admission is: POSITIVE Allergies Allergy/AdvReac Type Severity Reaction Status Date / Time penicillin V Allergy Unknown Rash, skin Verified 02/16/21 18:43 discoloration ether AdvReac Unknown Severe N/V Verified 02/16/21 18:43 Home Medications Medication Instructions Recorded Confirmed Type omega 8-nbw-[id number]-fish oil 1,000 mg 1,000 mg PO QAM 01/22/18 02/16/21 History (120 mg-180 mg) capsule (Fish Oil) cholecalciferol (vitamin D3) 25 1,000 unit PO HS #90 cap 11/22/18 02/16/21 Rx mcg (1,000 unit) capsule (Vitamin D3) duloxetine 60 mg capsule,delayed 60 mg PO QPM #90 cap 06/20/20 02/16/21 Rx release fluticasone propionate 50 2 spray INTRANASAL HS #15.8 ml 09/06/20 02/16/21 Rx mcg/actuation nasal spray,suspension (Flonase Allergy Relief) modafinil 100 mg tablet 100 mg PO QAM #90 tab 09/24/20 02/16/21 Rx atorvastatin 20 mg tablet 20 mg PO QPM 12/20/20 02/16/21 History celecoxib 100 mg capsule (Celebrex) 100 mg PO QAM #90 cap 12/21/20 02/16/21 Rx aspirin 81 mg tablet,delayed 81 mg PO BID #0 tab 01/04/21 02/16/21 Rx release Past Med/Surg History Medical History Anxiety Arthritis Benign essential tremor Hx hands (Pt denies) BPH loc w urin obs/LUTS Follows with urology (Dr. Heard) Cancer SCC s/p excision L forearm (07/2019) Depression Follows with psychiatry Disc degeneration, lumbar Hyperlipidemia Lumbar spinal stenosis Mild cognitive impairment Morrill r/t depression (follows with psychiatry) Osteoarthritis Paroxysmal atrial fibrillation Single noted episode (2011), no known recurrence Peripheral neuropathy, idiopathic Prediabetes Primary bladder malignant neoplasm Follows with urology (Dr. Heard) Sleep apnea Borderline, did not need device per retesting results per pt Surgical History H/O cataract extraction R/L History of appendectomy History of biopsy of bladder History of colonoscopy History of cystoscopy History of herniorrhaphy x 3 History of incision and drainage pilonidal cyst History of local excision of skin lesion SCC forearm History of surgery RLE (s/p trauma, no hardware) History of tonsillectomy S/P epidural steroid injection X2 S/P hemorrhoidectomy S/P hip replacement Left BLADE (11/17/19): SAB at L3/L4 at [facility], no issues per anesthesia progress note. S/P TURP TURP: 06/30/17: LMA#5 at [facility] Family History Father , 91 Coronary heart disease Skin cancer Mother , 70 Coronary heart disease Denies family history of Ovarian cancer Prostate cancer Breast cancer Lung cancer Colorectal cancer Social History Smoking Status: Unknown if ever smoked Second Hand Exposure: No; Hx Alcohol Use: Yes Alcohol type: beer Alcohol Intake Frequency: Monthly or Less Hx Substance Use: No Preferred Language: Belarusian Communication Ability: Effective Visual Impairment: No Limitations Hearing Ability: Normal Color Technician Required: No Beliefs That Will Affect Care: None marital status: Current Living Situation: Spouse current occupational status: retired current occupation: Business Management Analyst, [employer] Feels Safe at Home: Yes Childhood Exposure to Second-Hand Smoke: No caffeine: Yes during the past year weight has: decreased > 10 lbs Dental Care, Regularly: Yes Physical Activity Frequency: 3-4 Times per Week Physical Activity Frequency Comment: walking Seatbelt Use: always Sunscreen Use: Yes Assistive Devices: Cane and Walker Review of Systems Review of Systems: REVIEW OF SYSTEMS: Constitutional: (+) fever, sweats or chills Eyes: No diplopia, no worsening or blurred vision ENT: normal hearing, no trouble swallowing Respiratory: (+) cough, sputum, dyspnea at rest or on exertion Cardiovascular: No chest pain, tightness or palpitations Abdomen: No pain, nausea, vomiting, diarrhea or constipation Musculoskeletal: (+) joint pain, calf pain, swelling Neurologic: No weakness, numbness/tingling, or balance problems Psychiatric: No anxiety or depression Skin: No rash or itch Physical Exam Physical Exam: PHYSICAL EXAM: General: awake, alert, fatigued appearing Head: Normocephalic, atraumatic ENT: PERRL, EOMI, no pharyngeal exudate, mucous membranes dry Neuro: AAO x 3, speech clear and appropriate, strength intact bilaterally 5/5, sensation intact and equal all extremities and dermatomes, Chest: equal rise and fall of the chest, no accessory muscle use, decreased in the bases with scattered crackles throughout, on 2LNC Cardiac: Regular rate and rhythm, telemetry reviewed- NSR, skin warm dry, cap refill <3 seconds, peripheral pulses +2 no JVD, no murmur, no edema GI: NABS x 4 quadrants, soft, nontender to palpation, no rebound, guarding or tenderness : Spontaneously voiding, no pain, no CVA tenderness, Extremities: Normal inspection, no peripheral edema or erythema, calfs nontender to palpation Psych: Normal mood and affect Skin: no rash or erythema Results & Data Results & Data ([facility]) Vital Signs (Past 12 Hours) Vital Signs Temp Pulse Resp BP Pulse Ox 02/16/21 17:40 75 23 92 02/16/21 17:38 78 16 119/66 88 L 02/16/21 17:37 81 18 85 L 02/16/21 16:20 72 20 94 02/16/21 16:10 80 21 92 02/16/21 16:01 74 23 141/88 H 94 02/16/21 16:00 86 18 92 02/16/21 15:50 82 18 93 02/16/21 15:40 80 22 93 02/16/21 15:30 80 31 H 125/82 93 02/16/21 15:27 80 20 92 02/16/21 15:20 88 26 H 92 02/16/21 15:10 84 27 H 93 02/16/21 15:00 79 22 131/77 93 02/16/21 14:50 81 30 H 92 02/16/21 14:40 79 25 H 92 02/16/21 14:30 81 24 127/70 92 02/16/21 14:20 83 17 92 02/16/21 14:18 81 19 93 02/16/21 14:01 37.0 C 80 20 127/70 92 Laboratory Results Abnormal lab results 02/16/21 02/16/21 02/16/21 Range/Units 14:26 14:26 15:49 RBC 4.69 L (4.7-6.1) M/uL Neut # (Auto) 6.85 H (1.4-6.5) K/uL Lymph # (Auto) 0.67 L (1.2-3.4) K/uL Barber # (Auto) 1.22 H (0.11-0.59) K/uL Immature Gran # (Auto) 0.11 H (0.00-0.02) K/uL Sodium 134 L (136-145) mmol/L BUN/Creatinine Ratio 24.2 H (10-20) Glucose 102 H (70-99) mg/dl Total Creatine Kinase 30 L (39-308) U/L Albumin 2.7 L (3.4-5.0) gm/dl Globulin 4.2 H (2.5-4.0) gm/dl Albumin/Globulin Ratio 0.6 L (0.9-2) Urine Ketones (Negative) SARS-CoV-2 (PCR) POSITIVE A* (Negative) 02/16/21 Range/Units 15:49 RBC (4.7-6.1) M/uL Neut # (Auto) (1.4-6.5) K/uL Lymph # (Auto) (1.2-3.4) K/uL Barber # (Auto) (0.11-0.59) K/uL Immature Gran # (Auto) (0.00-0.02) K/uL Sodium (136-145) mmol/L BUN/Creatinine Ratio (10-20) Glucose (70-99) mg/dl Total Creatine Kinase (39-308) U/L Albumin (3.4-5.0) gm/dl Globulin (2.5-4.0) gm/dl Albumin/Globulin Ratio (0.9-2) Urine Ketones 1+ H (Negative) SARS-CoV-2 (PCR) (Negative) Diagnostic Findings Chest X-Ray 02/16/21 15:27 XR chest 1V portable HISTORY: 70 years-old Male Chest Pain acute atypical chest pain COMPARISON: Chest radiograph 09/06/2019 TECHNIQUE: Portable AP view of the chest FINDINGS: Cardiac silhouette is enlarged, unchanged. Mild interstitial coarsening with ill-defined bibasilar and right upper lung predominant airspace opacities. There is no pneumothorax or large pleural effusion. Degenerative changes of the shoulders and spine. IMPRESSION: Bibasilar and right upper lung predominant opacities are suggestive of multifocal pneumonia. ACT 112: Negative or not required by law. The above report was generated using voice recognition software. It may contain grammatical, syntax or spelling errors. Electronically signed by: Eddie Munguia M.D. 02/16/2021 4:[address] 02/16/21 15:28 CT head/brain wo con CLINICAL HISTORY: 70 years-old Male with covid, confusion, dizziness. Acute dizziness with confusion. COVID Positive. TECHNIQUE: Multiple axial CT images of the head were obtained without contrast. A dose lowering technique was utilized adhering to the principles of ALARA. CT DOSE: 1105.10 mGy.cm COMPARISON: Head CT 09/06/2019 FINDINGS: No acute intracranial hemorrhage, midline shift, intracranial mass, hydrocephalus, territorial ischemia or abnormal extra-axial collection. Minimal age-related involutional changes. Calcifications of the falx cerebri. The calvarium is intact. Prior bilateral lens repair. The paranasal sinuses, mastoid air cells, and middle ear cavities are clear. IMPRESSION: No acute intracranial abnormality. ACT 112: Negative or not required by law. The above report was generated using voice recognition software. It may contain grammatical, syntax or spelling errors. Electronically signed by: Eddie Munguia M.D. 02/16/2021 4:45 PM Medications Administered Home Medications omega 6-cbn-nis-fish oil 1,000 mg (120 mg-180 mg) capsule (Fish Oil) 1,000 mg PO QAM 01/22/18 [History Confirmed 02/16/21] cholecalciferol (vitamin D3) 25 mcg (1,000 unit) capsule (Vitamin D3) 1,000 unit PO HS #90 cap 11/22/18 [Rx Confirmed 02/16/21] duloxetine 60 mg capsule,delayed release 60 mg PO QPM #90 cap 06/20/20 [Rx Confirmed 02/16/21] fluticasone propionate 50 mcg/actuation nasal spray,suspension (Flonase Allergy Relief) 2 spray INTRANASAL HS #15.8 ml 09/06/20 [Rx Confirmed 02/16/21] modafinil 100 mg tablet 100 mg PO QAM #90 tab 09/24/20 [Rx Confirmed 02/16/21] atorvastatin 20 mg tablet 20 mg PO QPM 12/20/20 [History Confirmed 02/16/21] celecoxib 100 mg capsule (Celebrex) 100 mg PO QAM #90 cap 12/21/20 [Rx Confirmed 02/16/21] aspirin 81 mg tablet,delayed release 81 mg PO BID #0 tab 01/04/21 [Rx Confirmed 02/16/21] Active Medications Acetaminophen (Acetaminophen 325 Mg Tab) 650 mg PO Q4H PRN PRN Reason: Pain or Fever Stop: 03/18/21 18:51 Enoxaparin Sodium (Enoxaparin Inj 40 Mg/0.4 Ml Syr) 40 mg SQ Q12H FRANKY Stop: 03/18/21 18:59 Remdesivir 200 mg/ Sodium (Chloride) 250 mls @ 125 mls/hr IV 1915 ONE; Protocol Stop: 02/16/21 21:14 Remdesivir 100 mg/ Sodium (Chloride) 250 mls @ 250 mls/hr IV Q24H FRANKY; Protocol Stop: 02/20/21 19:59 Dexamethasone 6 mg/ Syringe 1.5 mls @ 1 mls/min IV DAILY FRANKY Stop: 02/27/21 08:59 Ondansetron HCl (Ondansetron Inj 2 Mg/Ml 2 Ml Vial) 4 mg IV Q6H PRN PRN Reason: Nausea Stop: 03/18/21 18:51 Polyethylene Glycol (Polyethylene (Miralax) 17 Gm Pack) 17 gm PO DAILY PRN PRN Reason: Constipation Stop: 03/18/21 18:51 Sodium Chloride (Sodium Chloride 0.9% 10ml Flush) 30 ml IV Q24H FRANKY Stop: 02/20/21 19:01 ECG Additional Comments: Normal sinus rhythm Normal ECG When compared with ECG of 06-SEP-2019 13:23, Premature ventricular complexes are no longer Present Code Status & VTE Plan Code Status CODE: FULL VTE: SCDS, Lovenox 40mg q12 VTE Prophylaxis Plan VTE Prophylaxis will be ordered: Yes Supervising Physician Co-Signing Physician Notes Patient seen and examined, chart reviewed, case discussed with Mateusz Jean and I agree with the assessment and plan as above except as otherwise noted General: A&Ox3. NAD. Cooperative. HEENT: Atraumatic, normocephalic. Pulm: Scattered crackles, without wheezes/rales. Symmetrical chest rise. No increase work of breathing. No respiratory distress. Cardiac: RRR, -mrg. Radial pulses intact and symmetrical. Abdominal: Nontender, nondistended, soft. BS present. All labs and images reviewed COVID 19, patient vaccinated with booster. Onset of sx ~02/08. Will be placed on dex/remdesivir. Does not meet criteria for baricitinib. Supplemental oxygen to maintain O2 sat >88%. PG Care Time/CCT Total # of Minutes Spent Total Time Spent with Patient: Total time spent is greater than 50% in coordination of care (as documented) at patient's floor/unit and/or counseling patient: Coding Level of Care Code 25651 Initial Inpt Care Lvl 3 Diagnoses COVID-19 U07.1 Hypoxia R09.02 Aortic valve sclerosis I35.8 H/O: HTN (hypertension) Z86.79 Paroxysmal atrial fibrillation I48.0 Hyperlipidemia E78.5 Lumbar spinal stenosis M48.061 Disc degeneration, lumbar M51.36 Sleep apnea G47.30 BPH loc w urin obs/LUTS N40.1
[2021-02-16 20:56] LABS: Fibrinogen 796 mg/dl (184-400)
[2021-02-16] MEDS ORDERED: SODIUM CHLORIDE 0.9% 10ML FLUSH IV SCH (21:00)
[2021-02-16] MEDS: ENOXAPARIN INJ 40 MG/0.4 ML SYR SQ SCH (21:29)
[2021-02-16] MEDS: DULoxetine HCL 60 MG CAP PO SCH (21:34)
[2021-02-16] MEDS: ATORVASTATIN 20 MG TAB PO SCH (21:34)
[2021-02-16] MEDS: FLUTICASONE PROPIONATE NA SPR 16 GM BTL SCH (21:34)
[2021-02-16] MEDS: ASPIRIN 81 MG ECTAB PO SCH (21:34)
[2021-02-16] MEDS: CHOLECALCIFEROL 1,000 UNITS 25 MCG TAB PO SCH (21:34)
[2021-02-16] MEDS: PANTOprazole 40 MG in SYRINGE 0 ML IV SCH (21:34)
[2021-02-17] MEDS: ALBUTEROL HFA 8 GM INHALER INH SCH ×2 (02:01→09:31)
[2021-02-17] MEDS ORDERED: ALBUTEROL HFA 8 GM INHALER INH PRN (08:16)
[2021-02-17 08:42] LABS: Basophils # (auto) 0.02 K/uL (0-0.2); Basophils % (auto) 0.3 %; Hematocrit (blood only) 42.3 % (42-52); Immature Granulocytes # (auto) 0.19 K/uL (0.00-0.02); Immature Granulocytes % (auto) 2.6 %; Lymphocytes % (auto) 8.2 %; Mean Corpuscular Hemoglobin 30.3 pg (25-34); Mean Corpuscular Hgb Conc 33.1 g/dL (32-36); Mean Corpuscular Volume 91.6 fL (80-100); Mean Platelet Volume 9.4 fL (7.4-10.4); Monocytes # (auto) 0.62 K/uL (0.11-0.59); Monocytes % (auto) 8.5 %; Neutrophils % (auto) 80.4 %; Platelet Count 420 K/uL (130-400); RDW Coefficient of Variation 13.4 % (11.5-14.5); RDW Standard Deviation 44.5 fL (36.4-46.3); Red Blood Count 4.62 M/uL (4.7-6.1); White Blood Count 7.33 K/uL (4.8-10.8)
[2021-02-17 09:18] LABS: BUN Creatinine Ratio 21.3 (10-20); Calcium 9.1 mg/dl (8.5-10.1); Creatinine Clr Calc Pharmacy 116.1 ml/min; Est GFR (Non-African American) 89.7 ml/min; Magnesium 2.3 mg/dl (1.8-2.4); Potassium 4.1 mmol/L (3.5-5.1)
[2021-02-17] MEDS: ASPIRIN 81 MG ECTAB PO SCH ×2 (09:22→20:30)
[2021-02-17] MEDS: ENOXAPARIN INJ 40 MG/0.4 ML SYR SQ SCH ×2 (09:23→17:52)
[2021-02-17] MEDS: CELECOXIB 100 MG CAP PO SCH (09:23)
[2021-02-17] MEDS: PANTOprazole 40 MG in SYRINGE 0 ML IV SCH ×2 (09:23→20:30)
[2021-02-17] MEDS: dexAMETHasone 6 MG in SYRINGE 0 ML IV SCH (09:23)
[2021-02-17] MEDS ORDERED: FUROSEMIDE INJ 20 MG/2 ML VIAL IV ONE (09:55)
[2021-02-17] MEDS: modafiniL 100 MG TAB PO SCH (12:45)
--- NOTE | 2021-02-17 16:30 | Hospitalist Progress Note ---
Date of Service February 17, 2021 Assessment & Plan (1) COVID-19: Plan: COVID 19 vaccinated with booster - Approx day of illness day 8 - Remdisivir for 5 days - Decadron 6mg IV daily increase dosing may be required- if he becomes candidate for baricitinib or tocilizumab will need to go back to 6mg IV daily - Albuterol inh scheduled q6 hours - Self proning and rotation therapy q2 hours - CRP-10.80 - Fibrinogen/LDH/Ferritin/PCT pending on admission - Currently on 2LNC- titrate o2 for SPO2 >92 - NC/HFNC/CPAP/BiPAP/INTUBATION - Currently no evidence of bacterial infection hold antibiotics -BUN/creatinine ratio slightly elevated, creatinine normal, increased crackles at the bases. Will trial low-dose of Lasix, if creatinine bumps hold. Spot dose as indicated. (2) Hypoxia: Plan: Hypoxia without respiratory failure at this time - As above (3) Aortic valve sclerosis: Plan: No therapy as outpatient - follow fluid volume status (4) H/O: HTN (hypertension): Plan: Follow while in house (5) Paroxysmal atrial fibrillation: Plan: No documented re-occurrence since 2011 - continue aspirin - follow telemetry with acute illness (6) Hyperlipidemia: Plan: Continue statin (7) Lumbar spinal stenosis: Plan: Continue celecoxib will add PPI with Decadron and NSAID (8) Disc degeneration, lumbar: Plan: As above (9) Sleep apnea: Plan: Stopped his CPAP at home as he did not notice any difference - He is on Modafinil at home- continue - may need CPAP/BIPAP if oxygenation becomes concerning (10) BPH loc w urin obs/LUTS: Plan: Small frequent voids - follow Admission and Anticipated Discharge Date Admission Date: February 16, 2021 Subjective Seen at bedside. Continues with some shortness of breath, otherwise no new symptoms. Intermittent cough. No chest pain/chest pressure/palpitations/lightheadedness/dizziness. Slightly increased oxygen requirement to 4 L this afternoon. Tolerating remdesivir. No additional quest ions/concerns at side of bedside assessment Review of Systems Review of Systems: All systems reviewed & are unremarkable except as noted in Subjective Physical Exam Physical Exam: General: A&Ox3. NAD. Cooperative. HEENT: Atraumatic, normocephalic. Pulm: Good air movement, scattered crackles increased at the bases,wheezes, - rales, -rhonchi. Symmetrical chest rise. On nasal cannula. No respiratory distress. Cardiac: RRR, -mrg. Radial pulses intact and symmetrical. Abdominal: Nontender, nondistended, soft. BS present. Results & Data Results & Data ([facility]) Vital Signs (Past 12 Hours) Vital Signs Temp Pulse Pulse Resp BP Pulse Ox 02/17/21 15:58 36.4 C L 73 19 108/73 89 L 02/17/21 11:25 36.3 C L 76 18 115/72 90 02/17/21 10:19 61 02/17/21 06:33 36.4 C L 65 17 106/62 91 PG Care Time/CCT Total # of Minutes Spent Total Time Spent with Patient: Total time spent is greater than 50% in coordination of care (as documented) at patient's floor/unit and/or counseling patient: Coding Level of Care Code 04157 Subseq Hosp Care Lvl 2 Diagnoses COVID-19 U07.1 Hypoxia R09.02 Aortic valve sclerosis I35.8 H/O: HTN (hypertension) Z86.79 Paroxysmal atrial fibrillation I48.0 Hyperlipidemia E78.5 Lumbar spinal stenosis M48.061 Disc degeneration, lumbar M51.36 Sleep apnea G47.30 BPH loc w urin obs/LUTS N40.1
[2021-02-17] MEDS: CHOLECALCIFEROL 1,000 UNITS 25 MCG TAB PO SCH (20:30)
[2021-02-17] MEDS: DULoxetine HCL 60 MG CAP PO SCH (20:30)
[2021-02-17] MEDS: ATORVASTATIN 20 MG TAB PO SCH (20:30)
[2021-02-17] MEDS: REMDESIVIR 100 MG in SODIUM CHLORIDE 0.9% 230 ML IV SCH (22:22)
[2021-02-17] MEDS: FLUTICASONE PROPIONATE NA SPR 16 GM BTL SCH (22:22)
[2021-02-18] MEDS: SODIUM CHLORIDE 0.9% 10ML FLUSH IV SCH ×2 (00:10→23:16)
[2021-02-18] MEDS: ENOXAPARIN INJ 40 MG/0.4 ML SYR SQ SCH ×2 (06:04→18:35)
[2021-02-18 06:43] LABS: Basophils # (auto) 0.04 K/uL (0-0.2); Basophils % (auto) 0.3 %; Eosinophils # (auto) 0.01 K/uL (0-0.5); Eosinophils % (auto) 0.1 %; Hematocrit (blood only) 40.4 % (42-52); Hemoglobin 13.3 g/dL (14.0-18.0); Immature Granulocytes # (auto) 0.42 K/uL (0.00-0.02); Immature Granulocytes % (auto) 2.9 %; Lymphocytes # (auto) 1.24 K/uL (1.2-3.4); Lymphocytes % (auto) 8.7 %; Mean Corpuscular Hgb Conc 32.9 g/dL (32-36); Mean Platelet Volume 9.5 fL (7.4-10.4); Monocytes # (auto) 1.64 K/uL (0.11-0.59); Monocytes % (auto) 11.5 %; Neutrophils % (auto) 76.5 %; Platelet Count 509 K/uL (130-400); RDW Coefficient of Variation 13.3 % (11.5-14.5); RDW Standard Deviation 44.3 fL (36.4-46.3); Red Blood Count 4.44 M/uL (4.7-6.1); White Blood Count 14.25 K/uL (4.8-10.8)
[2021-02-18 07:28] LABS: Calcium 9.2 mg/dl (8.5-10.1); Creatinine Clr Calc Pharmacy 96.5 ml/min; Est GFR (African American) 92.3 ml/min; Est GFR (Non-African American) 79.7 ml/min; Magnesium 2.3 mg/dl (1.8-2.4); Potassium 3.9 mmol/L (3.5-5.1)
--- NOTE | 2021-02-18 07:28 | Electrocardiogram Report ---
Test Reason : Blood Pressure : / mmHG Vent. Rate : 082 BPM Atrial Rate : 082 BPM P-R Int : 160 ms QRS Dur : 092 ms QT Int : 380 ms P-R-T Axes : 033 033 033 degrees QTc Int : 443 ms Normal sinus rhythm Normal ECG When compared with ECG of 06-SEP-2019 13:23, Premature ventricular complexes are no longer Present Confirmed by Benito Hernández ([id number]) on 02/18/2021 7:27:51 AM Referred By: REFERRED SELF Confirmed By:Benito Hernández
[2021-02-18] MEDS: ASPIRIN 81 MG ECTAB PO SCH (09:39)
[2021-02-18] MEDS: dexAMETHasone 6 MG in SYRINGE 0 ML IV SCH (09:39)
[2021-02-18] MEDS: CELECOXIB 100 MG CAP PO SCH (09:39)
[2021-02-18] MEDS: PANTOprazole 40 MG in SYRINGE 0 ML IV SCH (09:40)
[2021-02-18] MEDS: modafiniL 100 MG TAB PO SCH (09:43)
--- NOTE | 2021-02-18 13:29 | Hospitalist Progress Note ---
Date of Service February 18, 2021 Assessment & Plan (1) COVID-19: Plan: First symptoms: 02/08/2021 First tested: 02/16/2021 Vaccinated: Yes (received booster on 02/05/2021) Admission date: 02/16/2021 Admission O2 requirement: 3L NC Admission CRP: 10.8 Dexamethasone course started: 02/17/2020; End date: 02/25/2021 Remdesivir started: 02/16/2021 Tocilizumab/baricitinib contraindication: No need for high-flow O2 Antibiotics: None, procal < 0.05 DVT ppx: Lovenox 40 mg SQ Q12h Breathing treatments: Albuterol PRN Presently requiring 6L NC at rest. Does desat when moving around, but at rest, hanging in at 93%. (2) Hypoxia: Plan: Hypoxia without respiratory failure at this time - As above (3) Aortic valve sclerosis: Plan: No therapy as outpatient. - Follow fluid volume status (4) H/O: HTN (hypertension): Plan: BP today is 115/70. - Monitor (5) Paroxysmal atrial fibrillation: Plan: No documented re-occurrence since 2011. - Hold aspirin while inpatient - Follow telemetry with acute illness (6) Hyperlipidemia: Plan: - Continue statin (7) Lumbar spinal stenosis: Plan: - Continue celecoxib - Continue PPI PO BID (8) Disc degeneration, lumbar: Plan: As above (9) Sleep apnea: Plan: Stopped his CPAP at home as he did not notice any difference. - He is on Modafinil at home - continue (10) BPH loc w urin obs/LUTS: Plan: Small frequent voids. - Follow Admission and Anticipated Discharge Date Admission Date: February 16, 2021 Subjective Doing well today. No major changes today. Breathing fairly comfortably at rest, but when he gets up to move around, he gets hypoxemic. Reports no fevers/chills, chest pain, shortness of breath, abdominal pain, nausea, or vomiting. Physical Exam Constitutional: WD/WN, vitals as above Eyes: EOM intact bilaterally; no conjunctival abnormality ENMT: external ear and nose normal, oropharynx normal Neck: trachea midline, no thyromegaly normal visual inspection Respiratory: normal respiratory effort, lungs clear to auscultation no respiratory distress Cardiovascular: RRR, no murmur, no edema Gastrointestinal (Abdomen): Inspection/Auscultation: abdomen normal to inspection; abdomen not distended Musculoskeletal: no cyanosis or clubbing, extremities motor strength 5/5 Skin: no rashes, warm and dry Neurologic: moves all extremities and awake Psychiatric: Orientation: alert, oriented to person and cooperative Results & Data Results & Data ([facility]) Vital Signs (Past 12 Hours) Vital Signs Temp Pulse Resp BP Pulse Ox 02/18/21 12:22 36.4 C L 65 20 114/68 93 02/18/21 07:53 36.3 C L 71 20 117/73 90 02/18/21 03:14 36.8 C 76 20 98/58 L 92 02/18/21 01:30 92 PG Care Time/CCT Total # of Minutes Spent Total Time Spent with Patient: Total time spent is greater than 50% in coordination of care (as documented) at patient's floor/unit and/or counseling patient: Coding Level of Care Code 11264 Subseq Hosp Care Lvl 2 Diagnoses COVID-19 U07.1 Hypoxia R09.02 Aortic valve sclerosis I35.8 H/O: HTN (hypertension) Z86.79 Paroxysmal atrial fibrillation I48.0 Hyperlipidemia E78.5 Lumbar spinal stenosis M48.061 Disc degeneration, lumbar M51.36 Sleep apnea G47.30 BPH loc w urin obs/LUTS N40.1
[2021-02-18] MEDS: REMDESIVIR 100 MG in SODIUM CHLORIDE 0.9% 230 ML IV SCH (21:06)
[2021-02-18] MEDS: FLUTICASONE PROPIONATE NA SPR 16 GM BTL SCH (21:06)
[2021-02-18] MEDS: DULoxetine HCL 60 MG CAP PO SCH (21:07)
[2021-02-18] MEDS: CHOLECALCIFEROL 1,000 UNITS 25 MCG TAB PO SCH (21:07)
[2021-02-18] MEDS: ATORVASTATIN 20 MG TAB PO SCH (21:07)
[2021-02-18] MEDS: PANTOprazole 40 MG TAB PO SCH (21:46)
[2021-02-19] MEDS: ENOXAPARIN INJ 40 MG/0.4 ML SYR SQ SCH ×2 (06:19→17:49)
[2021-02-19 07:52] LABS: Basophils # (auto) 0.03 K/uL (0-0.2); Basophils % (auto) 0.2 %; Eosinophils # (auto) 0.05 K/uL (0-0.5); Eosinophils % (auto) 0.4 %; Hematocrit (blood only) 40.8 % (42-52); Hemoglobin 13.4 g/dL (14.0-18.0); Immature Granulocytes % (auto) 3.7 %; Lymphocytes # (auto) 1.47 K/uL (1.2-3.4); Mean Corpuscular Hemoglobin 29.9 pg (25-34); Mean Corpuscular Hgb Conc 32.8 g/dL (32-36); Mean Corpuscular Volume 91.1 fL (80-100); Mean Platelet Volume 9.4 fL (7.4-10.4); Monocytes # (auto) 1.39 K/uL (0.11-0.59); Monocytes % (auto) 10.4 %; Neutrophils % (auto) 74.3 %; Platelet Count 513 K/uL (130-400); RDW Coefficient of Variation 13.2 % (11.5-14.5); RDW Standard Deviation 44.1 fL (36.4-46.3); Red Blood Count 4.48 M/uL (4.7-6.1); White Blood Count 13.34 K/uL (4.8-10.8)
[2021-02-19 08:32] LABS: Albumin Level 2.3 gm/dl (3.4-5.0); BUN Creatinine Ratio 34.5 (10-20); Creatinine Clr Calc Pharmacy 116.4 ml/min; Est GFR (Non-African American) 89.7 ml/min; Magnesium 2.2 mg/dl (1.8-2.4)
[2021-02-19 08:34] LABS: Albumin Globulin Ratio 0.6 (0.9-2); Bilirubin,Total 0.2 mg/dl (0.2-1); Globulin 3.6 gm/dl (2.5-4.0); Total Protein 5.9 gm/dl (6.4-8.2)
[2021-02-19] MEDS: modafiniL 100 MG TAB PO SCH (09:33)
[2021-02-19] MEDS: PANTOprazole 40 MG TAB PO SCH ×2 (09:33→21:20)
[2021-02-19] MEDS: CELECOXIB 100 MG CAP PO SCH (09:33)
[2021-02-19] MEDS: dexAMETHasone 6 MG in SYRINGE 0 ML IV SCH (09:33)
--- NOTE | 2021-02-19 13:29 | Hospitalist Progress Note ---
Date of Service February 19, 2021 Assessment & Plan (1) COVID-19: Plan: First symptoms: 02/08/2021 First tested: 02/16/2021 Vaccinated: Yes (received booster on 02/05/2021) Admission date: 02/16/2021 Admission O2 requirement: 3L NC Admission CRP: 10.8 Dexamethasone course started: 02/17/2020; End date: 02/25/2021 Remdesivir started: 02/16/2021 Tocilizumab/baricitinib contraindication: No need for high-flow O2 Antibiotics: None, procal < 0.05 DVT ppx: Lovenox 40 mg SQ Q12h Breathing treatments: Albuterol PRN Presently requiring 4L NC at rest. Down 2L from yesterday and feeling fairly well. Had not been up out of bed yet today, but will try. Did discuss that once he's reliably under 6L with exertion, he can probably go home. (2) Hypoxia: Plan: Hypoxia without respiratory failure at this time - As above (3) Aortic valve sclerosis: Plan: No therapy as outpatient. - Follow fluid volume status -> Appears euvolemic. (4) H/O: HTN (hypertension): Plan: BP today is 100/65. - Monitor (5) Paroxysmal atrial fibrillation: Plan: No documented re-occurrence since 2011. - Hold aspirin while inpatient - Follow telemetry with acute illness (6) Hyperlipidemia: Plan: - Continue statin (7) Lumbar spinal stenosis: Plan: - Continue celecoxib - Continue PPI PO BID (8) Disc degeneration, lumbar: Plan: As above (9) Sleep apnea: Plan: Stopped his CPAP at home as he did not notice any difference. - He is on Modafinil at home - continue (10) BPH loc w urin obs/LUTS: Plan: Small frequent voids. - Follow Admission and Anticipated Discharge Date Admission Date: February 16, 2021 Subjective Doing well today. Slept well, no major coughing issues. Breathing fairly comfortably at rest, but when he gets up to move around, he gets hypoxemic. Reports no fevers/chills, chest pain, abdominal pain, nausea, or vomiting. Physical Exam Constitutional: WD/WN, vitals as above Eyes: EOM intact bilaterally; no conjunctival abnormality ENMT: external ear and nose normal, oropharynx normal Neck: trachea midline, no thyromegaly normal visual inspection Respiratory: normal respiratory effort, lungs clear to auscultation no re spiratory distress Cardiovascular: RRR, no murmur, no edema Gastrointestinal (Abdomen): Inspection/Auscultation: abdomen normal to inspection; abdomen not distended Musculoskeletal: no cyanosis or clubbing, extremities motor strength 5/5 Skin: no rashes, warm and dry Neurologic: moves all extremities and awake Psychiatric: Orientation: alert, oriented to person and cooperative Results & Data Results & Data ([facility]) Vital Signs (Past 12 Hours) Vital Signs Temp Pulse Pulse Resp BP Pulse Ox 02/19/21 11:53 36.4 C L 64 18 100/64 90 02/19/21 07:55 55 L 02/19/21 07:43 36.7 C 59 L 20 136/78 93 02/19/21 03:46 36.4 C L 60 18 102/56 L 92 02/19/21 03:00 36.5 C 58 L 20 144/82 H 95 PG Care Time/CCT Total # of Minutes Spent Total Time Spent with Patient: Total time spent is greater than 50% in coordination of care (as documented) at patient's floor/unit and/or counseling patient: Coding Level of Care Code 93048 Subseq Hosp Care Lvl 2 Diagnoses COVID-19 U07.1 Hypoxia R09.02 Aortic valve sclerosis I35.8 H/O: HTN (hypertension) Z86.79 Paroxysmal atrial fibrillation I48.0 Hyperlipidemia E78.5 Lumbar spinal stenosis M48.061 Disc degeneration, lumbar M51.36 Sleep apnea G47.30 BPH loc w urin obs/LUTS N40.1
[2021-02-19] MEDS: REMDESIVIR 100 MG in SODIUM CHLORIDE 0.9% 230 ML IV SCH (21:19)
[2021-02-19] MEDS: FLUTICASONE PROPIONATE NA SPR 16 GM BTL SCH (21:19)
[2021-02-19] MEDS: DULoxetine HCL 60 MG CAP PO SCH (21:20)
[2021-02-19] MEDS: CHOLECALCIFEROL 1,000 UNITS 25 MCG TAB PO SCH (21:20)
[2021-02-19] MEDS: ATORVASTATIN 20 MG TAB PO SCH (21:21)
[2021-02-19] MEDS: SODIUM CHLORIDE 0.9% 10ML FLUSH IV SCH (22:23)
[2021-02-20] MEDS: ENOXAPARIN INJ 40 MG/0.4 ML SYR SQ SCH ×2 (05:59→17:57)
[2021-02-20 08:34] LABS: Alanine Aminotransferase 72 (12-78); Aspartate Aminotransferase 36 U/L (15-37)
[2021-02-20] MEDS: PANTOprazole 40 MG TAB PO SCH ×2 (09:10→20:12)
[2021-02-20] MEDS: modafiniL 100 MG TAB PO SCH (09:10)
[2021-02-20] MEDS: dexAMETHasone 6 MG in SYRINGE 0 ML IV SCH (09:10)
[2021-02-20] MEDS: CELECOXIB 100 MG CAP PO SCH (09:10)
--- NOTE | 2021-02-20 19:13 | Hospitalist Progress Note ---
Date of Service February 20, 2021 Assessment & Plan (1) COVID-19: Plan: Pneumonia due to coronavirus disease 2019 First symptoms: 02/08/2021 First tested: 02/16/2021 Vaccinated: Yes (received booster on 02/05/2021) Admission date: 02/16/2021 Admission O2 requirement: 3L NC Admission CRP: 10.8 Dexamethasone course started: 02/17/2020; End date: 02/25/2021 Remdesivir started: 02/16/2021; end date: 02/20/2021 Tocilizumab/baricitinib contraindication: No need for high-flow O2 Antibiotics: None, procal < 0.05 DVT ppx: Lovenox 40 mg SQ Q12h Breathing treatments: Albuterol PRN Continue incentive spirometry Presently requiring 4-6 NC at rest, still desaturates with exertion, but improving. If oxygenation improves overnight, could consider a two-step walk test tomorrow but seems more likely to be here at least another 2 days. (2) Hypoxia: Plan: Acute respiratory failure with hypoxia, secondary to Covid-19 pneumonia As above (3) Paroxysmal atrial fibrillation: Plan: No documented re-occurrence since 2011. None on telemetry here (4) Hyperlipidemia: Plan: - Continue statin, restart home aspirin (5) Lumbar spinal stenosis: Plan: - Continue celecoxib (6) Sleep apnea: Plan: Stopped his CPAP at home as he did not notice any difference. - He is on Modafinil at home - continue (7) BPH loc w urin obs/LUTS: Plan: Status post TURP in 2018 Follows with urology Small frequent voids. - Follow (8) Prediabetes: Plan: Hemoglobin A1c 6.0% few months ago Blood sugars here have been excellent even with being on corticosteroids No need for insulin (9) Depression: Plan: Continue home duloxetine Plan: DVT prophylaxis-Lovenox GI prophylaxis-Protonix but decrease down to once a day Disposition-continued stay on telemetry unit of [facility], possible discharge home next 1 to 2 days if oxygen requirement improves Admission and Anticipated Discharge Date Admission Date: February 16, 2021 Subjective Feels well today, has needed between 4 and 6 L oxygen nasal cannula. Denies shortness of breath or cough. No chest pain or abdominal pain, no nausea. He is eating drinking well, moving his bowels and making urine. He is ambulating around the end of his bed and feels well with this. Telemetry with sinus bradycardia normal sinus rhythm with rates in the 50s to 80s, some PVCs. Review of Systems Review of Systems: All systems reviewed & are unremarkable except as noted in HPI & below Physical Exam Constitutional: WD/WN, vitals as above Eyes: + anicteric sclerae Neck: trachea midline, no thyromegaly Respiratory: normal respiratory effort; no cough Auscultation: + crackles (Bilateral lower and middle lung hawley); no rhonchi and no wheezes Cardiovascular: RRR, no murmur, no edema Chest (Breasts): Chest: normal inspection of chest Gastrointestinal (Abdomen): normal bowel sounds, soft, nontender, no hepatosplenomegaly Musculoskeletal: Extremities: extremities normal to inspection; no cyanosis and no clubbing Skin: no rashes, warm and dry Neurologic: moves all extremities and awake; no focal motor deficits Psychiatric: A+Ox3, euthymic affect Lymphatic: no lymphedema Results & Data Results & Data ([facility]) Vital Signs (Past 12 Hours) Vital Signs Temp Pulse Pulse Resp BP Pulse Ox 02/20/21 17:56 94 02/20/21 15:40 81 02/20/21 15:38 36.6 C 71 22 103/68 93 02/20/21 11:53 36.6 C 68 20 100/66 91 02/20/21 09:25 55 L 02/20/21 08:00 36.6 C 61 19 109/68 94 Laboratory Results 02/20/21 02/20/21 02/20/21 Range/Units 20:29 16:42 11:51 POC Glucose 114 H 119 H 106 H (70-99) mg/dl AST (15-37) U/L ALT (12-78) 02/20/21 02/20/21 Range/Units 08:00 07:34 POC Glucose 94 (70-99) mg/dl AST 36 (15-37) U/L ALT 72 (12-78) PG Care Time/CCT Total # of Minutes Spent Total Time Spent with Patient: Total time spent is greater than 50% in coordination of care (as documented) at patient's floor/unit and/or counseling patient: Coding Level of Care Code 47919 Subseq Hosp Care Lvl 3 Diagnoses COVID-19 U07.1 Hypoxia R09.02 Paroxysmal atrial fibrillation I48.0 Hyperlipidemia E78.5 Lumbar spinal stenosis M48.061 Sleep apnea G47.30 BPH loc w urin obs/LUTS N40.1 Prediabetes R73.03 Depression F32.9
[2021-02-20] MEDS: REMDESIVIR 100 MG in SODIUM CHLORIDE 0.9% 230 ML IV SCH (20:09)
[2021-02-20] MEDS: CHOLECALCIFEROL 1,000 UNITS 25 MCG TAB PO SCH (20:12)
[2021-02-20] MEDS: ATORVASTATIN 20 MG TAB PO SCH (20:12)
[2021-02-20] MEDS: FLUTICASONE PROPIONATE NA SPR 16 GM BTL SCH (20:13)
[2021-02-20] MEDS: DULoxetine HCL 60 MG CAP PO SCH (20:13)
[2021-02-21 07:27] LABS: Basophils # (auto) 0.04 K/uL (0-0.2); Basophils % (auto) 0.3 %; Eosinophils # (auto) 0.13 K/uL (0-0.5); Hemoglobin 14.2 g/dL (14.0-18.0); Immature Granulocytes # (auto) 0.55 K/uL (0.00-0.02); Immature Granulocytes % (auto) 4.3 %; Lymphocytes # (auto) 2.13 K/uL (1.2-3.4); Lymphocytes % (auto) 16.6 %; Mean Corpuscular Hemoglobin 30.1 pg (25-34); Mean Corpuscular Volume 91.3 fL (80-100); Mean Platelet Volume 9.3 fL (7.4-10.4); Monocytes # (auto) 1.36 K/uL (0.11-0.59); Monocytes % (auto) 10.6 %; Neutrophils # (auto) 8.66 K/uL (1.4-6.5); Neutrophils % (auto) 67.2 %; Platelet Count 584 K/uL (130-400); RDW Coefficient of Variation 13.4 % (11.5-14.5); RDW Standard Deviation 44.7 fL (36.4-46.3); Red Blood Count 4.71 M/uL (4.7-6.1); White Blood Count 12.87 K/uL (4.8-10.8)
[2021-02-21 08:09] LABS: Albumin Level 2.4 gm/dl (3.4-5.0); BUN Creatinine Ratio 32.6 (10-20); C Reactive Protein 1.91 mg/dl (0-0.29); Calcium 8.9 mg/dl (8.5-10.1); Est GFR (African American) 102.9 ml/min; Est GFR (Non-African American) 88.8 ml/min
[2021-02-21 08:11] LABS: Albumin Globulin Ratio 0.7 (0.9-2); Globulin 3.6 gm/dl (2.5-4.0)
[2021-02-21] MEDS: ENOXAPARIN INJ 40 MG/0.4 ML SYR SQ SCH (08:21)
[2021-02-21] MEDS: dexAMETHasone 6 MG in SYRINGE 0 ML IV SCH (08:21)
[2021-02-21] MEDS: CELECOXIB 100 MG CAP PO SCH (08:21)
[2021-02-21] MEDS: modafiniL 100 MG TAB PO SCH (08:25)
[2021-02-21 08:50] LABS: Bilirubin,Total 0.3 mg/dl (0.2-1)
[2021-02-21] MEDS ORDERED: PANTOprazole 40 MG TAB PO SCH (09:00)
[2021-02-21] MEDS ORDERED: ASPIRIN 81 MG ECTAB PO SCH (09:00)
--- NOTE | 2021-02-21 17:08 | Discharge Summary ---
Date of Service February 21, 2021 Admission HPI Per Admitting Provider 70 YOM with past medical history of: Bladder cancer, OA, hip replacement, knee replacement, afib(2012 no recurrence), HLD, DAVID (on modafinil), Aortic valve sclerosis. Patient comes to the EMD today for worsening of fatigue, dysnpnea, lightheadedness. Patient started feeling ill on [id number] with complaints of head congestion, cough, fevers, body aches, and loss of sense of smell and taste. He was noting increase in fatigue and difficulty catching his breath when going around his house. He had COVID + test today. He is vaccinated and got his booster [id number], his is also ill, but doing Ok at this time per him. In the EMD he had routine labs drawn and CXR done. His CXR was notable for bilateral and RUL opacities he had a CT scan of his head performed for lightheadedness and confusion upon arrival, which was negative for acute process. He was noted to be 88% on room air and was placed on 2LNC with SPO2 now 93-96%. He was given 6mg of Decadron and hospitalist was consulted for admission. Patient will be admitted for COVID 19 hypoxia to continue steroid dosing of 6mg daily, ordered CRP and other biomarkers. Follow clinical course. Patient is vaccinated and did receive booster: COVID test on admission is: POSITIVE Principal Diagnosis COVID-19 pneumonia, acute respiratory failure with hypoxia Discharge Exam Constitutional WD/WN, vitals as above Eyes + anicteric sclerae Neck trachea midline, no thyromegaly Respiratory normal respiratory effort; no cough Auscultation: + crackles (Bilateral lower and middle lung hawley); no rhonchi and no wheezes Cardiovascular RRR, no murmur, no edema Chest (Breasts) Chest: normal inspection of chest Gastrointestinal (Abdomen) normal bowel sounds, soft, nontender, no hepatosplenomegaly Musculoskeletal Extremities: extremities normal to inspection; no cyanosis and no clubbing Skin no rashes, warm and dry Neurologic moves all extremities and awake; no focal motor deficits Psychiatric A+Ox3, euthymic affect Lymphatic no lymphedema Discharge Data Allergies Allergy/AdvReac Type Severity Reaction Status Date / Time penicillin V Allergy Unknown Rash, skin Verified 02/16/21 18:43 discoloration ether AdvReac Unknown Severe N/V Verified 02/16/21 18:43 Consultations 02/16/21 17:43 ED Decision to Admit Stat Ordered Studies 02/16/21 15:28 CT head/brain wo con Stat Hospital Course (1) COVID-19: Pneumonia due to coronavirus disease 2018 First symptoms: 02/08/2021 First tested: 02/16/2021 Vaccinated: Yes (received booster on 02/05/2021) Admission date: 02/16/2021 Admission O2 requirement: 3L NC Admission CRP: 10.8 Dexamethasone course started: 02/17/2020; End date: 02/25/2021-prescription sent to his pharmacy Remdesivir started: 02/16/2021; end date: 02/20/2021 Tocilizumab/baricitinib contraindication: No need for high-flow O2 Antibiotics: None, procal < 0.05 DVT ppx: Lovenox 40 mg SQ Q12h and will send home with Xarelto 10 mg p.o. once daily x35 days Breathing treatments: Albuterol PRN Continue incentive spirometry Requiring 2 L continuously of O2 at the time of discharge with exertion and at rest as per two-step walking test (2) Hypoxia: Acute respiratory failure with hypoxia, secondary to Covid-19 pneumonia As above (3) Paroxysmal atrial fibrillation: No documented re-occurrence since 2011. None on telemetry here (4) Hyperlipidemia: - Continue statin (5) Lumbar spinal stenosis: - Continue celecoxib (6) Sleep apnea: Stopped his CPAP at home as he did not notice any difference. - He is on Modafinil at home - continue (7) BPH loc w urin obs/LUTS: Status post TURP in 2018 Follows with urology Small frequent voids. - Follow (8) Prediabetes: Hemoglobin A1c 6.0% few months ago Blood sugars here have been excellent even with being on corticosteroids No need for insulin (9) Depression: Continue home duloxetine DVT prophylaxis-Lovenox SQ while here and sent home with low-dose Xarelto 10 mg daily as above GI prophylaxis-Protonix was given while here but can discontinue on discharge Disposition-stable for discharge home Total Time Total Time Spent Total Time Spent (In Minutes): 40 minutes Discharge Plan Discharge Items Patient Disposition: Home - Self-Care Reason For Visit: COVID 19, HYPOXIA Discharge Diagnosis: COVID-19 pneumonia, acute respiratory failure with hypoxia Condition on Discharge: Good Activity: As commented below Lifting: Gradually increase as tolerated Bathing: No limitations Exercise/Sports: Gradually increase as tolerated Non-emergency contact: Primary Care Provider Call non-emergency contact if: you have any medication questions, your symptoms worsen, you have a fever and your temperature is above 101 Follow-up/Referrals: Katy Noyola DO [Primary Care Provider] - (Please follow-up within 1 to 2 weeks.) Diet: Heart Healthy Addtl Attending Provider Instructions: You were admitted with COVID-19 and pneumonia and low oxygen levels. You had great improvement with treatment with dexamethasone and Remdesivir. Please finish out 4 more days of the dexamethasone tablet once a day in the morning. You will be placed on a low-dose of a blood thinner called Xarelto to prevent you from getting blood clots in the legs or lung that can be associated with hospitalization secondary to COVID-19. If you have any difficulties with bleed ing as we discussed, please come to the hospital or call your doctor. If you experience worsening chest pain, shortness of breath, oxygen levels less than 88%, leg pain or swelling, or any other acute concerns, please come back to the hospital or call 911. You should be wearing 2 L of oxygen via the nasal cannula at all times until your doctor tells you it is ok to come off of it. Pending Studies at Discharge: No Stand-Alone Forms: My [facility], Smoking Cessation Medications and DC Order Prescriptions: New dexamethasone 6 mg tablet 6 mg PO DAILY Qty: 4 RF: 0 Xarelto 10 mg tablet 10 mg PO DAILY 35 Days Qty: 35 RF: 0 Continued duloxetine 60 mg capsule,delayed release(DR/EC) 60 mg PO QPM Qty: 90 RF: 1 fluticasone propionate [Flonase Allergy Relief] 50 mcg/actuation spray,suspension 2 spray intranasal HS Qty: 15.8 RF: 2 modafinil 100 mg tablet 100 mg PO QAM Qty: 90 RF: 1 celecoxib [Celebrex] 100 mg capsule 100 mg PO QAM Qty: 90 RF: 1 cholecalciferol (vitamin D3) [Vitamin D3] 1,000 unit capsule 1,000 unit PO HS Qty: 90 RF: 1 omega [id number]-[id number]-fish oil [Fish Oil] 1,000 mg (120 mg-180 mg) Capsule 1,000 mg PO QAM RF: 0 atorvastatin 20 mg tablet 20 mg PO QPM RF: 0 Discontinued aspirin 81 mg tablet,delayed release (DR/EC) 81 mg PO BID Qty: 0 RF: 0 Discharge Orders: Discharge Order (Routine); Ordered 02/21/21 Ordered By: Qian Berry Admission Data Admit Date/Time: 02/16/21 18:53 Attending Provider: Qian Berry Admit Provider: Emil Goins Primary Care Provider: Katy Noyola Other Providers: Qian Berry Coding Level of Care Code D/C DAY MANAGEMENT >30 MINS Diagnoses COVID-19 U07.1 Hypoxia R09.02 Paroxysmal atrial fibrillation I48.0 Hyperlipidemia E78.5 Lumbar spinal stenosis M48.061 Sleep apnea G47.30 BPH loc w urin obs/LUTS N40.1 Prediabetes R73.03 Depression F32.9
== END 2021-02-21 17:30 | disposition home or self-care (01) | DRG 177 ==
LOC: ED 14:10 → EDINP 18:53 → SUATTDRO 18:53 → 2S 20:00